=== PATIENT | male | born 1945 | race Two or more races ===

== ENCOUNTER 2018-04-10 06:38 | Inpatient (IN) | payer OTHER ==
[2018-04-10] VITALS (72 sets, daily range): BP systolic 76–169; BP diastolic 42–148
[~2018-04-10] VITALS: Ht 165.1 cm; Wt 71.7 kg
--- NOTE | 2018-04-10 06:44 | NUR ---
PT PRESENTED TO THE ER WITH A C/O SOB. PT IS UZBEK SPEAKING ONLY. AUDIBLE WHEEZING NOTED. PT AMBULATED TO ER 1. DR. OLMSTEAD IS AT THE BEDSIDE.
[2018-04-10] MEDS ORDERED: IPRATROPIUM NEB FS 0.5 MG/2.5 ML AMPUL.NEB ONE (06:50)
[2018-04-10] MEDS ORDERED: methylPREDNISolone SOD SUCC 125 MG/2ML VIAL ONE (06:53)
[2018-04-10] MEDS ORDERED: ASPIRIN 325 MG TABLET ONE (06:53)
--- NOTE | 2018-04-10 06:58 | NUR ---
EKG IN PROGRESS AT THE BEDSIDE.
[2018-04-10] MEDS ORDERED: ASPIRIN 325 MG TABLET PO ONE (07:00)
[2018-04-10] MEDS ORDERED: methylPREDNISolone SOD SUCC 125 MG/2ML VIAL IV ONE (07:00)
[2018-04-10] MEDS ORDERED: ALBUTEROL FS 2.5 MG/3 ML VIAL.NEB NEB ONE (07:00)
[2018-04-10] MEDS ORDERED: IPRATROPIUM NEB FS 0.5 MG/2.5 ML AMPUL.NEB NEB ONE (07:00)
--- NOTE | 2018-04-10 07:00 | NUR ---
BREATHING TX STARTED.
--- NOTE | 2018-04-10 07:08 | NUR ---
RECEIVED REPORT FROM ANDRE ORAL PATHOLOGIST NURSE FOR ANALIA.
[2018-04-10 07:13] LABS: BASOPHILS # (AUTO) 0.1 /CMM (0.0-0.2); BASOPHILS % (AUTO) 0.7 % (0.0-2.0); EOSINOPHILS % (AUTO) 0.6 % (0.0-6.0); HEMATOCRIT 33 % (39-51); HEMOGLOBIN 10.7 g/dL (13.5-17.5); LYMPHOCYTES % (AUTO) 8.1 % (20.0-44.0); MEAN CORPUSCULAR HGB CONC 32 g/dl (31.0-36.0); MEAN CORPUSCULAR VOLUME 93 fL (80-96); NEUTROPHILS # (AUTO) 9.9 /CMM (1.8-8.9); NEUTROPHILS % (AUTO) 82.6 % (43.0-81.0); PLATELET COUNT (AUTO) 220 /CMM (150-450); RED BLOOD CELL COUNT(AUTO) 3.54 MIL/uL (4.5-6.0)
--- NOTE | 2018-04-10 07:20 | NUR ---
TELEGRAPH DISPATCHER AT BEDSIDE FOR X-RAY.
[2018-04-10 07:23] LABS: CALCIUM, SERUM 8.8 mg/dL (8.5-10.1); CARBON DIOXIDE 19 mmol/L (21-32); CHLORIDE 99 mmol/L (98-107); CREATININE 4.1 mg/dL (0.6-1.3); GLUCOSE 95 mg/dL (74-106); POTASSIUM 4.3 mmol/L (3.5-5.1); SODIUM SERUM 131 mmol/L (136-145); UREA NITROGEN, BLOOD 56 mg/dL (7-18)
[2018-04-10] MEDS ORDERED: NITROGLYCERIN PACKET 1 GM PACKET ONE (07:25)
[2018-04-10] MEDS ORDERED: FUROSEMIDE 40 MG/4 ML VIAL ONE (07:25)
[2018-04-10] MEDS ORDERED: FUROSEMIDE 40 MG/4 ML VIAL IV ONE (07:30)
[2018-04-10] MEDS ORDERED: NITROGLYCERIN PACKET 1 GM PACKET TOP ONE (07:30)
--- NOTE | 2018-04-10 07:30 | NUR ---
RT Placed pt on BiPap w charted settings per MD order. Pt tolerating settings well.
[2018-04-10 07:36] LABS: ALANINE AMINOTRANSFERASE 33 U/L (12-78); ALBUMIN 3.7 g/dL (3.4-5.0); ALKALINE PHOSPHATASE 40 U/L (46-116); ASPARTATE AMINOTRANSFERASE 27 U/L (15-37); B-TYPE NATRIURETIC PEPTIDE 15723 PG/ML (0-125); BILIRUBIN,DIRECT 0.2 mg/dL (0.0-0.2); BILIRUBIN,TOTAL 0.6 mg/dL (0.2-1.0); TOTAL PROTEIN, SERUM 7.2 g/dL (6.4-8.2)
[2018-04-10] MEDS ORDERED: DILTIAZEM HCL 50 MG IV ONE (07:58)
[2018-04-10] MEDS ORDERED: DILTIAZEM HCL 25 MG IV IV ONE (08:00)
--- NOTE | 2018-04-10 08:08 | NUR ---
[facility] PAGED ITS DR. HUTCHINS
[2018-04-10] MEDS ORDERED: OMEP20CA10 PO (08:23)
[2018-04-10] MEDS ORDERED: FURO40TA5 PO (08:23)
[2018-04-10] MEDS ORDERED: ALBU2.5V38 NEB (08:23)
[2018-04-10] MEDS ORDERED: TACR0.5C4 PO (08:23)
[2018-04-10] MEDS ORDERED: ALLO300T2 PO (08:23)
[2018-04-10] MEDS ORDERED: PRED10TA PO (08:23)
[2018-04-10] MEDS ORDERED: CARV3.122 PO (08:23)
[2018-04-10] MEDS ORDERED: LOSA25TA27 PO (08:23)
[2018-04-10] MEDS ORDERED: HYDR100T27 PO (08:23)
[2018-04-10] MEDS ORDERED: AMLO10TA6 PO (08:23)
[2018-04-10] MEDS ORDERED: IPRA4AER IH (08:23)
[2018-04-10] MEDS ORDERED: LEVO150T8 PO (08:23)
[2018-04-10] MEDS ORDERED: SODI650T PO (08:24)
--- NOTE | 2018-04-10 08:58 | NUR ---
CALLED PNEUMATIC TESTER MECHANIC AWILDA AND REPORT GIVEN, PATIENT IS GOING TO ROOM 259.
[2018-04-10] MEDS ORDERED: NTG 50 MG/D5W250 ML BOTTL 250 ML IV ONE ×2 (09:00→09:03)
[2018-04-10] MEDS ORDERED: ZOLPIDEM TARTRATE 5 MG TABLET PO PRN (09:30)
[2018-04-10] MEDS ORDERED: Z GUARD REMEDY 2 OZ OINT TP PRN (09:30)
[2018-04-10] MEDS ORDERED: ENOXAPARIN SODIUM 40 MG/0.4 ML DISP.SYRIN SQ SCH (09:30)
--- NOTE | 2018-04-10 09:30 | NUR ---
WHEELED PATIENT TO ICU GOING TO ROOM 259 VIA ACLS PROTOCOL.
--- NOTE | 2018-04-10 09:35 | NUR ---
DR RAMIREZ AT BEDSIDE. PER MD OBTAIN ABG AGAIN, DUPLEX VENOUS BLE TO R/O DVT.
--- NOTE | 2018-04-10 09:38 | NUR ---
received patient from er. on bipap for sob. patient noted with retractions and nasal flaring. once placed on bipap saturation 100%. abif rvr with any activity s/p cardizem admin. iv sites c/d/i/p. with nitro gtt running at 10; will titrate per protocol. skin intact. belongings accounted for. safety, skin, aspiration precautions in place and will monitor
--- NOTE | 2018-04-10 09:50 | NUR ---
PER DR MERCHANT CONTINUE NITRO GTT AND MD AWARE OF PATIENT HR AFIB 120-130'S. NO NEW ORDERS. WILL MONITOR
[2018-04-10] MEDS ORDERED: HEPARIN SODIUM, PORCINE 5000 UNITS/1 ML VIAL SQ SCH (10:00)
[2018-04-10] MEDS ORDERED: NTG 50 MG/D5W250 ML BOTTL 250 ML IV PRN (10:00)
[2018-04-10 10:09] LABS: ABG BASE EXCESS -6.6 mmol/L; ABG OXYGEN SATURATION 95.9 % (92.0-98.5); ABG PCO2 33.8 mmHg (35.0-45.0); ABG PH 7.349 (7.350-7.450); ABG PO2 90.1 mmHg (75.0-100.0); AaDO2 156.2 mmHg; COHb 0.3 % (0.5-1.5); MetHb 0.3 % (0.0-1.5); O2Hb 95.3 % (94.0-97.0); SITE, ABG Right Radial; VENT MODE, BG BIPAP 15/5 R16 40%
[2018-04-10] MEDS: HEPARIN SODIUM, PORCINE 5000 UNITS/1 ML VIAL SQ SCH ×2 (10:11→17:44)
[2018-04-10 10:23] LABS: MAGNESIUM 1.9 mg/dL (1.8-2.4)
[2018-04-10] MEDS ORDERED: BUMETANIDE INJ 8 MG in IV NS 0.9% 48 ML IV ONE (10:30)
[2018-04-10 10:40] LABS: IRON, SERUM 13 ug/dl (50-175); TOTAL IRON BINDING CAPACITY 361 ug/dl (250-450)
[2018-04-10 10:42] LABS: CHOLESTEROL 166 mg/dL (<200); FERRITIN 106 ng/mL (8-388); HDL CHOLESTEROL 71 mg/dL (40-60); LDL 84 mg/dL (0-99); THYROID STIMULATING HORMONE 1.943 uIU/mL (0.358-3.74); TRIGLYCERIDES 76 mg/dL (30-150)
[2018-04-10] MEDS: IPRATROPIUM NEB FS 0.5 MG/2.5 ML AMPUL.NEB NEB SCH ×3 (10:50→19:26)
--- NOTE | 2018-04-10 10:51 | NUR ---
RT HHN TX HELD DUE TO ELEVATED HR.
--- NOTE | 2018-04-10 12:45 | NUR ---
notified dr lance patient hr continues 130's-150's at rest. per md monitor no new orders. patient needs to diurese. per dr lance patient on ntg gtt to assist with vasodilating to help diurese. target bp under 140 systolic.
--- NOTE | 2018-04-10 16:02 | NUR ---
RT HHN TX NOT GIVEN HR 140. PATIENT HAS NO COMPLAINTS OF SOB AT THIS TIME.
--- NOTE | 2018-04-10 18:02 | NUR ---
DR MERCHANT AWARE PATIENT OUTPUT SINCE BUMEX GIVEN 800ML AND HR CONTINUES IN THE 140'S-150'S. PER MD PLEASE CONSULT WITH NEPHRO. MESSAGE LEFT WITH DR HUTCHINS OF THE ABOVE.
--- NOTE | 2018-04-10 18:53 | NUR ---
ALL DUE MEDS GIVEN AND ALL NEEDS MET. STRICT I&O MONITORED. IV SITES C/D/I/P. PATIENT AT THIS TIME ON NASAL CANNULA 4L TOLERATING WELL SATURATION 95% AND ABOVE. PATIENT CARE ENDORSED TO RN FOR ANALIA.
--- NOTE | 2018-04-10 19:50 | NUR ---
RN NOTES RECEIVED PT AWAKE ON BED. WITH O2 4LPM VIA NC 94-98% BUT SOB NOTED. WHEEZING AND CRACKLES HEARD ON BILATERAL BREATH SOUND. PATIENT IS AOX 3, DENIES PAIN. A- FIB 130'S- 140'S PER PREVIOUS NURSE. DR. MERCHANT IS AWARE. WITH IV SITE ON LH G 20 AND RH G 20 RUNNING WITH NITRO DRIP @ 20 MCG/MIN SBP 120'S. TOLERATED WELL. PT IS ABLE TO TURNED HIMSELF ON THE BED. ASKED RT TO PLACED BACK TO BIPAP AND PT AGREED. BIPAP PLACED BY RT AND TOLERATED WELL. KEPT PT CLEAN AND DRY. CALL LIGHT KEPT WITHIN EASY REACH.
[2018-04-11] VITALS (77 sets, daily range): BP systolic 88–217; BP diastolic 57–127
[2018-04-11] MEDS: IPRATROPIUM NEB FS 0.5 MG/2.5 ML AMPUL.NEB NEB SCH ×7 (00:01→23:15)
[2018-04-11] MEDS: HEPARIN SODIUM, PORCINE 5000 UNITS/1 ML VIAL SQ SCH ×3 (02:37→17:23)
--- NOTE | 2018-04-11 04:10 | NUR ---
RN NOTES PT IS COUGHING HARD TRYING TO SPIT UP THE PHLEGM. BIPAP REMOVED REQUESTING TO TAKE IT OFF FOR A WHILE BECAUSE OF HIS SPUTUM RISK AND BENEFITS EXPLAINED PT IS AWARE. PLACE PT ON O2 4LPM VIA NC SATURATION 95% COMFORTABLE ON BED. BED BATH DONE. AND TOLERATED WELL. PAIN MEDICINE GIVEN PT COMPLAINING OF CHEST PAIN AT 7/10 SCALE. WILL CLOSELY MONITOR.
[2018-04-11 04:40] LABS: APPEARANCE,URINE CLEAR (CLEAR); BILIRUBIN,URINE NEGATIVE (NEGATIVE); BLOOD, URINE NEGATIVE Ery/uL (NEGATIVE); COLOR,URINE YELLOW (YELLOW); KETONES,URINE NEGATIVE (NEGATIVE); LEUKOCYTE ESTERASE ,URINE NEGATIVE (NEGATIVE); NITRITE, URINE NEGATIVE (NEGATIVE); PH,URINE 5.5 (5.0-8.0); PROTEIN,URINE 2+ mg/dl (NEGATIVE); UGLUCOSE NEGATIVE (NEGATIVE); UROBILINOGEN,URINE 0.2 EU/dL (0.2)
[2018-04-11 04:50] LABS: ALANINE AMINOTRANSFERASE 25 U/L (12-78); ALKALINE PHOSPHATASE 35 U/L (46-116); ASPARTATE AMINOTRANSFERASE 16 U/L (15-37); BILIRUBIN,TOTAL 0.4 mg/dL (0.2-1.0); CALCIUM, SERUM 8.7 mg/dL (8.5-10.1); CARBON DIOXIDE 19 mmol/L (21-32); CHLORIDE 104 mmol/L (98-107); CREATININE 5.5 mg/dL (0.6-1.3); GLUCOSE 95 mg/dL (74-106); POTASSIUM 4.4 mmol/L (3.5-5.1); SODIUM SERUM 139 mmol/L (136-145); TOTAL PROTEIN, SERUM 6.5 g/dL (6.4-8.2); UREA NITROGEN, BLOOD 76 mg/dL (7-18)
[2018-04-11] MEDS: HYDROCODONE/APAP 5/325MG 1 EACH TABLET PO PRN (04:54)
[2018-04-11 04:59] LABS: CHOLESTEROL 158 mg/dL (<200); HDL CHOLESTEROL 69 mg/dL (40-60); LDL 83 mg/dL (0-99); THYROID STIMULATING HORMONE 0.823 uIU/mL (0.358-3.74); TRIGLYCERIDES 67 mg/dL (30-150)
[2018-04-11 05:09] LABS: BASOPHILS % (AUTO) 0.1 % (0.0-2.0); HEMATOCRIT 30 % (39-51); LYMPHOCYTES # (AUTO) 0.7 /CMM (0.8-4.8); LYMPHOCYTES % (AUTO) 12.8 % (20.0-44.0); MEAN CORPUSCULAR HGB CONC 33 g/dl (31.0-36.0); MEAN CORPUSCULAR VOLUME 93 fL (80-96); MONOCYTES # (AUTO) 0.4 /CMM (0.1-1.30); MONOCYTES % (AUTO) 8.2 % (2.0-12.0); NEUTROPHILS # (AUTO) 4.3 /CMM (1.8-8.9); NEUTROPHILS % (AUTO) 78.9 % (43.0-81.0); PLATELET COUNT (AUTO) 213 /CMM (150-450); RED BLOOD CELL COUNT(AUTO) 3.25 MIL/uL (4.5-6.0); WHITE BLOOD COUNT (AUTO) 5.5 K/uL (4.3-11.0)
[2018-04-11 05:09] LABS: BACTERIA,URINE Rare /HPF (None Seen); RBC,URINE 0-2 /HPF (0-2); SQUAMOUS EPITHELIAL CELL,UR Rare /HPF (None Seen); WBC,URINE 0-2 /HPF (0-3)
--- NOTE | 2018-04-11 06:29 | NUR ---
RN NOTES PT ASLEEP AT THIS TIME. STILL WANTED O2 VIA NASAL CANULA. SATURATION 95%. BP 122/93 MMHG HR 123 SATURATION 93%. NO ACUTE RESPIRATORY DISTRESS. PAIN MEDICINE EFFECTIVE. CONTINUE WITH NITRO DRIP @ 2 MCG/MIN ON LEFT HAND. 2 IV SITE REMAINED INTACT AND PATENT. CONTINUE TO ENCOURAGED TO URINATE. KEPT PT CLEAN AND COMFORTABLE IN BED. ALL NEEDS ATTENDED. CALL LIGHT KEPT WITHIN EASY REACH. WILL ENDORSED CONTINUITY OF CARE TO AM NURSE.
--- NOTE | 2018-04-11 07:17 | NUR ---
RECEIVED CARE OF PATIENT. A/OX3 AWAKE. CURRENTLY ON 4L NC SATURATION STABLE NO NOTED SOB, DIFFICULTY BREATHING OR EXCESSORY MUSCLE USE. PER RN PATIENT REFUSING BIPAP AT THIS TIME S/T INCREASED SECRETIONS AND BIPAP MAKING HIM UNABLE TO EXPECTORATE. PATIENT C/O CHOKING ON MUCOUS WITH BIPAP. WILL F/U WITH MD. IV SITES C/D/I/P WITH NITRO GTT RUNNING 2MCG/MIN. SAFETY, SKIN, ASPIRATION PRECAUTIONS IN PLACE AND WILL MONITOR
--- NOTE | 2018-04-11 07:48 | NUR ---
RT HHN TX NOT GIVEN PER ELEVATED HR. PATIENT HAS NO COMPLAINTS OF SOB. B/S COARSE
--- NOTE | 2018-04-11 08:00 | NUR ---
DR MERCHANT AT BEDSIDE. UPDATED ON PATIENT CONDITION. STILL PENDING NEPHRO CONSULT. PER DR MERCHANT OK TO DC NITRO GTT
[2018-04-11] MEDS: NITROGLYCERIN 30 GM TUBE TP SCH ×2 (09:03→20:56)
[2018-04-11 09:12] LABS: ABG BASE EXCESS -5.9 mmol/L; ABG OXYGEN SATURATION 90.3 % (92.0-98.5); ABG PCO2 31.9 mmHg (35.0-45.0); ABG PH 7.377 (7.350-7.450); ABG PO2 62.4 mmHg (75.0-100.0); AaDO2 186.1 mmHg; COHb 0.3 % (0.5-1.5); MetHb 0.5 % (0.0-1.5); O2Hb 89.6 % (94.0-97.0); SITE, ABG Right Radial; VENT MODE, BG 4L NC
--- NOTE | 2018-04-11 09:13 | NUR ---
NOTIFIED DR RAMIREZ OF PATIENT ABG. PER MD NO NEW ORDERS.
[2018-04-11] MEDS: IV D5/ 0.9% NACL 1,000 ML IV PRN (10:55)
--- NOTE | 2018-04-11 11:12 | NUR ---
RT HHN TX HELD DUE TO ELEVATED HR. PATIENT AWAKE ALERT AND IN NO DISTRESS
--- NOTE | 2018-04-11 12:54 | NUR ---
DR DENIS AT BEDSIDE. AWARE MED RECON READY. DR DYER AT BEDSIDE. SPOKE WITH KAREN AND GIVEN PATIENT PRIMARY HAIR SPINNING MACHINE OPERATOR # TO CONTACT
[2018-04-11] MEDS: SOD FERRIC GLUC 125 MG in IV NS 0.9% 100 ML IV SCH (13:47)
--- NOTE | 2018-04-11 15:23 | NUR ---
RT HHN TX HELD DUE TO ELEVATED HR. PATIENT AWAKE ALERT ZERO SOB
--- NOTE | 2018-04-11 18:44 | NUR ---
ALL DUE MEDS GIVEN AND ALL NEEDS MET. TOLERATING LOW FLOW O2 AND INDEPENDENT OUT OF BED WITH MINIMAL SOB. WITH ACTIVITY O2 SAT STABLE. SAFETY, SKIN ASPIRATION PRECAUTIONS IN PLACE AND MONITORED THROUGHOUT DAY.
--- NOTE | 2018-04-11 19:30 | NUR ---
RN NOTES PT IS AWAKE AOX3 LAYING ON BED. WITH O2 4LPM VIA NC SATURATION 95% NO SOB BILATERAL BREATH SOUND CRACKLES. PATIENT IS AOX3, DENIES PAIN. A- FIB UNCONTROLLED HR 113/ WITH IV SITE ON LEFT HAND G 20 RUNNING WITH D5 NS @ 75 ML/HR INTACT AND PATENT. PT AGREES FOR BIPAP, BIPAP PLACED BY RT. DENIES CHEST PAIN OR ANY PAIN. AFEBRILE. KEPT HOB ELEVATED. KEPT CLEAN AND DRY WILL CONTINUE TO MONITOR. REMINDED TO USED CALL LIGHT FOR ASSISTANCE.
[2018-04-11] MEDS: CARVEDILOL 3.125 MG TABLET PO SCH (20:56)
[2018-04-12] VITALS (49 sets, daily range): BP systolic 97–158; BP diastolic 19–109
--- NOTE | 2018-04-12 01:00 | NUR ---
RN NOTES SON STEFF CAME AND PICKED UP THE PATIENT CAR KEYS ANDIE SISTER AWARE AND PATIENT AWAKE AND KNEW.
[2018-04-12] MEDS: HEPARIN SODIUM, PORCINE 5000 UNITS/1 ML VIAL SQ SCH ×3 (01:40→17:21)
[2018-04-12] MEDS: IPRATROPIUM NEB FS 0.5 MG/2.5 ML AMPUL.NEB NEB SCH ×6 (03:21→23:37)
[2018-04-12] MEDS: IV D5/ 0.9% NACL 1,000 ML IV PRN (03:52)
[2018-04-12 04:31] LABS: BASOPHILS # (AUTO) 0.1 /CMM (0.0-0.2); EOSINOPHILS % (AUTO) 0.4 % (0.0-6.0); HEMATOCRIT 30 % (39-51); HEMOGLOBIN 10.2 g/dL (13.5-17.5); LYMPHOCYTES # (AUTO) 1.2 /CMM (0.8-4.8); LYMPHOCYTES % (AUTO) 16.5 % (20.0-44.0); MEAN CORPUSCULAR HGB CONC 33 g/dl (31.0-36.0); MEAN CORPUSCULAR VOLUME 92 fL (80-96); MONOCYTES # (AUTO) 0.5 /CMM (0.1-1.30); MONOCYTES % (AUTO) 7.5 % (2.0-12.0); NEUTROPHILS # (AUTO) 5.4 /CMM (1.8-8.9); NEUTROPHILS % (AUTO) 74.6 % (43.0-81.0); PLATELET COUNT (AUTO) 222 /CMM (150-450); WHITE BLOOD COUNT (AUTO) 7.3 K/uL (4.3-11.0)
[2018-04-12 04:47] LABS: ALANINE AMINOTRANSFERASE 21 U/L (12-78); ALBUMIN 2.8 g/dL (3.4-5.0); ALKALINE PHOSPHATASE 32 U/L (46-116); ASPARTATE AMINOTRANSFERASE 14 U/L (15-37); BILIRUBIN,TOTAL 0.3 mg/dL (0.2-1.0); CALCIUM, SERUM 8.2 mg/dL (8.5-10.1); CARBON DIOXIDE 22 mmol/L (21-32); CHLORIDE 107 mmol/L (98-107); CREATININE 5.6 mg/dL (0.6-1.3); GLUCOSE 129 mg/dL (74-106); MAGNESIUM 2.2 mg/dL (1.8-2.4); PHOSPHORUS 5.2 mg/dL (2.5-4.9); POTASSIUM 4.6 mmol/L (3.5-5.1); SODIUM SERUM 141 mmol/L (136-145)
[2018-04-12 04:52] LABS: UREA NITROGEN, BLOOD 89 mg/dL (7-18)
--- NOTE | 2018-04-12 07:10 | NUR ---
RN INITIAL NOTES: Rec'd pt awake on bed, A/O x 4, denies any pain & discomfort at this time. On NC at 4lpm, sating at 94%, noted non productive cough. On telemonitor, uncontrolled A.fib HR 120-140's. Has IV on L hand G20 w/ D5NS x 75 cc/hr infusing well. Pt is independent w/ bed mobility. Provided comfort & safety measures. Bed kept low & in locked pos. Call light placed w/in reach. Will cont. to monitor & attend pt needs.
--- NOTE | 2018-04-12 07:26 | NUR ---
RN NOTES PATIENT REMAINED IN STABLE CONDITION TOLERATED O2 4LPM VIA NC STARTED AT 1AM UNTIL THIS TIME 7 AM PT REFUSED TO HAVE BIPAP PER PATIENT HIS VERY TIRED IN A LONG PERIOD OF TIME. NO SIGNIFICANT CHANGES OF CONDITION THROUGHOUT THE SHIFT. AFEBRILE. BED BATH DONE AND TOLERATED WELL WITHOUT DESATURATION. SATURATION KEPT >88%. PT IS CLEANED AND DRY. NO BOWEL THROUGHOUT THE SHIFT ENDORSED TO AM NURSE AND THE CONTINUITY OF CARE TO AM NURSE.
[2018-04-12] MEDS: LEVOTHYROXINE SODIUM 75 MCG TABLET PO SCH (08:02)
--- NOTE | 2018-04-12 09:00 | NUR ---
Pt seen & examined by Dr. Banks & updated about pt condition.
--- NOTE | 2018-04-12 09:15 | NUR ---
Dr. Thomas updated about pt's HR, still uncontrolled A.fib w/ HR 140-160's. Per , pt to be seen by Dr. Somers.
[2018-04-12] MEDS: CARVEDILOL 3.125 MG TABLET PO SCH (09:16)
[2018-04-12] MEDS: NITROGLYCERIN 30 GM TUBE TP SCH (09:17)
--- NOTE | 2018-04-12 10:55 | NUR ---
Pt seen & examined by Dr. Fong. MD made aware of uncontrolled Afib HR 140-160's. Per MD if HR sustained at 160's, give 1 dose of Cardizem 15mg IVP. MD also noted that pt is wheezing, c/o pain on RLQ abdomen w/ NNO.
--- NOTE | 2018-04-12 13:18 | NUR ---
Pt seen & examined by Dr. Jordan w/ orders made & carried out.
[2018-04-12] MEDS: DILTIAZEM HCL 30 MG TABLET PO SCH ×3 (13:45→23:35)
[2018-04-12] MEDS: SOD FERRIC GLUC 125 MG in IV NS 0.9% 100 ML IV SCH (13:59)
[2018-04-12] MEDS ORDERED: DILTIAZEM HCL 25 MG IV IV ONE (14:00)
--- NOTE | 2018-04-12 18:43 | NUR ---
RN CLOSING NOTES: Pt able to tolerate NC at 4lpm, but still w/ episode of SOB. On telemonitor, controlled A.fib. IV on L hand G20 SL & RFA G20 SL kept patent & intact w/ no s/sx of infection/infiltration noted. Kept well rested. Needs attended comfort & safety measures. Bed kept low & in locked pos. Call light placed w/in reach. Will endorse to PM RN for ANALIA.
--- NOTE | 2018-04-12 20:00 | NUR ---
FLOWER STRIPPER - Notes - Received pt awake in bed, A/O x 4, denies any pain & discomfort at this time. On NC at 4 lpm, sating at 94%, noted productive cough. On telemonitor, controlled A fib HR 80's. Has IV in L hand 20G and R forearm 20G c/d/i. Pt is independent w/ bed mobility. Provided comfort & safety measures. Bed kept low & in locked pos. Call light placed w/in reach. Will cont. to monitor & attend pt needs.
--- NOTE | 2018-04-12 22:00 | NUR ---
PT IS REFUSING BIPAP, NO RESP DISTRESS, WILL CONTINUE TO MONITOR
[2018-04-13] VITALS (25 sets, daily range): BP systolic 115–166; BP diastolic 73–108
[2018-04-13] MEDS: HEPARIN SODIUM, PORCINE 5000 UNITS/1 ML VIAL SQ SCH ×3 (01:25→17:10)
[2018-04-13] MEDS: IPRATROPIUM NEB FS 0.5 MG/2.5 ML AMPUL.NEB NEB SCH ×6 (03:16→22:35)
[2018-04-13 04:37] LABS: BASOPHILS # (AUTO) 0.1 /CMM (0.0-0.2); BASOPHILS % (AUTO) 0.9 % (0.0-2.0); EOSINOPHILS % (AUTO) 3.2 % (0.0-6.0); HEMATOCRIT 32 % (39-51); HEMOGLOBIN 10.7 g/dL (13.5-17.5); LYMPHOCYTES # (AUTO) 2.1 /CMM (0.8-4.8); LYMPHOCYTES % (AUTO) 29.8 % (20.0-44.0); MEAN CORPUSCULAR HGB CONC 33 g/dl (31.0-36.0); MEAN CORPUSCULAR VOLUME 92 fL (80-96); MONOCYTES # (AUTO) 0.7 /CMM (0.1-1.30); MONOCYTES % (AUTO) 9.2 % (2.0-12.0); NEUTROPHILS % (AUTO) 56.9 % (43.0-81.0); PLATELET COUNT (AUTO) 224 /CMM (150-450); RED BLOOD CELL COUNT(AUTO) 3.52 MIL/uL (4.5-6.0); WHITE BLOOD COUNT (AUTO) 7.1 K/uL (4.3-11.0)
[2018-04-13 04:49] LABS: ALANINE AMINOTRANSFERASE 22 U/L (12-78); ALBUMIN 2.9 g/dL (3.4-5.0); ALKALINE PHOSPHATASE 34 U/L (46-116); ASPARTATE AMINOTRANSFERASE 17 U/L (15-37); BILIRUBIN,TOTAL 0.3 mg/dL (0.2-1.0); CALCIUM, SERUM 8.2 mg/dL (8.5-10.1); CARBON DIOXIDE 22 mmol/L (21-32); CHLORIDE 106 mmol/L (98-107); CREATININE 4.8 mg/dL (0.6-1.3); GLUCOSE 86 mg/dL (74-106); MAGNESIUM 2.1 mg/dL (1.8-2.4); PHOSPHORUS 4.6 mg/dL (2.5-4.9); POTASSIUM 4.5 mmol/L (3.5-5.1); SODIUM SERUM 139 mmol/L (136-145); TOTAL PROTEIN, SERUM 6.3 g/dL (6.4-8.2)
[2018-04-13 04:54] LABS: UREA NITROGEN, BLOOD 80 mg/dL (7-18)
[2018-04-13] MEDS: DILTIAZEM HCL 30 MG TABLET PO SCH (05:35)
--- NOTE | 2018-04-13 07:10 | NUR ---
RN INITIAL NOTES: Rec'd pt awake on bed, A/O x 4, c/o mild headache. On NC at 4lpm, sating at >92%, noted non productive cough. Per report, pt refused Bipap at HS. On telemonitor, controlled A.fib. Has IV on L hand G20 & RFA G20, both SL w/ no s/sx of infection/infiltration noted. Pt is independent w/ bed mobility. Provided comfort & safety measures. Bed kept low & in locked pos. Call light placed w/in reach. Will cont. to monitor & attend pt needs.
[2018-04-13] MEDS: ACETAMINOPHEN 325 MG TABLET PO PRN ×2 (07:53→17:54)
[2018-04-13] MEDS: LEVOTHYROXINE SODIUM 75 MCG TABLET PO SCH (07:53)
--- NOTE | 2018-04-13 09:00 | NUR ---
Pt seen & examined by Dr. Fong w/ orders may transfer pt to [facility].
--- NOTE | 2018-04-13 10:00 | NUR ---
Pt seen & examined by Dr. Gunn. Ordered to do suctioning, RT made aware. Per RT, pt is refusing, said that he can expectorate his phlegm. Will continue to monitor for now.
[2018-04-13] MEDS ORDERED: BUMETANIDE INJ 3 MG in IV NS 0.9% 48 ML IV ONE (11:00)
[2018-04-13] MEDS: SOD FERRIC GLUC 125 MG in IV NS 0.9% 100 ML IV SCH (14:36)
--- NOTE | 2018-04-13 16:56 | NUR ---
Dr. Somers made aware re: uncontrolled Afib w/ HR >100's - 120's. Addendum: 04/13/18 at 1743 by TRU TOUSSAINT RN Per Dr. Somers, still okay to transfer to [facility].
--- NOTE | 2018-04-13 18:20 | NUR ---
SPOUT TENDER NOTES: Pt transferred to [facility] via bed, ACLS protocol. Pt not in any distress, A/O x 4. IV line access on RFA G20 & L hand G20 kept patent & intact w/ no s/sx of infection/infiltration noted. All belongings sent w/ pt. Per pt he has his wallet & money on it but wallet is not listed on his belonging list. Pt stated that he will call his son to confirm. Report given to Roxanna RN.
--- NOTE | 2018-04-13 18:46 | NUR ---
RN NOTES RECEIVED PATIENT FROM ICU. PATIENT AWAKE, ALERT AND ORIENTEDX4, ABLE TO MAKE NEEDS KNOWN, ON OXYGEN SUPPORT VIA NASAL CANNULA WITH 4LPM, USES ACCESSORY MUSCLE WHEN BREATHING, SATING AT 96%, PATIENT PLACE COMFORTABLE AND WARMTH, ATTACHED TO TELEMONITOR: AFIB WITH HR AT 124, VITAL SIGNS TAKEN AND FOLLOWS BP AT 143/66, RR AT 23, TEMP AT 97.6. IV LINE TO THE L HAND G20 AND R FA G 20: BOTH IN PLACE AND INTACT: SALINE LOCK. PATIENT INDEPENDENT ON MOBILITY, ORIENTED TO FLOOR, SAFETY MEASURES INITIATED, CALL LIGHT PLACE WITHIN EASY REACH, WILL ANTICIPATE NEEDS AND MONITOR.
--- NOTE | 2018-04-13 19:00 | NUR ---
RN NOTES PATIENT ENDORSED FOR CONTINUITY OF CARE. NO ACUTE CHANGES SINCE TRANSFER TO THE UNIT.
--- NOTE | 2018-04-13 20:00 | NUR ---
[facility] RN NOTES RECEIVED PTS IN BED A/OX3 , V/S STABLE AFEBRILE , ON TELE MONITOR -AFIB 109 WITH PVC AND A FLUTTER, NO SOB NO DISTRESS NOTED ,PTS ON 4LITERS OF O2 VIA NC SATING 97% pts refused nocturnal bipap, all needs attended too , call light within reach , due meds given as ordered kept pts clean dry and comfortable
[2018-04-13 21:40] LABS: OCCULT BLOOD STOOL NEGATIVE (NEGATIVE)
[2018-04-14] VITALS: BP 133/77
[2018-04-14] MEDS: HEPARIN SODIUM, PORCINE 5000 UNITS/1 ML VIAL SQ SCH ×3 (01:52→17:06)
[2018-04-14] MEDS: IPRATROPIUM NEB FS 0.5 MG/2.5 ML AMPUL.NEB NEB SCH ×5 (02:59→19:27)
[2018-04-14 04:00] VITALS: BP 130/75
[2018-04-14 07:31] LABS: BASOPHILS % (AUTO) 0.5 % (0.0-2.0); HEMATOCRIT 36 % (39-51); HEMOGLOBIN 11.6 g/dL (13.5-17.5); LYMPHOCYTES # (AUTO) 2.5 /CMM (0.8-4.8); LYMPHOCYTES % (AUTO) 31.1 % (20.0-44.0); MEAN CORPUSCULAR HGB CONC 33 g/dl (31.0-36.0); MEAN CORPUSCULAR VOLUME 93 fL (80-96); MONOCYTES # (AUTO) 0.8 /CMM (0.1-1.30); NEUTROPHILS # (AUTO) 4.4 /CMM (1.8-8.9); NEUTROPHILS % (AUTO) 54.4 % (43.0-81.0); PLATELET COUNT (AUTO) 258 /CMM (150-450); RED BLOOD CELL COUNT(AUTO) 3.85 MIL/uL (4.5-6.0)
[2018-04-14 07:43] LABS: CALCIUM, SERUM 7.6 mg/dL (8.5-10.1); CARBON DIOXIDE 20 mmol/L (21-32); CHLORIDE 105 mmol/L (98-107); CREATININE 4.6 mg/dL (0.6-1.3); GLUCOSE 89 mg/dL (74-106); SODIUM SERUM 139 mmol/L (136-145); UREA NITROGEN, BLOOD 74 mg/dL (7-18)
[2018-04-14 08:00] VITALS: BP 145/96
--- NOTE | 2018-04-14 08:08 | NUR ---
received pt from table games shift manager, a/o x4, follows commands, Afib controlled, on 4L NC sat well, tolerated diet, BRP, v/s stable, no pain, pt turns and repositions by himself.
[2018-04-14] MEDS: LEVOTHYROXINE SODIUM 75 MCG TABLET PO SCH (08:19)
[2018-04-14] MEDS ORDERED: BUMETANIDE INJ 4 MG in IV D5W 24 ML IV ONE (10:00)
[2018-04-14] MEDS: DILTIAZEM HCL CD 240 MG PO SCH (10:46)
[2018-04-14 12:00] VITALS: BP 131/73
[2018-04-14] MEDS: SOD FERRIC GLUC 125 MG in IV NS 0.9% 100 ML IV SCH (14:30)
[2018-04-14 16:00] VITALS: BP 134/59
--- NOTE | 2018-04-14 16:15 | NUR ---
pt is resting in the bed, alert, follows commands, v/s stable, no pain.
--- NOTE | 2018-04-14 19:11 | NUR ---
TD RN NOTES RECEIVED PT ON BED. ON ROOM AIR. NO RESPIRATORY DISTRESS NOTED. ON TELE MONITOR AFIB 99. IV ACCESS ON RFA G20 AND LEFT HAND G20 PATENT AND INTACT. HEAD OF BED ELEVATED. SIDE RAILS UP. CALL LIGHT WITHIN REACH. BED ALARM ON. WILL CONTINUE TO MONITOR PT CLOSELY.
--- NOTE | 2018-04-14 19:42 | NUR ---
TD RN NOTES PT REFUSED NOCTURNAL BIPAP. EXPLAINED BENEFITS. PT STILL REFUSED.
[2018-04-14 20:00] VITALS: BP 132/71
[2018-04-15] VITALS: BP 122/68
[2018-04-15] MEDS: IPRATROPIUM NEB FS 0.5 MG/2.5 ML AMPUL.NEB NEB SCH ×7 (00:02→23:33)
[2018-04-15] MEDS: HEPARIN SODIUM, PORCINE 5000 UNITS/1 ML VIAL SQ SCH ×3 (01:55→17:34)
[2018-04-15 04:00] VITALS: BP 121/70
--- NOTE | 2018-04-15 06:02 | NUR ---
TD RN NOTES PT ON BUMEX WEIGHT DIFFERENCE OF 192LB TO 182 LBS.
[2018-04-15 06:27] LABS: BASOPHILS # (AUTO) 0.1 /CMM (0.0-0.2); BASOPHILS % (AUTO) 1.1 % (0.0-2.0); HEMATOCRIT 36 % (39-51); LYMPHOCYTES % (AUTO) 24.9 % (20.0-44.0); MEAN CORPUSCULAR HGB CONC 33 g/dl (31.0-36.0); MEAN CORPUSCULAR VOLUME 92 fL (80-96); MONOCYTES # (AUTO) 0.6 /CMM (0.1-1.30); MONOCYTES % (AUTO) 7.8 % (2.0-12.0); NEUTROPHILS # (AUTO) 4.9 /CMM (1.8-8.9); NEUTROPHILS % (AUTO) 62.2 % (43.0-81.0); PLATELET COUNT (AUTO) 239 /CMM (150-450); RED BLOOD CELL COUNT(AUTO) 3.96 MIL/uL (4.5-6.0); WHITE BLOOD COUNT (AUTO) 7.9 K/uL (4.3-11.0)
[2018-04-15 06:38] LABS: ALANINE AMINOTRANSFERASE 20 U/L (12-78); ALBUMIN 3.2 g/dL (3.4-5.0); ALKALINE PHOSPHATASE 34 U/L (46-116); ASPARTATE AMINOTRANSFERASE 15 U/L (15-37); BILIRUBIN,TOTAL 0.4 mg/dL (0.2-1.0); CARBON DIOXIDE 21 mmol/L (21-32); CHLORIDE 103 mmol/L (98-107); CREATININE 4.8 mg/dL (0.6-1.3); GLUCOSE 92 mg/dL (74-106); MAGNESIUM 1.8 mg/dL (1.8-2.4); PHOSPHORUS 5.1 mg/dL (2.5-4.9); POTASSIUM 4.6 mmol/L (3.5-5.1); SODIUM SERUM 137 mmol/L (136-145); TOTAL PROTEIN, SERUM 6.8 g/dL (6.4-8.2); UREA NITROGEN, BLOOD 79 mg/dL (7-18)
--- NOTE | 2018-04-15 06:52 | NUR ---
TD RN NOTES NO ACUTE CHANGES NOTED DURING THE SHIFT. PROVIDED COMFORT AND SAFETY. NO RESPIRATORY DISTRESS NOTED. WILL ENDORSE TO THE AM NURSE FOR CONTINUITY OF CARE.
[2018-04-15 08:00] VITALS: BP 149/81
--- NOTE | 2018-04-15 08:00 | NUR ---
[facility] RN NOTE PATIENT IN BED ALERT .ORIENTED ,SPEAKS WELSH , ON TELE MONITOR AFIB 82 , ON 2L NC BUT NOW ON BREATHING TX BY RT , RT FA AND LT HAND HL INTACT ,NO S\S INFECTION NOTED , BED IN LOWEST AND LOCKED POSITION , CALL LIGHT WITHIN REACH , WILL CONT TO MONITOR CLOSELY
[2018-04-15] MEDS: DILTIAZEM HCL CD 240 MG PO SCH (08:36)
[2018-04-15] MEDS: LEVOTHYROXINE SODIUM 75 MCG TABLET PO SCH (08:36)
--- NOTE | 2018-04-15 11:00 | NUR ---
MS RN NOTE ABLE TO AMBULATE AROUND HIS ROOM USING A CANE , ALL NEEDS ATTENDED , ON RA SAT 92% ,
--- NOTE | 2018-04-15 12:36 | NUR ---
MS RN NOTE SITTING AT EDGE OF BED , ABLE TO EAT LUNCH , ALL NEEDS ATTENDED, WILL CONT TO MONITOR CLOSELY
[2018-04-15] MEDS: ACETAMINOPHEN 325 MG TABLET PO PRN (13:14)
--- NOTE | 2018-04-15 13:14 | NUR ---
RN NOTES PRN TYLENOL GIVEN DUE TO COMPLAINTS OF HEADACHE 12/17. WILL CONTINUE TO MONITOR PATEINT
[2018-04-15] MEDS: SOD FERRIC GLUC 125 MG in IV NS 0.9% 100 ML IV SCH (13:45)
--- NOTE | 2018-04-15 14:17 | NUR ---
MS RN NOTE FAMILY AT BEDSIDE CHECK AGAIN. SAT ON RA 92% ,WILL CONT TO MONITOR CLOSELY, BED IN LOWEST AND LOCKED POSITION , CALL LIGHT WITHIN REACH
--- NOTE | 2018-04-15 14:58 | NUR ---
RN NOTES RECEIVED REPORT FROM JUAN MOHAN. PATIENT LYING IN BED ASLEEP , EASILY AWAKEN, VERBALLY RESPONSIVE, NOT ON ANY FORM OF DISTRESS, ON OXYGEN SUPPORT VIA NASAL CANNULA, SATURATING AT 94%, DENIES ANY PAIN AT THIS TIME, IV LINE TO THE RFA AND L HAND: BOTH IN PLACE AND INTACT. WITH ON GOING FERRLECIT. PATIENT INDEPENDENT WITH BED MOBILITY. SAFETY PRECAUTIONS OBSERVED AND MAINTAINED. CALL LIGHT PLACE WITHIN EASY REACH, WILL CONTINUE TO MONITOR PATIENT
--- NOTE | 2018-04-15 14:59 | NUR ---
rn note report given to randolph sims
[2018-04-15 16:00] VITALS: BP 129/62
[2018-04-15] MEDS: MAG HYDROX/AL HYDROX/SIMETH 30 ML UDC PO PRN (18:07)
--- NOTE | 2018-04-15 19:21 | NUR ---
RN NOTES ENDORSED PATIENT TO INCOMING SHIFT. NO ACUTE CHANGES WITHIN THE SHIFT. ALL NURSING NEEDS ANTICIPATED, ATTENDED. SAFETY PRECAUTIONS IN PLACE ALL THE TIME. CALL LIGHT WITHIN REACH
[2018-04-15 20:00] VITALS: BP 144/85
--- NOTE | 2018-04-15 20:35 | NUR ---
RT CPAP NOT INDICATED AT THIS TIME. PT STABLE ON NC. WILL CONT TO MONITOR.
--- NOTE | 2018-04-15 21:39 | NUR ---
RN MS INITIAL NOTES RECEIVED PATIENT SITTING ON BED , ON OXYGEN VIA NASAL CANNULA, SATURATING AT 95%, DENIES ANY PAIN AT THIS TIME, IV LINE TO THE RFA AND L HAND: BOTH IN PLACE AND INTACT. PATIENT INDEPENDENT WITH BED MOBILITY. SAFETY PRECAUTIONS OBSERVED AND MAINTAINED. CALL LIGHT PLACE WITHIN EASY REACH, WILL CONTINUE TO MONITOR PATIENT
--- NOTE | 2018-04-15 23:35 | NUR ---
RT PT PLACED ON CPAP ON ORDERED SETTINGS. WILL CONT TO MONITOR.
[2018-04-16] VITALS: BP 144/85
--- NOTE | 2018-04-16 00:49 | NUR ---
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 No report that patient is being discharge tonight. No notes from machine adjuster leader case trim, no discharge order and family was present at change of shift and was no mention about discharge. Patient sleeping at this time on BIPAP 0049 Shelby from [facility] called ; informed her that patient has no discharge order and no notes or report endorsed that patient is for discharge. Ambulance left. [place], primary RN made aware
--- NOTE | 2018-04-16 01:15 | NUR ---
PT REMOVED CPAP AFTER NUMEROUS ATTEMPTS OT TAKE IT OFF, RISKS AND BENEFIT EXPLAINED, PT STILL REFUSED, OFFERED X3.
--- NOTE | 2018-04-16 01:15 | NUR ---
RT PT REMOVED CPAP. PT REFUSING CPAP. PT PLACED ON NC. RN NOTIFIED.
[2018-04-16] MEDS: HEPARIN SODIUM, PORCINE 5000 UNITS/1 ML VIAL SQ SCH ×3 (01:37→17:51)
[2018-04-16] MEDS: IPRATROPIUM NEB FS 0.5 MG/2.5 ML AMPUL.NEB NEB SCH ×6 (03:20→23:19)
[2018-04-16 04:00] VITALS: BP 112/71
--- NOTE | 2018-04-16 04:40 | NUR ---
ms rn notes received pts from bethany gordon , pts in bed on nc at 2liters sating 94% v/s stable afebrile , will endorse to rn day shift for continuity of care.
[2018-04-16 06:32] LABS: BASOPHILS # (AUTO) 0.1 /CMM (0.0-0.2); BASOPHILS % (AUTO) 0.8 % (0.0-2.0); EOSINOPHILS % (AUTO) 3.4 % (0.0-6.0); HEMATOCRIT 35 % (39-51); HEMOGLOBIN 11.6 g/dL (13.5-17.5); LYMPHOCYTES # (AUTO) 2.3 /CMM (0.8-4.8); MEAN CORPUSCULAR HGB CONC 33 g/dl (31.0-36.0); MEAN CORPUSCULAR VOLUME 92 fL (80-96); MONOCYTES # (AUTO) 0.7 /CMM (0.1-1.30); MONOCYTES % (AUTO) 8.8 % (2.0-12.0); NEUTROPHILS # (AUTO) 4.8 /CMM (1.8-8.9); PLATELET COUNT (AUTO) 235 /CMM (150-450); RED BLOOD CELL COUNT(AUTO) 3.81 MIL/uL (4.5-6.0); WHITE BLOOD COUNT (AUTO) 8.2 K/uL (4.3-11.0)
[2018-04-16 06:59] LABS: CALCIUM, SERUM 8.8 mg/dL (8.5-10.1); CARBON DIOXIDE 22 mmol/L (21-32); CHLORIDE 103 mmol/L (98-107); CREATININE 5.5 mg/dL (0.6-1.3); GLUCOSE 94 mg/dL (74-106); POTASSIUM 4.8 mmol/L (3.5-5.1); SODIUM SERUM 136 mmol/L (136-145)
[2018-04-16 07:18] LABS: UREA NITROGEN, BLOOD 85 mg/dL (7-18)
[2018-04-16 08:00] VITALS: BP 133/83
--- NOTE | 2018-04-16 08:00 | NUR ---
RN MS INITIAL NOTES RECEIVED PATIENT SITTING ON BED , ON OXYGEN VIA NASAL CANNULA AT 2L/MIN VIA NC, SATURATING AT 99%, DENIES ANY PAIN AT THIS TIME, IV HEPLOCKS TO THE RFA AND L HAND: BOTH IN PLACE AND INTACT. PATIENT INDEPENDENT WITH BED MOBILITY. SAFETY PRECAUTIONS OBSERVED AND MAINTAINED. CALL LIGHT PLACE WITHIN EASY REACH, WILL CONTINUE TO MONITOR PATIENT
[2018-04-16] MEDS: LEVOTHYROXINE SODIUM 75 MCG TABLET PO SCH (08:23)
[2018-04-16] MEDS: DILTIAZEM HCL CD 240 MG PO SCH (08:24)
[2018-04-16 09:56] LABS: EOSINOPHILS % (MANUAL) 5 % (0-4); LYMPHOCYTES % (MANUAL) 29 % (16-48); METAMYELOCYTES % 2 % (0-0); MONOCYTES % (MANUAL) 4 % (0-11.0); NEUTROPHILS % (MANUAL) 60 (42-76)
[2018-04-16 16:00] VITALS: BP 134/71
--- NOTE | 2018-04-16 17:57 | NUR ---
PT HAS BEEN OFF OXYGEN FOR 2 HOURS AND THE O2 SAT IS 94% WITH NO C/O SOB.WILL CONTINUE TO MONITOR.
--- NOTE | 2018-04-16 19:55 | NUR ---
[facility] RN NOTES RECEIVED BEDSIDE REPORT FROM AM NURSE. PATIENT IS SLEEPING IN BED AROUSED EASILY , A/A/O X4, ON OXYGEN AT 2L/MIN VIA NC, SATURATING AT 96%, COMPLAINS OF PAIN 3/10 AT THIS TIME AND ASKED FOR TYLENOL PAIN MEDICATION. IV HEPLOCK TO THE RFA IS PATIENT AND INTACT BUT LEFT HAND IV LINE IS LEAKING AND HAS BEEN REMOVED. PATIENT INDEPENDENT WITH BED MOBILITY BUT AMBULATES WITH ASSISTANCE AND ASSISTIVE DEVICE. SAFETY PRECAUTIONS OBSERVED AND MAINTAINED. BED IN LOWEST AND LOCKED POSITION, CALL LIGHT PLACE WITHIN EASY REACH, WILL CONTINUE TO MONITOR PATIENT.
[2018-04-16 20:00] VITALS: BP 134/71
[2018-04-16] MEDS: ACETAMINOPHEN 325 MG TABLET PO PRN (21:51)
[2018-04-17] MEDS: HEPARIN SODIUM, PORCINE 5000 UNITS/1 ML VIAL SQ SCH (02:14)
[2018-04-17] MEDS: IPRATROPIUM NEB FS 0.5 MG/2.5 ML AMPUL.NEB NEB SCH ×5 (03:10→20:22)
[2018-04-17 04:00] VITALS: BP 127/75
[2018-04-17 06:28] LABS: BASOPHILS # (AUTO) 0.1 /CMM (0.0-0.2); EOSINOPHILS % (AUTO) 2.9 % (0.0-6.0); HEMATOCRIT 34 % (39-51); HEMOGLOBIN 11.3 g/dL (13.5-17.5); LYMPHOCYTES % (AUTO) 21.9 % (20.0-44.0); MEAN CORPUSCULAR HGB CONC 33 g/dl (31.0-36.0); MEAN CORPUSCULAR VOLUME 92 fL (80-96); MONOCYTES # (AUTO) 0.9 /CMM (0.1-1.30); MONOCYTES % (AUTO) 9.2 % (2.0-12.0); PLATELET COUNT (AUTO) 227 /CMM (150-450); WHITE BLOOD COUNT (AUTO) 9.2 K/uL (4.3-11.0)
[2018-04-17 06:35] LABS: ALANINE AMINOTRANSFERASE 17 U/L (12-78); ALBUMIN 3.2 g/dL (3.4-5.0); ALKALINE PHOSPHATASE 35 U/L (46-116); ASPARTATE AMINOTRANSFERASE 16 U/L (15-37); BILIRUBIN,TOTAL 0.4 mg/dL (0.2-1.0); CALCIUM, SERUM 9.1 mg/dL (8.5-10.1); CARBON DIOXIDE 23 mmol/L (21-32); CHLORIDE 103 mmol/L (98-107); CREATININE 5.7 mg/dL (0.6-1.3); GLUCOSE 96 mg/dL (74-106); MAGNESIUM 2.1 mg/dL (1.8-2.4); PHOSPHORUS 5.6 mg/dL (2.5-4.9); POTASSIUM 4.8 mmol/L (3.5-5.1); SODIUM SERUM 137 mmol/L (136-145); TOTAL PROTEIN, SERUM 6.7 g/dL (6.4-8.2)
[2018-04-17 06:36] LABS: UREA NITROGEN, BLOOD 82 mg/dL (7-18)
--- NOTE | 2018-04-17 07:30 | NUR ---
RN OPENING NOTES RECEIVED PT. IN BED A&OX4. BREATHING UNLABORED ON OXYGEN AT 2L/MIN VIA NASAL CANNULA. NO SOB AND NO S/S OF ACUTE DISTRESS. PT. IS HAVING A BREATHING TREATMENT AT THIS TIME. BED IS IN LOWEST, AND LOCKED POSITION. 2 SIDE RAILS UP, AND INSTRUCTED PT. TO USE CALL LIGHT FOR ASSISTANCE. ALL NEEDS MET. WILL CONTINUE TO ASSESS AND MONITOR.
[2018-04-17] MEDS: LEVOTHYROXINE SODIUM 75 MCG TABLET PO SCH (07:56)
[2018-04-17 08:00] VITALS: BP 128/72
[2018-04-17 08:38] LABS: EOSINOPHILS % (MANUAL) 4 % (0-4); LYMPHOCYTES % (MANUAL) 23 % (16-48); MONOCYTES % (MANUAL) 9 % (0-11.0); NEUTROPHILS % (MANUAL) 64 (42-76)
[2018-04-17] MEDS: DILTIAZEM HCL CD 240 MG PO SCH (08:42)
[2018-04-17 12:00] VITALS: BP 128/72
[2018-04-17 16:00] VITALS: BP 127/81
[2018-04-17] MEDS: HYDROCODONE/APAP 5/325MG 1 EACH TABLET PO PRN (17:33)
--- NOTE | 2018-04-17 17:55 | NUR ---
PT. C/O OF LEFT HAND AND WRIST PAIN. PT. REPORTS PAIN LEVEL IS A 10/10, OFFERED PT. ICE AND PAIN MEDICATIONS TO MANAGE PAIN. ON ASSESSMENT PT. REPORTS TENDERNESS WHEN PALPATING LEFT HAND, AND DIFFICULTY MOVING WRIST, AND MAKING A FIST. MD WAS CONTACTED NEW ORDERS WERE GIVEN FOR A LEFT HAND X RAY, VENOUS AND ARTERIAL DOPPLER STUDIES ON ENTIRE LEFT ARM.
--- NOTE | 2018-04-17 18:54 | NUR ---
RN CLOSING NOTES PT. IS SITTING UP IN BED, A&OX4. BREATHING UNLABORED ON OXYGEN AT 2.5 L/MIN VIA NASAL CANNULA. NO SOB AND NO S/S OF ACUTE DISTRESS. PT. IS RESTING HIS LEFT HAND ON AN ICE PACK. BED IS IN LOWEST, AND LOCKED POSITION. 2 SIDE RAILS UP, AND INSTRUCTED PT. TO USE CALL LIGHT FOR ASSISTANCE. ALL NEEDS MET. WILL ENDORSE REPORT TO NURSE.
--- NOTE | 2018-04-17 19:57 | NUR ---
MS RN NOTE PT IN BED AWAKE. A/O X 4, BOT[place]NA[place] SPEAKING. NO SOB, NO DISTRESS OR DISCOMFORT NOTED. DENIES PAIN. RT HAND SL #20 G INTACT AND PATENT. SIDE RAILS UP X 2 AND CALL LIGHT WITHIN REACH. VSS. CONTINUE TO MONITOR HIM.
[2018-04-17 20:00] VITALS: BP 138/80
--- NOTE | 2018-04-17 23:00 | NUR ---
MS RN NOTE BIPAP APPLIED PER PT'S REQUEST. TOLERATING WELL. FALLING ASLEEP.
[2018-04-18] MEDS: IPRATROPIUM NEB FS 0.5 MG/2.5 ML AMPUL.NEB NEB SCH ×7 (00:01→23:38)
--- NOTE | 2018-04-18 02:30 | NUR ---
MS RN NOTE PT IS AWAKE AND REMOVED THE BIPAP AND STATES "I DON'T WANT THIS ANYMORE". O2 APPLIED VIA NC NO DISTRESS OR DISCOMFORT NOTED.
[2018-04-18 04:00] VITALS: BP 117/64
[2018-04-18 06:16] LABS: BASOPHILS # (AUTO) 0.1 /CMM (0.0-0.2); BASOPHILS % (AUTO) 1.4 % (0.0-2.0); EOSINOPHILS % (AUTO) 2.7 % (0.0-6.0); HEMATOCRIT 34 % (39-51); HEMOGLOBIN 11.4 g/dL (13.5-17.5); LYMPHOCYTES # (AUTO) 1.5 /CMM (0.8-4.8); LYMPHOCYTES % (AUTO) 19.3 % (20.0-44.0); MEAN CORPUSCULAR HGB CONC 34 g/dl (31.0-36.0); MEAN CORPUSCULAR VOLUME 93 fL (80-96); MONOCYTES # (AUTO) 0.9 /CMM (0.1-1.30); MONOCYTES % (AUTO) 11.7 % (2.0-12.0); NEUTROPHILS % (AUTO) 64.9 % (43.0-81.0); PLATELET COUNT (AUTO) 222 /CMM (150-450); RED BLOOD CELL COUNT(AUTO) 3.67 MIL/uL (4.5-6.0); WHITE BLOOD COUNT (AUTO) 7.8 K/uL (4.3-11.0)
--- NOTE | 2018-04-18 06:39 | NUR ---
MS RN NOTE NO CHANGE IN CONDITION. PT IN BED ASLEEP, AROUSABLE. NO DISTRESS OR DISCOMFORT NOTED. DENIES PAIN. SIDE RAILS UP X 3 AND CALL LIGHT WITHIN REACH. VSS. WILL ENDORSE TO DAY SHIFT NURSE FOR CONTINUE TO CARE.
[2018-04-18 06:41] LABS: ALANINE AMINOTRANSFERASE 19 U/L (12-78); ALBUMIN 3.2 g/dL (3.4-5.0); ALKALINE PHOSPHATASE 34 U/L (46-116); ASPARTATE AMINOTRANSFERASE 17 U/L (15-37); BILIRUBIN,TOTAL 0.4 mg/dL (0.2-1.0); CALCIUM, SERUM 8.9 mg/dL (8.5-10.1); CARBON DIOXIDE 20 mmol/L (21-32); CHLORIDE 102 mmol/L (98-107); CREATININE 5.5 mg/dL (0.6-1.3); GLUCOSE 98 mg/dL (74-106); MAGNESIUM 2.2 mg/dL (1.8-2.4); PHOSPHORUS 5.4 mg/dL (2.5-4.9); POTASSIUM 4.7 mmol/L (3.5-5.1); SODIUM SERUM 136 mmol/L (136-145); TOTAL PROTEIN, SERUM 6.9 g/dL (6.4-8.2); UREA NITROGEN, BLOOD 77 mg/dL (7-18)
--- NOTE | 2018-04-18 07:30 | NUR ---
MS DAY RN NOTE PATIENT RECEIVED IN BED AWAKE. PATIENT AWAKE AAOX4. RN EXPLAINED THAT ONE OF OUR GOALS TODAY WILL BE TO TALK TO THE MD ABOUT POTENTIAL HEMODIALYSIS. PATIENT HAS NO C/O PAIN, NO S/S OF DISTRESS. PATEINT ON 2L O2 NC NO S/S OF /SOB. RN WILL CONTINUE TO MONITOR CLOSELY. ALL NEEDS ATTENDED, BED IN LOWEST LOCKED POSITION, SIDE RAILS UP X 2 CALL LIGHT AT HAND.
[2018-04-18 08:00] VITALS: BP 125/69
[2018-04-18] MEDS: LEVOTHYROXINE SODIUM 75 MCG TABLET PO SCH (08:02)
[2018-04-18] MEDS: ACETAMINOPHEN 325 MG TABLET PO PRN (08:03)
[2018-04-18] MEDS: DILTIAZEM HCL CD 240 MG PO SCH (08:05)
[2018-04-18] MEDS: HYDROCODONE/APAP 5/325MG 1 EACH TABLET PO PRN (11:56)
[2018-04-18 12:00] VITALS: BP 125/69
[2018-04-18] MEDS: ONDANSETRON HCL/PF 4 MG/2 ML VIAL IVP PRN (13:58)
[2018-04-18 16:00] VITALS: BP 121/73
--- NOTE | 2018-04-18 18:41 | NUR ---
MS END OF DAY NOTE PATIENT TOLERATED THE DAY WELL NO S/S OF DISTRESS. PATIENT SHOWED SIGNS OF IMPROVED OXYGENATION NO ACUTE CHANGES DURING SHIFT. REPORT GIVEN TO NIGHT NURSE. TRANSITION OF CARE GIVEN. PATIENT DENIES SOB//PAIN OR DISCOMFORT. BED IN LOWEST LOCKED POSITION/ SIDE RAILS UPX2, CALL LIGHT WITHIN HAND.
--- NOTE | 2018-04-18 19:30 | NUR ---
RN NOTE; RECEIVED PT IN BED AWAKE AND ALERT. BREATHING EVENLY. NO SOB . NAD. SKIN WARM AND DRY. NO C./O PAIN OR DISCOMFORT. NEEDS ATTENDED. BED LOW LOCKED. CALL LIGHT WITHIN REACH, WILL CONT TO MONITOR,.
[2018-04-18 20:00] VITALS: BP 146/80
[2018-04-18 20:20] VITALS: BP 146/80
[2018-04-19] MEDS: IPRATROPIUM NEB FS 0.5 MG/2.5 ML AMPUL.NEB NEB SCH ×6 (03:29→23:30)
[2018-04-19 04:00] VITALS: BP 117/64
--- NOTE | 2018-04-19 06:14 | NUR ---
PT IN BED RESTING COMFORTABLY. BREATHING EVENLY. NO SOB. NO ACUTE EVENT DURING THE NIGHT. NO C/O PAIN OR DISCOMFORT. NEEDS ATTENDED. ASSISTED W/ ADLS ,CALL LIGHT WITHIN REACH. WILL CONT TO MONITOR AND WILL ENDORSE TO AM SHIFT FOR ANALIA
[2018-04-19 06:55] LABS: BASOPHILS # (AUTO) 0.1 /CMM (0.0-0.2); EOSINOPHILS % (AUTO) 2.2 % (0.0-6.0); HEMATOCRIT 34 % (39-51); HEMOGLOBIN 11.2 g/dL (13.5-17.5); LYMPHOCYTES # (AUTO) 1.8 /CMM (0.8-4.8); LYMPHOCYTES % (AUTO) 21.4 % (20.0-44.0); MEAN CORPUSCULAR HGB CONC 33 g/dl (31.0-36.0); MEAN CORPUSCULAR VOLUME 92 fL (80-96); MONOCYTES # (AUTO) 1.1 /CMM (0.1-1.30); MONOCYTES % (AUTO) 13.4 % (2.0-12.0); NEUTROPHILS # (AUTO) 5.3 /CMM (1.8-8.9); PLATELET COUNT (AUTO) 219 /CMM (150-450); RED BLOOD CELL COUNT(AUTO) 3.67 MIL/uL (4.5-6.0); WHITE BLOOD COUNT (AUTO) 8.5 K/uL (4.3-11.0)
[2018-04-19 07:21] LABS: CALCIUM, SERUM 8.7 mg/dL (8.5-10.1); CARBON DIOXIDE 20 mmol/L (21-32); CHLORIDE 102 mmol/L (98-107); CREATININE 5.4 mg/dL (0.6-1.3); GLUCOSE 94 mg/dL (74-106); POTASSIUM 5.3 mmol/L (3.5-5.1); SODIUM SERUM 136 mmol/L (136-145)
[2018-04-19 07:22] LABS: UREA NITROGEN, BLOOD 80 mg/dL (7-18)
[2018-04-19 07:36] LABS: LYMPHOCYTES % (MANUAL) 11 % (16-48); MONOCYTES % (MANUAL) 14 % (0-11.0); NEUTROPHILS % (MANUAL) 75 (42-76)
--- NOTE | 2018-04-19 07:49 | NUR ---
RN INITIAL NOTES RECEIVED PT RESTING IN BED WITH NAD. DENIES PAIN, NO SOB. REMAINS ON O2 INH @ 2 L/MIN VIA NC. SAFETY ENSURED. WILL MONITOR.
[2018-04-19 08:00] VITALS: BP 131/60
[2018-04-19] MEDS: LEVOTHYROXINE SODIUM 75 MCG TABLET PO SCH (08:56)
[2018-04-19] MEDS: DILTIAZEM HCL CD 240 MG PO SCH (08:56)
[2018-04-19] MEDS: ONDANSETRON HCL/PF 4 MG/2 ML VIAL IVP PRN (10:34)
--- NOTE | 2018-04-19 11:23 | NUR ---
RN NOTES ATTEMPTED TO AMBULATE PT 2X BUT PT REFUSED; ACCORDING TO THE PT AND HIS ; PT IS DIZZY AND DOESNT WANT TO WALK.
[2018-04-19] MEDS: ACETAMINOPHEN 325 MG TABLET PO PRN (11:58)
[2018-04-19 16:00] VITALS: BP_SYST 131; BP_DIAS 79; BP_DIAS 99
--- NOTE | 2018-04-19 18:10 | NUR ---
rn notes NO SIGNIFICANT CHANGE NOTED. PT AMBULATED AND TOLERATED WELL. ALL MEDS GIVEN AND NEEDS ATEENDED.
--- NOTE | 2018-04-19 19:45 | NUR ---
[facility] RN NOTES RECEIVED BEDSIDE REPORT FROM AM NURSE. PATIENT IS SLEEPING IN BED AROUSED EASILY , A/A/O X4, ON OXYGEN AT 2L/MIN VIA NC, SATURATING AT 95%, COMPLAINS OF RIGHT ARM PAIN 3/10 AT THIS TIME AND ASKED FOR TYLENOL A PAIN MEDICATION. IV HEPLOCK TO THE RFA IS PATIENT AND INTACT. PATIENT INDEPENDENT WITH BED MOBILITY BUT AMBULATES WITH ASSISTANCE AND ASSISTIVE DEVICE. SAFETY PRECAUTIONS OBSERVED AND MAINTAINED. BED IN LOWEST AND LOCKED POSITION, CALL LIGHT PLACE WITHIN EASY REACH, WILL CONTINUE TO MONITOR PATIENT.
[2018-04-19 22:59] VITALS: BP 128/66
--- NOTE | 2018-04-20 01:36 | NUR ---
RN NOTES PATIENT'S RIGHT SOLANGE 2G IV LINE IS LEAKING AND HAD BEEN REMOVED. PATIENT IS REFUSING NEW IV LINE FOR NOW. ALL RISKS AND BENEFITS ARE EXPLAINED. WILL OFFER NEW IV LINE START LATER AGAIN.
[2018-04-20] MEDS: IPRATROPIUM NEB FS 0.5 MG/2.5 ML AMPUL.NEB NEB SCH ×6 (02:54→23:17)
[2018-04-20 04:00] VITALS: BP 120/69
[2018-04-20 06:42] LABS: BASOPHILS # (AUTO) 0.1 /CMM (0.0-0.2); EOSINOPHILS % (AUTO) 2.6 % (0.0-6.0); HEMATOCRIT 34 % (39-51); HEMOGLOBIN 11.1 g/dL (13.5-17.5); LYMPHOCYTES # (AUTO) 1.4 /CMM (0.8-4.8); LYMPHOCYTES % (AUTO) 16.4 % (20.0-44.0); MEAN CORPUSCULAR HGB CONC 33 g/dl (31.0-36.0); MEAN CORPUSCULAR VOLUME 92 fL (80-96); NEUTROPHILS # (AUTO) 5.6 /CMM (1.8-8.9); PLATELET COUNT (AUTO) 210 /CMM (150-450); RED BLOOD CELL COUNT(AUTO) 3.64 MIL/uL (4.5-6.0); WHITE BLOOD COUNT (AUTO) 8.3 K/uL (4.3-11.0)
[2018-04-20 07:00] LABS: CALCIUM, SERUM 8.7 mg/dL (8.5-10.1); CARBON DIOXIDE 21 mmol/L (21-32); CHLORIDE 106 mmol/L (98-107); CREATININE 5.2 mg/dL (0.6-1.3); GLUCOSE 92 mg/dL (74-106); MAGNESIUM 2.2 mg/dL (1.8-2.4); PHOSPHORUS 5.8 mg/dL (2.5-4.9); POTASSIUM 5.2 mmol/L (3.5-5.1); SODIUM SERUM 139 mmol/L (136-145); UREA NITROGEN, BLOOD 65 mg/dL (7-18)
--- NOTE | 2018-04-20 07:10 | NUR ---
MS RN OPENING NOTE RECEIVED PT IN BED AWAKE AND ALERT. BREATHING EVENLY. NO SOB . NO DISTRESS NOTED. SKIN WARM AND DRY. NO C/O PAIN OR DISCOMFORT. NEEDS ATTENDED. BED LOW LOCKED. CALL LIGHT WITHIN REACH, SRX3.REFUSING IV INSERTION AND DIALYSIS CATH INSERTION .EXPLAINED RISK AND BENEFIT.STILL REFUSING.WILL CONT TO MONITOR,.
[2018-04-20 08:00] VITALS: BP 134/57
[2018-04-20] MEDS: LEVOTHYROXINE SODIUM 75 MCG TABLET PO SCH (08:13)
[2018-04-20] MEDS: DILTIAZEM HCL CD 240 MG PO SCH (09:35)
--- NOTE | 2018-04-20 12:00 | NUR ---
MS RN NOTE SEEN BY ,UPDATED ABOUT PATIENT LABS,REFUSING HD CATHETER INSERTION.WILL CONTINUE TO MONITOR.
[2018-04-20 16:00] VITALS: BP 154/81
[2018-04-20] MEDS: HYDROCODONE/APAP 5/325MG 1 EACH TABLET PO PRN (16:57)
--- NOTE | 2018-04-20 18:00 | NUR ---
MS RN NOTE PATIENT AGREED TO DIALYSIS CATH INSERTION,SIGNED CONSENT WITH HELP OF NURSING TECH.FAMILY WAS AT BEDSIDE.HD CATH INSERTION DONE BY .X RAY TAKEN AND CONFIRMED THE PLACEMENT. MADE AWARE ABOUT CATHETER PLACEMENT. TOLD THAT WILL BE HAVING DIALYSIS TODAY.
--- NOTE | 2018-04-20 19:46 | NUR ---
MS RN CLOSING NOTE PT IN BED AWAKE AND ALERT. BREATHING EVENLY. NO SOB . NO DISTRESS NOTED. SKIN WARM AND DRY. NO C/O PAIN OR DISCOMFORT. NEEDS ATTENDED. BED LOW LOCKED. CALL LIGHT WITHIN REACH, SRX3.REFUSING IV INSERTION .EXPLAINED RISK AND BENEFIT.STILL REFUSING.WILL CONT TO MONITOR,.
[2018-04-20 20:00] VITALS: BP 154/75
[2018-04-20 20:42] VITALS: BP 154/75
[2018-04-21] MEDS: IPRATROPIUM NEB FS 0.5 MG/2.5 ML AMPUL.NEB NEB SCH ×6 (02:42→23:43)
[2018-04-21 04:00] VITALS: BP 134/71
[2018-04-21 04:44] VITALS: BP 134/71
--- NOTE | 2018-04-21 07:36 | NUR ---
ms rn received on bed, awake,alert,oriented x 4,le[place]ese speaking only, not in any form of distress, respirations even and unlabored,no sob noted, lungs are diminished,abdomen soft,positive bowel sounds,denies pain at this time,will monitor patient's condition.
[2018-04-21 08:00] VITALS: BP 144/84
--- NOTE | 2018-04-21 09:00 | NUR ---
ms rn meds held at this time, patient will have hd today.
[2018-04-21 12:00] VITALS: BP 143/73
[2018-04-21] MEDS: LEVOTHYROXINE SODIUM 75 MCG TABLET PO SCH (12:09)
[2018-04-21] MEDS: DILTIAZEM HCL CD 240 MG PO SCH (12:10)
--- NOTE | 2018-04-21 14:00 | NUR ---
ms bethany hd done w/ 1500ml out, tolerated well.
[2018-04-21 16:00] VITALS: BP 124/76
[2018-04-21] MEDS: ONDANSETRON HCL/PF 4 MG/2 ML VIAL IVP PRN (16:04)
[2018-04-21] MEDS: ACETAMINOPHEN 325 MG TABLET PO PRN (16:05)
--- NOTE | 2018-04-21 17:00 | NUR ---
ms rn on bed, family at bedside.
--- NOTE | 2018-04-21 19:00 | NUR ---
ms rn on bed, all needs attended.
[2018-04-21 20:00] VITALS: BP 125/78
--- NOTE | 2018-04-21 21:40 | NUR ---
rn notes patient just finished hemodialysis with 1 L output
[2018-04-22] MEDS: IPRATROPIUM NEB FS 0.5 MG/2.5 ML AMPUL.NEB NEB SCH ×6 (03:10→23:24)
[2018-04-22 04:00] VITALS: BP_SYST 129; BP_DIAS 49; BP_DIAS 79
--- NOTE | 2018-04-22 07:10 | NUR ---
MS RN OPENING NOTES RECEIVED PT ON BED.ALERT/ORIENTED X4.ON 2L O2 VIA NC CONTINUOUSLY,SATURATING WELL.CAN AMBULATE WITH WALKER WITH MINIMAL ASSISTANCE.IV LINE IS ON LEFT FA G20,SITE SI CLEAN,DRY AND IONTACT.NO INFILTRATION NOTED.SAFETY IS MAINTAINED AT ALL TIMES.BED IS IN LOW POSITION AND LOCKED.CALL LIGHT IS WITHIN REACH.WILL CONTINUE TO MONITOR THE PT CLOSELY.
[2018-04-22] MEDS: ACETAMINOPHEN 325 MG TABLET PO PRN (07:53)
[2018-04-22 08:00] VITALS: BP 126/80
[2018-04-22] MEDS: LEVOTHYROXINE SODIUM 75 MCG TABLET PO SCH (08:17)
[2018-04-22] MEDS: DILTIAZEM HCL CD 240 MG PO SCH (08:17)
[2018-04-22 16:00] VITALS: BP 130/79
--- NOTE | 2018-04-22 18:48 | NUR ---
MS RN CLOSING NOTES PT IS ON BED.VITAL SIGNS ARE CHECKED AND RECORDED.NO COMPLICATIONS NOTED.ENDORSED TO COMMERCIAL LOAN ANALYST RN FOR CONTINUITY OF CARE.
[2018-04-22] MEDS: ONDANSETRON HCL/PF 4 MG/2 ML VIAL IVP PRN ×2 (20:14→21:12)
[2018-04-22 21:19] VITALS: BP 121/70
[2018-04-23 00:10] VITALS: BP 121/70
[2018-04-23] MEDS: IPRATROPIUM NEB FS 0.5 MG/2.5 ML AMPUL.NEB NEB SCH ×6 (03:04→23:35)
[2018-04-23] MEDS: MAGNESIUM HYDROXIDE 30 ML UDC PO PRN (05:45)
[2018-04-23 06:18] VITALS: BP 129/66
--- NOTE | 2018-04-23 07:28 | NUR ---
MS RN OPENING NOTES RECEIVED PATIENT IN STABLE CONDITION. IN NO APPARENT DISTRESS. BEDSIDE RAILS ARE UPX2. BED IS LOCKED AND LOWERED. CALL LIGHT IS WITHIN REACH. IV LINE IS INTACT AND PATENT. WILL CONTINUE TO MONITOR PATIENT.
[2018-04-23 08:00] VITALS: BP 149/68
[2018-04-23] MEDS: DILTIAZEM HCL CD 240 MG PO SCH (08:22)
[2018-04-23] MEDS: LEVOTHYROXINE SODIUM 75 MCG TABLET PO SCH (08:22)
[2018-04-23] MEDS: ONDANSETRON HCL/PF 4 MG/2 ML VIAL IVP PRN ×2 (08:23→14:47)
--- NOTE | 2018-04-23 10:00 | NUR ---
RN NOTES RECEIVED PATIENT IN BED A/O X4 WITH BREATHING NORMAL, EVEN AND UNLABORED. NO SOB NOTED. NO ACUTE DISTRESS NOTED. IV RFA IS PATENT AND INTACT, NO INFILTRATION NOTED. HD CATH IS PATENT AND INTACT. KEPT CLEAN, DRY AND COMFORTABLE. ALL NEEDS ATTENDED. SAFETY MEASURE OBSERVED. CALL LIGHT WITH IN REACH. WILL CONT TO MONITOR.
[2018-04-23] MEDS: ACETAMINOPHEN 325 MG TABLET PO PRN (14:44)
[2018-04-23] MEDS: MAG HYDROX/AL HYDROX/SIMETH 30 ML UDC PO PRN (14:44)
[2018-04-23 16:00] VITALS: BP 126/84
--- NOTE | 2018-04-23 18:55 | NUR ---
RN NOTES PATIENT ENDORSED TO NEXT SHIFT IN STABLE CONDITION FOR CONTINUITY OF CARE. NO SIGNIFICANT CHANGES NOTED. KEPT CLEAN, DRY AND COMFORTABLE. ALL NEEDS ATTENDED. SAFETY MEASURE OBSERVED. CALL LIGHT WITH IN REACH. WILL CONT TO MONITOR.
[2018-04-23 20:00] VITALS: BP 131/84
[2018-04-23 20:56] VITALS: BP 131/69
[2018-04-24] MEDS: IPRATROPIUM NEB FS 0.5 MG/2.5 ML AMPUL.NEB NEB SCH ×6 (03:30→23:10)
[2018-04-24 04:00] VITALS: BP 155/72
--- NOTE | 2018-04-24 07:10 | NUR ---
MS RN OPENING NOTES RECEIVED PT ON BED.ALERT/ORIENTED X4.ON O2 2L VIA NC CONTINUOUSLY.NO SOB AND ACUTE DISTRESS NOTED.TOLERATING WELL.CAN AMBULATE WITH WALKER WITH MINIMAL ASSISTANCE.IV LINE IS ON RIGHT FA G20,HD CATH IS IN RIGHT IJ.SITE IS CLEAN,DRY AND INTACT.NO INFILTRATION NOTED.SAFETY IS MAINTAINED MARY ANNE ALL TIMES.BED IS IN LOW POSITION AND LOCKED.CALL LIGHT IS WITHIN REACH.CONTINUE TO MONITOR THE PT CLOSELY.
[2018-04-24 08:00] VITALS: BP 130/76
[2018-04-24] MEDS: LEVOTHYROXINE SODIUM 75 MCG TABLET PO SCH (08:18)
[2018-04-24] MEDS: DILTIAZEM HCL CD 240 MG PO SCH (08:19)
[2018-04-24 09:12] LABS: *TACROLIMUS (FK506) None Detected ng/mL (2.0-20.0)
[2018-04-24 09:52] LABS: BASOPHILS # (AUTO) 0.2 /CMM (0.0-0.2); BASOPHILS % (AUTO) 4.3 % (0.0-2.0); EOSINOPHILS % (AUTO) 5.1 % (0.0-6.0); HEMATOCRIT 31 % (39-51); HEMOGLOBIN 10.3 g/dL (13.5-17.5); LYMPHOCYTES # (AUTO) 1.3 /CMM (0.8-4.8); LYMPHOCYTES % (AUTO) 31.3 % (20.0-44.0); MEAN CORPUSCULAR HGB CONC 34 g/dl (31.0-36.0); MEAN CORPUSCULAR VOLUME 91 fL (80-96); MONOCYTES # (AUTO) 0.2 /CMM (0.1-1.30); NEUTROPHILS # (AUTO) 2.2 /CMM (1.8-8.9); NEUTROPHILS % (AUTO) 54.3 % (43.0-81.0); PLATELET COUNT (AUTO) 195 /CMM (150-450); RED BLOOD CELL COUNT(AUTO) 3.38 MIL/uL (4.5-6.0); WHITE BLOOD COUNT (AUTO) 4.1 K/uL (4.3-11.0)
[2018-04-24 10:08] LABS: ALANINE AMINOTRANSFERASE 26 U/L (12-78); ALBUMIN 2.7 g/dL (3.4-5.0); ALKALINE PHOSPHATASE 46 U/L (46-116); ASPARTATE AMINOTRANSFERASE 24 U/L (15-37); BILIRUBIN,TOTAL 0.3 mg/dL (0.2-1.0); CALCIUM, SERUM 8.5 mg/dL (8.5-10.1); CARBON DIOXIDE 29 mmol/L (21-32); CHLORIDE 102 mmol/L (98-107); CREATININE 4.2 mg/dL (0.6-1.3); GLUCOSE 136 mg/dL (74-106); MAGNESIUM 2.3 mg/dL (1.8-2.4); PHOSPHORUS 3.3 mg/dL (2.5-4.9); POTASSIUM 3.7 mmol/L (3.5-5.1); SODIUM SERUM 140 mmol/L (136-145); TOTAL PROTEIN, SERUM 6.6 g/dL (6.4-8.2); UREA NITROGEN, BLOOD 41 mg/dL (7-18)
--- NOTE | 2018-04-24 11:45 | NUR ---
MS RN NOTES HD HAS DONE .PT TOLERATING WELL.VITAL SIGNS CHECKED AND RECORDED.BP-120/66,P-66,T-98 R-20.1700 CC FLUIDS OUT.NO COMPLICATIONS NOTED.
[2018-04-24] MEDS: ACETAMINOPHEN 325 MG TABLET PO PRN (14:02)
[2018-04-24 16:00] VITALS: BP 137/78
[2018-04-24] MEDS: ONDANSETRON HCL/PF 4 MG/2 ML VIAL IVP PRN (17:07)
--- NOTE | 2018-04-24 19:00 | NUR ---
MS RN CLOSING NOTES PT IS ON BED.TOLERATING WELL.NO SOB AND ACUTE DISTRESS NOTED.HD HAS DONE.NO COMPLICATIONS NOTED.ENDORSED TO SHOW WORKER RN FOR CONTINUITY OF CARE.
[2018-04-24 20:00] VITALS: BP 144/82
--- NOTE | 2018-04-24 20:00 | NUR ---
MS MARQUES NOTE RECEIVED PT IN BED AWAKE. A/O X 4. NO SOB, NO DISTRESS OR DISCOMFORT NOTED. ON 2L VIA N/C O2 SAT 96%. DENIES PAIN . RFA #20 AND RIJ HD INTACT AND PATENT. SIDE RAILS UP X 2 AND CALL LIGHT WITHIN REACH. DTR AT BED SIDE. VSS. CONTINUE TO MONITOR HIM. Addendum: 04/24/18 at 2058 by BRENDA LEON RN DTR AT BED SIDE WRITTEN IN ERROR.
[2018-04-25] VITALS (7 sets, daily range): BP systolic 132–166; BP diastolic 72–101
[2018-04-25] MEDS: IPRATROPIUM NEB FS 0.5 MG/2.5 ML AMPUL.NEB NEB SCH ×5 (03:21→19:53)
--- NOTE | 2018-04-25 06:31 | NUR ---
MS RN NOTE PT IN BED ASLEEP, AROUSABLE. NO DISTRESS OR DISCOMFORT NOTED. DENIES PAIN. ALL NEEDS ATTENDED. SIDE RAILS UP X 2 AND CALL LIGHT WITH IN REACH. WILL ENDORSE TO DAY SHIFT NURSE FOR CONTINUE TO CARE.
[2018-04-25] MEDS: DILTIAZEM HCL CD 240 MG PO SCH (09:13)
[2018-04-25] MEDS: LEVOTHYROXINE SODIUM 75 MCG TABLET PO SCH (09:14)
[2018-04-25] MEDS: ONDANSETRON HCL/PF 4 MG/2 ML VIAL IVP PRN ×2 (14:04→16:01)
[2018-04-25] MEDS: hydrALAZINE HCL 25 MG TABLET PO PRN (20:09)
[2018-04-25] MEDS: HYDROCODONE/APAP 5/325MG 1 EACH TABLET PO PRN (20:09)
--- NOTE | 2018-04-26 00:21 | NUR ---
RN NOTES GAVE REPORT AND PATIENT TO MARQUES [place]
[2018-04-26] MEDS: IPRATROPIUM NEB FS 0.5 MG/2.5 ML AMPUL.NEB NEB SCH ×6 (00:29→19:30)
--- NOTE | 2018-04-26 01:09 | NUR ---
RN NOTES Received report from MARQUES Morin for continuity of care of this patient. Patient on bed with breathing treatment on going. No SOB/respiratory distress noted. Patient denies discomfort at this time. Call light with easy reach.Will continue to monitor accordingly.
[2018-04-26 04:00] VITALS: BP 138/93
--- NOTE | 2018-04-26 06:49 | NUR ---
MS RN CLOSING NOTES Patient asleep on bed on supine position. With patent peripheral IV line RFA G#20, SL. For HD this AM. Patient denies discomfort at this time. On NC @ 1LPM, no SOB/respiratory distress noted. All needs attended. No new unusualities noted. Kept bed low and locked. Call light within easy reach. Endorsed to the next shift.
[2018-04-26 08:00] VITALS: BP 148/93
[2018-04-26] MEDS: LEVOTHYROXINE SODIUM 75 MCG TABLET PO SCH (09:09)
[2018-04-26] MEDS: DILTIAZEM HCL CD 240 MG PO SCH (09:09)
[2018-04-26] MEDS: HYDROCODONE/APAP 5/325MG 1 EACH TABLET PO PRN (09:10)
[2018-04-26] MEDS: ACETAMINOPHEN 325 MG TABLET PO PRN (09:14)
--- NOTE | 2018-04-26 10:55 | NUR ---
Patient family member Robyn says the patient had a wallet. She is aware staff does not have record of wallet of patient. Belongings include medicine from pharmacy in a plastic seal bag.
[2018-04-26 16:00] VITALS: BP 106/57
[2018-04-26] MEDS: MAGNESIUM HYDROXIDE 30 ML UDC PO PRN (17:32)
--- NOTE | 2018-04-26 18:53 | NUR ---
Handoff report to nurse Cornelia at [facility]. Will endorse to night nurse for transfer continuity.
--- NOTE | 2018-04-26 19:40 | NUR ---
RN NOTES Received Patient awake in bed on supine position. patient is A?A?Ox4. With patent peripheral IV line RFA G#20, SL. and new hd catheter on right IJ. Patient denies discomfort and pain at this time. On NC @ 1LPM, no SOB/respiratory distress noted. All needs attended. Bed low and locked. Call light within easy reach. waiting ambulance to transport patient to [facility].
[2018-04-26] MEDS: hydrALAZINE HCL 25 MG TABLET PO PRN (19:53)
[2018-04-26 20:00] VITALS: BP 140/92
--- NOTE | 2018-04-26 20:25 | NUR ---
RN NOTES AMBULANCE ARRIVED , PATIENT IS A/A/OX4, NO PAIN AND DISCOMFORT AT THIS TIME. V/ S ARE WNL, B/P- 140/92, HR-89,SPO2-97%, RR-17. WRIST BAND AND IV LINE IS REMOVED, ALL PATIENT'S BELONGINGS ARE GOING WITH THE PATIENT. ALL NEEDS ARE ATTENDED AND PATIENT IS LEAVING WITH THE AMBULANCE.
== END 2018-04-26 20:25 | DRG 291 ==
LOC: ER 06:42 → ICU 08:51 → TELE-TD 04-13 18:25 → MEDSG1 04-15 08:50 → TELE1 04-18 08:34 → MEDSG1 04-18 09:27
PROVIDERS: ADMIT Internal Medicine; ATTEND Nurse Practitioner Acute Care
PROC: 5A09457 Assistance with Respiratory Ventilation, 24-96 Consecutive Hours, Continuous Positive Airway Pressure (ICD-10-PCS; principal; 2018-04-10)
PROC: 05HM33Z Insertion of Infusion Device into Right Internal Jugular Vein, Percutaneous Approach (ICD-10-PCS; 2018-04-20)
PROC: B543ZZA Ultrasonography of Right Jugular Veins, Guidance (ICD-10-PCS; 2018-04-20)
DX: I13.2 Hypertensive heart and chronic kidney disease with heart failure and with stage 5 chronic kidney disease, or end stage renal disease (principal); J96.01 Acute respiratory failure with hypoxia; N17.0 Acute kidney failure with tubular necrosis; G93.41 Metabolic encephalopathy; I50.33 Acute on chronic diastolic (congestive) heart failure; N18.6 End stage renal disease; E87.1 Hypo-osmolality and hyponatremia; E44.0 Moderate protein-calorie malnutrition; J44.1 Chronic obstructive pulmonary disease with (acute) exacerbation; I48.91 Unspecified atrial fibrillation; Z79.899 Other long term (current) drug therapy; Z79.51 Long term (current) use of inhaled steroids; D63.8 Anemia in other chronic diseases classified elsewhere; E66.01 Morbid (severe) obesity due to excess calories; Z68.26 Body mass index [BMI] 26.0-26.9, adult; D89.9 Disorder involving the immune mechanism, unspecified; R73.9 Hyperglycemia, unspecified; E03.9 Hypothyroidism, unspecified; G47.33 Obstructive sleep apnea (adult) (pediatric); I70.0 Atherosclerosis of aorta; Z87.891 Personal history of nicotine dependence; D50.9 Iron deficiency anemia, unspecified
CPT/HCPCS: 36415; 36600; 71045-TC; 73130-TC; 76770-TC; 80048-TC; 80053-TC; 80061-TC; 80076-TC; 80197; 81000-TC; 82272-TC; 82728-TC; 82803-TC; 83540-TC; 83735-TC; 83880; 84100-TC; 84439-TC; 84443-TC; 84484-TC; 85025-TC; 85730-TC; 86704; 86705; 86706; 86803; 87081-TC; 87340; 90935-TC; 93307-TC; 93930-TC; 93970-TC; 93971-TC; 94660; 94760-TC; A4216; A4606; C1750; G0378; J1644; J1940; J2405; J2916; J2930; J3490; J7030; J7042; J7050; J7060; Z7610

== ENCOUNTER 2020-08-17 08:47 | Inpatient (IN) | payer OTHER ==
[~2020-08-17] VITALS: Ht 162.6 cm; Wt 84.4 kg
[~2020-08-17 08:47] MED LIST: ALBU2.5V38 NEB; ALLO300T2 PO; AMLO-213 PO; CARV3.122 PO; FURO40TA5 PO; HYDR100T27 PO; IPRA4AER IH; LEVO150T8 PO; LOSA25TA27 PO; OMEP20CA15 PO; PRED10TA PO; SODI650T PO; TACR0.5C4 PO
--- NOTE | 2020-08-17 08:57 | NUR ---
SEEN AND EXAMINED BY .
[2020-08-17] MEDS ORDERED: IV NS 0.9% 1,000 ML BAG IV ONE (09:00)
--- NOTE | 2020-08-17 09:00 | NUR ---
Utilized import specialist Shelby to interpret in [place] Islander Pt states +CP/Sob started this am. EKG AF rate 121-124 Dr Mcfarland aware
[2020-08-17 09:52] LABS: BASOPHILS # (AUTO) 0.1 /CMM (0.0-0.2); BASOPHILS % (AUTO) 0.8 % (0.0-2.0); EOSINOPHILS % (AUTO) 3.2 % (0.0-6.0); HEMATOCRIT 29 % (39-51); HEMOGLOBIN 9.6 g/dL (13.5-17.5); LYMPHOCYTES # (AUTO) 1.4 /CMM (0.8-4.8); LYMPHOCYTES % (AUTO) 17.1 % (20.0-44.0); MEAN CORPUSCULAR HGB CONC 34 g/dl (31.0-36.0); MEAN CORPUSCULAR VOLUME 101 fL (80-96); MONOCYTES # (AUTO) 0.6 /CMM (0.1-1.30); MONOCYTES % (AUTO) 7.4 % (2.0-12.0); NEUTROPHILS # (AUTO) 5.7 /CMM (1.8-8.9); NEUTROPHILS % (AUTO) 71.5 % (43.0-81.0); PLATELET COUNT (AUTO) 159 /CMM (150-450); RED BLOOD CELL COUNT(AUTO) 2.82 MIL/uL (4.5-6.0)
--- NOTE | 2020-08-17 10:08 | NUR ---
US tech here at bedside. Pt aware of plan of care Reiterated by Tim Dolphin Researcher Shelby . Cooperative and Compliant
[2020-08-17] MEDS ORDERED: GABA-532 PO (10:12)
[2020-08-17] MEDS ORDERED: ATOR20TA PO (10:12)
[2020-08-17] MEDS ORDERED: DOCU-342 PO (10:12)
[2020-08-17] MEDS ORDERED: SEVE800T28 PO (10:12)
[2020-08-17] MEDS ORDERED: LEVO125T8 PO (10:12)
[2020-08-17] MEDS ORDERED: APIX2.5T PO (10:12)
[2020-08-17] MEDS ORDERED: CALC667C6 PO (10:12)
[2020-08-17 10:16] LABS: CALCIUM, SERUM 8.8 mg/dL (8.5-10.1); CARBON DIOXIDE 27 mmol/L (21-32); CHLORIDE 105 mmol/L (98-107); GLUCOSE 117 mg/dL (74-106); POTASSIUM 4.6 mmol/L (3.5-5.1); SODIUM SERUM 144 mmol/L (136-145); UREA NITROGEN, BLOOD 78 mg/dL (7-18)
[2020-08-17 10:20] LABS: ALANINE AMINOTRANSFERASE 24 U/L (12-78); ALBUMIN 3.4 g/dL (3.4-5.0); ALKALINE PHOSPHATASE 59 U/L (46-116); ASPARTATE AMINOTRANSFERASE 15 U/L (15-37); BILIRUBIN,DIRECT 0.1 mg/dL (0.0-0.2); BILIRUBIN,TOTAL 0.5 mg/dL (0.2-1.0); TOTAL PROTEIN, SERUM 7.7 g/dL (6.4-8.2)
[2020-08-17 10:27] LABS: CREATININE 8.6 mg/dL (0.6-1.3)
[2020-08-17] MEDS ORDERED: DILTIAZEM HCL 25 MG IV IV ONE (10:30)
[2020-08-17] MEDS ORDERED: DILTIAZEM HCL 25 MG IV ONE (10:31)
[2020-08-17] MEDS ORDERED: MORPHINE SULFATE INJ 2 MG/ML DISP.SYRIN IV ONE (11:00)
--- NOTE | 2020-08-17 11:30 | NUR ---
Still c/o pain on Left Shoulder -MD aware w/orders for meds. Pt updated w/plan of care await Admission/bed assignment
[2020-08-17] MEDS ORDERED: MORPHINE SULFATE INJ 4 MG/ML DISP.SYRIN ONE (11:48)
--- NOTE | 2020-08-17 11:58 | NUR ---
GOT BED 111
[2020-08-17] MEDS ORDERED: ALBUTEROL FS 2.5 MG/3 ML VIAL.NEB NEB PRN (12:00)
--- NOTE | 2020-08-17 12:30 | NUR ---
Awaiting to give report to RACHANA Apparently Nurse unavailable to give report at this time
--- NOTE | 2020-08-17 13:31 | NUR ---
report given Soon charge nurse
[2020-08-17 13:41] LABS: THYROID STIMULATING HORMONE 4.915 uIU/mL (0.358-3.74)
--- NOTE | 2020-08-17 13:56 | NUR ---
transported to room NO obvious distress, no acute changes VSS
[2020-08-17] MEDS: SEVELAMER CARBONATE 800 MG TABLET PO SCH ×2 (15:07→17:51)
[2020-08-17] MEDS: APIXABAN 2.5 MG TABLET PO SCH ×2 (15:07→22:03)
[2020-08-17] MEDS: CALCIUM ACETATE 667 MG TABLET PO SCH ×2 (15:08→17:00)
[2020-08-17 15:26] LABS: MAGNESIUM 3.3 mg/dL (1.8-2.4); PHOSPHORUS 6.5 mg/dL (2.5-4.9)
[2020-08-17 16:00] VITALS: BP 141/100
--- NOTE | 2020-08-17 16:00 | NUR ---
RN note: Admit Pt from ER alert awake oriented X 3. On 2 LPM O2 Via NC. No breathing distress noted at rest. C/O left arm pain 3/10, refused to take pain relieve med at this time. Room orientation provided. Safety measures observed. A-Fib 100s on tele monitor. Continue to monitor closely. Call light within reach.
[2020-08-17] MEDS ORDERED: ACETAMINOPHEN 325 MG TABLET PO PRN (16:30)
[2020-08-17] MEDS ORDERED: Z GUARD REMEDY 2 OZ OINT TP PRN (16:30)
[2020-08-17] MEDS ORDERED: ZOLPIDEM TARTRATE 5 MG TABLET PO PRN (16:30)
[2020-08-17] MEDS ORDERED: ONDANSETRON HCL/PF 4 MG/2 ML VIAL IVP PRN (16:30)
[2020-08-17] MEDS ORDERED: DEXTROSE 50%-WATER 50 ML DISP.SYRIN IV PRN (16:30)
[2020-08-17 16:48] VITALS: BP 134/92
[2020-08-17] MEDS ORDERED: IPRATROPIUM NEB FS 0.5 MG/2.5 ML AMPUL.NEB NEB PRN (17:00)
[2020-08-17] MEDS ORDERED: methylPREDNISolone SOD SUCC 40 MG/ML VIAL IV ONE (17:00)
[2020-08-17] MEDS: CYANOCOBALAMIN 500 MCG TABLET PO SCH (17:00)
[2020-08-17] MEDS: FOLIC ACID 1 MG TABLET PO SCH (17:00)
[2020-08-17] MEDS: DOCUSATE SODIUM 100 MG CAPSULE PO SCH (17:00)
[2020-08-17] MEDS: HYDROCODONE/APAP 5/325MG TABLET PO PRN ×2 (17:49→22:02)
[2020-08-17] MEDS: BLOOD SUGAR DIAGNOSTIC 1 EACH STRIP IN SCH ×2 (17:50→22:01)
[2020-08-17] MEDS: INSULIN REGULAR, HUMAN 100 UNIT/ML 3 ML VIAL SQ PRN ×2 (18:00→22:03)
--- NOTE | 2020-08-17 19:15 | NUR ---
RECEIVED PT ON BED AWAKE A/O X4 ABLE TO VERBALIZED NEEDS ON 2L O2 VIA NC TOLERATING WELL STILL COMPLAINING OF PAIN ON LEFT ARM CURRENTLY PAIN LEVEL IS 3 PER PT STILL TOLERATING AND WILL ASK PAIN MEDS IF HE NEEDS IT, TELE MONITOR READS AFIB CONTROLLED 100'S HAVE IV ON RAC# 20 PATENT AND FLUSHED BED ON LOWEST POSITION AND LOCKED SIDE RAILS UP X 2 CALL LIGHT WITHIN REACH WILL CONT TO MONITOR
[2020-08-17 20:00] VITALS: BP 141/72
[2020-08-17] MEDS: ATORVASTATIN 10 MG TABLET PO SCH (21:18)
[2020-08-18] VITALS: BP 138/72
[2020-08-18 04:00] VITALS: BP 141/71
[2020-08-18 06:41] LABS: BASOPHILS % (AUTO) 0.3 % (0.0-2.0); HEMATOCRIT 28 % (39-51); HEMOGLOBIN 9.2 g/dL (13.5-17.5); LYMPHOCYTES # (AUTO) 0.5 /CMM (0.8-4.8); LYMPHOCYTES % (AUTO) 9.7 % (20.0-44.0); MEAN CORPUSCULAR HGB CONC 33 g/dl (31.0-36.0); MEAN CORPUSCULAR VOLUME 103 fL (80-96); MONOCYTES # (AUTO) 0.2 /CMM (0.1-1.30); MONOCYTES % (AUTO) 3.1 % (2.0-12.0); NEUTROPHILS # (AUTO) 4.9 /CMM (1.8-8.9); NEUTROPHILS % (AUTO) 86.9 % (43.0-81.0); PLATELET COUNT (AUTO) 163 /CMM (150-450); RED BLOOD CELL COUNT(AUTO) 2.72 MIL/uL (4.5-6.0); WHITE BLOOD COUNT (AUTO) 5.6 K/uL (4.3-11.0)
--- NOTE | 2020-08-18 06:53 | NUR ---
PT ON BED AWAKE NO SIGN AND SYMPTOMS OF ANY DISTRESS NO PAIN COMPLAINED NOSIGNIFICANT CHANGES ON CONDITION NOTED ALL NEEDS ATTENDED, TELE MONITOR READS AFIB CONTROLLED 110S BED ON LOWEST POSITION AND LOCKED SIDE RAILS UP X2 CALL LIGHT WITHIN REACH WILL ENDORSED TO AM SHIFT NURSE
[2020-08-18 07:12] LABS: ALANINE AMINOTRANSFERASE 20 U/L (12-78); ALBUMIN 3.4 g/dL (3.4-5.0); ALKALINE PHOSPHATASE 55 U/L (46-116); ASPARTATE AMINOTRANSFERASE 14 U/L (15-37); BILIRUBIN,TOTAL 0.4 mg/dL (0.2-1.0); CALCIUM, SERUM 9.4 mg/dL (8.5-10.1); CARBON DIOXIDE 21 mmol/L (21-32); CHLORIDE 103 mmol/L (98-107); GLUCOSE 158 mg/dL (74-106); MAGNESIUM 3.3 mg/dL (1.8-2.4); PHOSPHORUS 5.6 mg/dL (2.5-4.9); POTASSIUM 5.7 mmol/L (3.5-5.1); SODIUM SERUM 137 mmol/L (136-145); TOTAL PROTEIN, SERUM 7.9 g/dL (6.4-8.2)
[2020-08-18] MEDS: SEVELAMER CARBONATE 800 MG TABLET PO SCH ×3 (07:27→17:34)
[2020-08-18] MEDS: PANTOPRAZOLE 40 MG TABLET.DR PO SCH (07:27)
--- NOTE | 2020-08-18 07:30 | NUR ---
MEDICAL REVIEWER NOTES RECEIVED PT ON BED, AAOX4. RESPIRATION EVEN AND NON LABORED WITH NO ACUTE RESPIRATORY DISTRESS, TOLERATING OXYGEN AT 2LPM VIA N/C, SOB IN MINIMAL EXERTION SUCH LYING TO SITTING, REPOSITIONING, HOB ELEVATED PER PT COMFORT. ABD SOFT AND NON DISTENDED. DENIES PAIN AND DISCOMFORT. ON TELE MONITOR AFIB CONTROLLED. IV LINE AT RAC #20, PATENT IN FLUSHING. LEFT UPPER ARM AV FISTULA SHUNT +BRUIT AND THRILL. PATIENT CONCERN ATTENDED, BED IN LOW LOCKED POSITION, SRX2 UP FOR SAFETY. WILL CONTINUE TO MONITOR
[2020-08-18 07:36] LABS: CREATININE 8.6 mg/dL (0.6-1.3); UREA NITROGEN, BLOOD 89 mg/dL (7-18)
[2020-08-18] MEDS: BLOOD SUGAR DIAGNOSTIC 1 EACH STRIP IN SCH ×4 (07:47→22:08)
[2020-08-18] MEDS: INSULIN REGULAR, HUMAN 100 UNIT/ML 3 ML VIAL SQ PRN ×4 (07:52→23:13)
[2020-08-18 08:05] VITALS: BP 183/111
[2020-08-18] MEDS: APIXABAN 2.5 MG TABLET PO SCH ×2 (08:17→17:38)
[2020-08-18] MEDS: AMLODIPINE BESYLATE 10 MG TABLET PO SCH (08:19)
[2020-08-18] MEDS: CALCIUM ACETATE 667 MG TABLET PO SCH ×3 (08:19→17:34)
[2020-08-18] MEDS: CYANOCOBALAMIN 500 MCG TABLET PO SCH (08:19)
[2020-08-18] MEDS: DOCUSATE SODIUM 100 MG CAPSULE PO SCH ×2 (08:19→17:34)
[2020-08-18] MEDS: LEVOTHYROXINE SODIUM 125 MCG TABLET PO SCH (08:19)
[2020-08-18] MEDS: FOLIC ACID 1 MG TABLET PO SCH (08:19)
[2020-08-18 12:06] VITALS: BP 177/100
[2020-08-18] MEDS ORDERED: SOD FERRIC GLUC 125 MG in IV NS 0.9% 100 ML IV SCH (14:00)
[2020-08-18] MEDS ORDERED: IRON SUCROSE COMPLEX 200 MG in IV NS 0.9% 100 ML IV SCH (14:00)
[2020-08-18] MEDS: hydrALAZINE HCL 10 MG TABLET PO SCH ×2 (14:35→20:03)
[2020-08-18 16:04] VITALS: BP 177/115
--- NOTE | 2020-08-18 18:56 | NUR ---
WATER PUMP INSTALLER CLOSING NOTES PT AAOX4. HD TODAY WITH 2L OUT, LAST BP OF 156/82. ON O2 AT 2LPM VIA N/C ARNOL WELL,NO PRESENCE OF ACUTE RESPIRATORY DISTRESS, SOB PRESENT IN EXERTION, HOB KEPT ELEVATED. NO BM TODAY WITH URGE. DENIES PAIN AND DISCOMFORT. NO NEW SKIN BREAKDOWN. ON TELE MONITOR AFIB CONTROLLED. IV LINE AT RAC #20, PATENT IN FLUSHING. LEFT UPPER ARM AV FISTULA SHUNT +BRUIT AND THRILL. ALL CONCERNS ATTENDED, ENDORSED CARE TO NEXT SHIFT.
--- NOTE | 2020-08-18 19:40 | NUR ---
RN OPENING NOTE RECEIVED PATIENT RESTING IN CHAIR. AWAKE, ALERT AND ORIENTED X 4. ABLE TO MAKE NEEDS KNOWN. NO COMPLAINTS OF PAIN AT THIS TIME. CONTINUES ON 2L O2 VIA NC WITH NO SIGNS OR SYMPTOMS OF RESPIRATORY DISTRESS NOTED. IV ACCESS TO RIGHT AC #20G INTACT AND PATENT. RAMAN AV FISTULA INTACT WITH POSITIVE BRUIT AND THRILL. CALL LIGHT WITHIN REACH. ASPIRATION, FALL AND SAFETY PRECAUTIONS MAINTAINED. WILL CONTINUE TO MONITOR.
[2020-08-18 20:00] VITALS: BP 157/100
[2020-08-18] MEDS: HYDROCODONE/APAP 5/325MG TABLET PO PRN (20:02)
[2020-08-18] MEDS: ATORVASTATIN 10 MG TABLET PO SCH (22:08)
--- NOTE | 2020-08-18 22:30 | NUR ---
RN NOTE PATIENTS BLOOD GLUCOSE LEVEL IS 138 TONIGHT. ADMINISTERED SLIDING SCALE INSULIN WITH PATIENT RECEIVING 2 UNITS OF REGULAR INSULIN.
[2020-08-19] VITALS: BP 166/103
[2020-08-19 00:45] VITALS: BP 152/85
--- NOTE | 2020-08-19 01:04 | NUR ---
RN NOTE BP AT MIDNIGHT WAS 166/103 VIA AUTOMATIC CUFF. BLOOD PRESSURE RECHECK WITH MANUAL CUFF IS 152/85. NO COMPLAINTS OF HEADACHES, SOB OR DIZZINESS NOTED. WILL CONTINUE TO MONITOR.
[2020-08-19 04:00] VITALS: BP 157/76
[2020-08-19] MEDS: hydrALAZINE HCL 10 MG TABLET PO SCH (05:20)
[2020-08-19 06:07] LABS: CALCIUM, SERUM 8.3 mg/dL (8.5-10.1); CARBON DIOXIDE 27 mmol/L (21-32); CHLORIDE 100 mmol/L (98-107); CREATININE 5.8 mg/dL (0.6-1.3); GLUCOSE 92 mg/dL (74-106); MAGNESIUM 2.8 mg/dL (1.8-2.4); PHOSPHORUS 4.6 mg/dL (2.5-4.9); POTASSIUM 4.1 mmol/L (3.5-5.1); SODIUM SERUM 137 mmol/L (136-145); UREA NITROGEN, BLOOD 63 mg/dL (7-18)
[2020-08-19 06:19] LABS: BASOPHILS # (AUTO) 0.1 /CMM (0.0-0.2); BASOPHILS % (AUTO) 1.5 % (0.0-2.0); EOSINOPHILS % (AUTO) 4.4 % (0.0-6.0); HEMATOCRIT 28 % (39-51); HEMOGLOBIN 9.3 g/dL (13.5-17.5); LYMPHOCYTES # (AUTO) 1.6 /CMM (0.8-4.8); LYMPHOCYTES % (AUTO) 26.8 % (20.0-44.0); MEAN CORPUSCULAR HGB CONC 34 g/dl (31.0-36.0); MEAN CORPUSCULAR VOLUME 101 fL (80-96); MONOCYTES # (AUTO) 0.6 /CMM (0.1-1.30); MONOCYTES % (AUTO) 9.7 % (2.0-12.0); NEUTROPHILS # (AUTO) 3.4 /CMM (1.8-8.9); NEUTROPHILS % (AUTO) 57.6 % (43.0-81.0); PLATELET COUNT (AUTO) 173 /CMM (150-450); RED BLOOD CELL COUNT(AUTO) 2.73 MIL/uL (4.5-6.0); WHITE BLOOD COUNT (AUTO) 5.9 K/uL (4.3-11.0)
--- NOTE | 2020-08-19 06:25 | NUR ---
RN CLOSING NOTE PATIENT CURRENTLY SLEEPING IN BED. ALERT AND ORIENTED X 4. ABLE TO MAKE NEEDS KNOWN. NO COMPLAINTS OF PAIN AT THIS TIME. CONTINUES ON 2L O2 VIA NC WITH NO SIGNS OR SYMPTOMS OF RESPIRATORY DISTRESS NOTED. IV ACCESS TO RIGHT AC #20G INTACT AND PATENT. RAMAN AV FISTULA INTACT WITH POSITIVE BRUIT AND THRILL. CALL LIGHT WITHIN REACH. ASPIRATION, FALL AND SAFETY PRECAUTIONS MAINTAINED. WILL ENDORSE PLAN OF CARE TO ONCOMING SHIFT.
--- NOTE | 2020-08-19 07:30 | NUR ---
RN OPENING NOTE PATIENT SITTING IN CHAIR. A/Ox4 ON ROOM AIR WITH NO SIGNS FO RESP DISTRESS OR SOB, SPO2 98%, PT DENIES PAIN. IV ACCESS TO RIGHT AC #20 FLUSHED, INTACT AND PATENT WITH NO SIGNS OF INFECTION/INFILTRATION, RAMAN AV FISTULA INTACT WITH POSITIVE BRUIT AND THRILL. ALL SAFETY PRECAUTIONS IN PLACE. WILL CONTINUE TO MONITOR FOR ANALIA
[2020-08-19 08:00] VITALS: BP 141/86
[2020-08-19] MEDS: CALCIUM ACETATE 667 MG TABLET PO SCH (08:51)
[2020-08-19] MEDS: SEVELAMER CARBONATE 800 MG TABLET PO SCH (08:51)
[2020-08-19] MEDS: FOLIC ACID 1 MG TABLET PO SCH (08:52)
[2020-08-19] MEDS: AMLODIPINE BESYLATE 10 MG TABLET PO SCH (08:52)
[2020-08-19] MEDS: DOCUSATE SODIUM 100 MG CAPSULE PO SCH (08:52)
[2020-08-19] MEDS: LEVOTHYROXINE SODIUM 125 MCG TABLET PO SCH (08:52)
[2020-08-19] MEDS: PANTOPRAZOLE 40 MG TABLET.DR PO SCH (08:52)
[2020-08-19] MEDS: CYANOCOBALAMIN 500 MCG TABLET PO SCH (08:52)
[2020-08-19] MEDS: BLOOD SUGAR DIAGNOSTIC 1 EACH STRIP IN SCH ×2 (08:54→12:42)
[2020-08-19] MEDS: APIXABAN 2.5 MG TABLET PO SCH (08:54)
[2020-08-19] MEDS ORDERED: Folic Acid PO (09:15)
[2020-08-19] MEDS ORDERED: HYDR-4075 PO (09:15)
[2020-08-19 12:00] VITALS: BP 109/86
--- NOTE | 2020-08-19 13:45 | NUR ---
RN NOTE PT DISCHARGED IN STABLE CONDITION WITH NO S/S OF RESP DISTRESS OR SOB. PT AMBULATORY WITH STEADY GAIT. PT'S SON CAME TO CAMOUFLAGE SPECIALIST PT. ALL BELONGS AND DISCHARGE PAPERWORK WITH PT
== END 2020-08-19 13:54 | disposition home or self-care (01) | DRG 73 ==
LOC: ER 09:02 → TELE1 12:11
PROVIDERS: ADMIT Nurse Practitioner Acute Care; ATTEND Nurse Practitioner Acute Care
PROC: 5A1D70Z Performance of Urinary Filtration, Intermittent, Less than 6 Hours Per Day (ICD-10-PCS; principal; 2020-08-18)
DX: M54.12 Radiculopathy, cervical region (principal); N18.6 End stage renal disease; I13.2 Hypertensive heart and chronic kidney disease with heart failure and with stage 5 chronic kidney disease, or end stage renal disease; I48.91 Unspecified atrial fibrillation; Z99.2 Dependence on renal dialysis; J44.9 Chronic obstructive pulmonary disease, unspecified; E03.9 Hypothyroidism, unspecified; E11.22 Type 2 diabetes mellitus with diabetic chronic kidney disease; D53.1 Other megaloblastic anemias, not elsewhere classified; E87.5 Hyperkalemia; Z79.51 Long term (current) use of inhaled steroids; Z79.01 Long term (current) use of anticoagulants; Z79.890 Hormone replacement therapy; Z79.899 Other long term (current) drug therapy; Z87.891 Personal history of nicotine dependence; E83.39 Other disorders of phosphorus metabolism; E83.41 Hypermagnesemia; Z86.718 Personal history of other venous thrombosis and embolism; I50.9 Heart failure, unspecified; M19.019 Primary osteoarthritis, unspecified shoulder; M89.8X9 Other specified disorders of bone, unspecified site
CPT/HCPCS: 36415; 71045-TC; 73030-TC; 80048-TC; 80053-TC; 80061-TC; 80076-TC; 82728-TC; 82962-TC; 83540-TC; 83735-TC; 84100-TC; 84439-TC; 84443-TC; 84484-TC; 85025-TC; 85730-TC; 87081-TC; 90935-TC; 93307-TC; 93971-TC; G0378; J1756; J1815; J2270; J2920; J3490; J7030

== ENCOUNTER 2021-06-10 08:04 | Inpatient (IN) | payer OTHER ==
[~2021-06-10] VITALS: Ht 160 cm; Wt 88.5 kg
[~2021-06-10 08:04] MED LIST changes: -ALLO300T2 PO; +APIX2.5T PO; +ATOR20TA PO; +CALC667C6 PO; -CARV3.122 PO; +DOCU-342 PO; -FURO40TA5 PO; +Folic Acid PO; +GABA-532 PO; +HYDR-4075 PO; -HYDR100T27 PO; -IPRA4AER IH; +LEVO125T8 PO; -LEVO150T8 PO; -LOSA25TA27 PO; -PRED10TA PO; +SEVE800T28 PO; -SODI650T PO; -TACR0.5C4 PO
--- NOTE | 2021-06-10 08:25 | NUR ---
[id number] FROM HOME C/O EPIGASTRIC PAIN RADIATING DOWN XLAST NIGHT. DENIES NAUSEA AND FEVER. PAIN 9 IN PAIN SCALE. DID NOT TAKE ANYTHING FOR THE PAIN. PT CHANGED TO GOWN AND CONNECTED TO NASAL CANNULA 4L DUE TO SOB. AWAITNG MD DAWSON.
[2021-06-10] MEDS ORDERED: IV NS 0.9% 500 ML BAG IV ONE (08:30)
--- NOTE | 2021-06-10 08:40 | NUR ---
BLOOD COLLECTED AND SENT TO LAB
[2021-06-10 09:29] LABS: BASOPHILS # (AUTO) 0.1 K/uL (0.0-0.2); BASOPHILS % (AUTO) 0.8 % (0.0-2.0); EOSINOPHILS % (AUTO) 2.3 % (0.0-6.0); HEMATOCRIT 36 % (39-51); HEMOGLOBIN 11.9 g/dL (13.5-17.5); LYMPHOCYTES # (AUTO) 1.2 K/uL (0.8-4.8); LYMPHOCYTES % (AUTO) 15.6 % (20.0-44.0); MEAN CORPUSCULAR HGB CONC 33 g/dl (31.0-36.0); MEAN CORPUSCULAR VOLUME 99 fL (80-96); MONOCYTES # (AUTO) 0.8 K/uL (0.1-1.30); MONOCYTES % (AUTO) 10.7 % (2.0-12.0); NEUTROPHILS # (AUTO) 5.4 K/uL (1.8-8.9); NEUTROPHILS % (AUTO) 70.6 % (43.0-81.0); PLATELET COUNT (AUTO) 141 K/uL (150-450); RED BLOOD CELL COUNT(AUTO) 3.64 MIL/uL (4.5-6.0); WHITE BLOOD COUNT (AUTO) 7.6 K/uL (4.3-11.0)
[2021-06-10] MEDS ORDERED: MORPHINE SULFATE INJ 4 MG/ML DISP.SYRIN ONE (09:37)
--- NOTE | 2021-06-10 09:45 | NUR ---
PT TAKEN TO XRAY
[2021-06-10] MEDS ORDERED: MORPHINE SULFATE INJ 2 MG/ML DISP.SYRIN IV ONE (10:00)
--- NOTE | 2021-06-10 10:00 | NUR ---
PT RETURNED FROM XRAY
[2021-06-10 10:03] LABS: ALANINE AMINOTRANSFERASE 16 U/L (12-78); ALBUMIN 3.8 g/dL (3.4-5.0); ALKALINE PHOSPHATASE 95 U/L (46-116); ASPARTATE AMINOTRANSFERASE 17 U/L (15-37); BILIRUBIN,DIRECT 0.1 mg/dL (0.0-0.2); BILIRUBIN,TOTAL 0.4 mg/dL (0.2-1.0); GLUCOSE 129 mg/dL (74-106); LIPASE 75 U/L (73-393); TOTAL PROTEIN, SERUM 8.2 g/dL (6.4-8.2)
[2021-06-10 10:50] LABS: CARBON DIOXIDE 24 mmol/L (21-32); CHLORIDE 96 mmol/L (98-107); SODIUM SERUM 136 mmol/L (136-145)
[2021-06-10 11:05] LABS: UREA NITROGEN, BLOOD 89 mg/dL (7-18)
[2021-06-10 11:06] LABS: CREATININE 9.5 mg/dL (0.6-1.3); POTASSIUM 7.7 mmol/L (3.5-5.1)
--- NOTE | 2021-06-10 11:24 | NUR ---
COVID ANTIGEN COLLECTED AND SENT TO LAB
[2021-06-10] MEDS ORDERED: SODIUM BICARBONATE SYR 50 MEQ/50 ML DISP.SYRIN IV ONE (11:30)
[2021-06-10] MEDS ORDERED: INSULIN REGULAR, HUMAN 100 UNIT/ML 10 ML VIAL IV ONE (11:30)
[2021-06-10] MEDS ORDERED: DEXTROSE 50%-WATER 50 ML DISP.SYRIN IVP ONE (11:30)
[2021-06-10] MEDS ORDERED: Calcium Gluconate 1GM/10ML 4.65 MEQ in IV D5W 50 ML IV ONE (11:30)
--- NOTE | 2021-06-10 11:30 | NUR ---
PT AWAKE, LAYING IN BED, AAOX4, NEEDS MET
[2021-06-10] MEDS ORDERED: Calcium Gluconate 0.465 MEQ/ML VIAL IV ONE (11:31)
--- NOTE | 2021-06-10 11:31 | NUR ---
urine sample obtained and sent to lab
[2021-06-10] MEDS ORDERED: SODIUM BICARBONATE SYR 50 MEQ/50 ML DISP.SYRIN ONE (11:41)
[2021-06-10] MEDS ORDERED: DEXTROSE 50%-WATER 50 ML DISP.SYRIN ONE (11:41)
[2021-06-10] MEDS ORDERED: INSULIN REGULAR, HUMAN 100 UNIT/ML 10 ML VIAL ONE (11:42)
[2021-06-10] MEDS ORDERED: HYDR-3642 PO (11:43)
[2021-06-10] MEDS ORDERED: ASPI-1420 PO (11:43)
[2021-06-10] MEDS ORDERED: MIRT-90 PO (11:43)
[2021-06-10] MEDS ORDERED: AMIO200T5 PO (11:43)
[2021-06-10] MEDS ORDERED: NITR0.4T48 SL (11:43)
[2021-06-10] MEDS ORDERED: METO100T14 PO (11:43)
[2021-06-10] MEDS ORDERED: NORT10CA PO (11:43)
[2021-06-10] MEDS ORDERED: ALBU8.5H8 IH (11:43)
[2021-06-10] MEDS ORDERED: TRAZ-252 PO (11:43)
[2021-06-10] MEDS ORDERED: SENN-261 PO (11:43)
[2021-06-10] MEDS ORDERED: UMEC62.5 IH (11:43)
[2021-06-10] MEDS ORDERED: LORA10TA7 PO (11:43)
[2021-06-10] MEDS ORDERED: PANT40TA49 PO (11:43)
[2021-06-10] MEDS ORDERED: HYDR-4075 PO (11:45)
[2021-06-10] MEDS ORDERED: CLON1PAT13 TP (11:45)
--- NOTE | 2021-06-10 12:13 | NUR ---
BS 101
[2021-06-10] MEDS ORDERED: ACETAMINOPHEN 325 MG TABLET PO PRN (12:30)
[2021-06-10] MEDS ORDERED: SENNOSIDES 8.6 MG TABLET PO PRN (12:30)
[2021-06-10] MEDS ORDERED: Z GUARD REMEDY 4 OZ OINT TP PRN (12:30)
[2021-06-10] MEDS ORDERED: ONDANSETRON HCL/PF 4 MG/2 ML VIAL IVP PRN (12:30)
[2021-06-10] MEDS ORDERED: hydrOXYzine 10 MG TABLET PO PRN (12:30)
[2021-06-10] MEDS ORDERED: METRONIDAZOLE 500MG/ NS 100ML 500 MG in PREMIX 1 EA IV SCH (13:00)
[2021-06-10] MEDS ORDERED: METRONIDAZOLE 500 MG TABLET ONE (13:27)
[2021-06-10] MEDS: CEFTRIAXONE 1 G in IV D5W 50 ML IV SCH (13:30)
[2021-06-10] MEDS: hydrALAZINE HCL 10 MG TABLET PO SCH ×2 (13:35→17:00)
[2021-06-10] MEDS: SEVELAMER CARBONATE 800 MG TABLET PO SCH ×2 (13:36→18:00)
[2021-06-10] MEDS: METRONIDAZOLE 500 MG TABLET PO SCH ×2 (13:36→21:22)
[2021-06-10 14:30] LABS: BILIRUBIN,URINE NEGATIVE (NEGATIVE); COLOR,URINE YELLOW (YELLOW); LEUKOCYTE ESTERASE ,URINE NEGATIVE (NEGATIVE); NITRITE, URINE NEGATIVE (NEGATIVE); PH,URINE 8.5 (5.0-8.0); PROTEIN,URINE 100 mg/dl (NEGATIVE); UGLUCOSE NEGATIVE (NEGATIVE); UROBILINOGEN,URINE 0.2 EU/dL (0.2)
[2021-06-10 15:02] LABS: BACTERIA,URINE None seen /HPF (None Seen); RBC,URINE 0-2 /HPF (0-2); SQUAMOUS EPITHELIAL CELL,UR Rare /HPF (None Seen); WBC,URINE 0-2 /HPF (0-3)
--- NOTE | 2021-06-10 16:41 | NUR ---
BED ASSIGNMENT 309-2 RECEIVED FROM MANGO PRESTON RN WILL BE RECEAVING REPORT
[2021-06-10] MEDS ORDERED: DOCUSATE SODIUM 100 MG CAPSULE PO SCH (17:00)
[2021-06-10] MEDS ORDERED: GABAPENTIN 100 MG CAPSULE PO SCH (17:00)
[2021-06-10] MEDS ORDERED: APIXABAN 2.5 MG TABLET PO SCH (17:00)
[2021-06-10] MEDS ORDERED: METOPROLOL TARTRATE 50 MG TABLET PO SCH (17:00)
[2021-06-10] MEDS ORDERED: APIXABAN 5 MG TABLET PO SCH (17:00)
--- NOTE | 2021-06-10 17:40 | NUR ---
REPORT GIVEN TO NURSE HERNANDEZ AT BEDSIDE, ROOM 309-1
--- NOTE | 2021-06-10 17:50 | NUR ---
tele cheese blender: notes hd tx started by hd nurse at this time. meds held for now.
--- NOTE | 2021-06-10 19:00 | NUR ---
tele audiology assistant: notes hd tx in progress. report given to jas (bethany) to admit pt and for continuity of care.
--- NOTE | 2021-06-10 19:20 | NUR ---
PATIENT CLERICAL ASSISTANT NOTE RECEIVED PATIENT GETTING DIALYSIS AT THE MOMENT. WILL DO ADMISSION QUESTIONS/PROCESS ONCE HD IS DONE.
--- NOTE | 2021-06-10 20:23 | NUR ---
COMMUNITY ENGAGEMENT REPRESENTATIVE NOTE HD ENDED AT THIS TIME. PER HD NURSE, LARY, PATIENT WAS GETTING HYPOTENSIVE SO HE HAD TO STOP AT 3L OUT INSTEAD OF 3.5L. AND 300ML OF FLUIDS IN. V/S:121/68, HR-99, RR-22, SATURATION OF 92% ON 4LPM OF O2 VIA NC-- PATIENT HX OF COPD, AND 97.5 TEMP. WILL MONITOR FOR BLEEDING.
[2021-06-10 20:50] VITALS: BP 121/68
--- NOTE | 2021-06-10 21:00 | NUR ---
LAUNDRETTE OWNERSKIAGRAPHER NOTE PATIENT A/OX4. AMBULATORY. NO S/S OF APPARENT DISTRESS CURRENTLY ON 4LPM OF O2 VIA NC. DENIES PAIN AT THIS TIME, JUST EATEN. PATIENT INTACT SKIN-- NORMAL SKIN CHANGES FOR HIS AGE AND REFUSES THOROUGH SKIN ASSESSMENT-- PER PATIENT HE DOES NOT HAVE ANY OPEN WOUND. PREFERS TO BE FULL CODE. I SAW THAT BELONGINGS HAS BEEN SIGNED. NEW WRIST BAND ON PATIENT. TELE MONIOTOR READING A-FIB. PER PATIENT HE IS UP TO DATE WITH ALL HIS VACCINES. NOT AN ORGAN DONOR. DENIES SMOKING AND ALCOHOL ABUSE. DENIES ANY FALLS BUT HAS BEEN IN AND OUT OF HOSPITAL. PER PATIENT HE HAS DIALYSIS EVERY ., WED., SAT. WILL FOLLOW THROUGH DOCTOR'S ORDER. AND CONTINUE TO MONITOR PATIENT.
--- NOTE | 2021-06-10 21:05 | NUR ---
CALLED [facility] TO CHANGE SCHEDULED 1700 MEDS TO AT LEAST 2100. PATIENT JUST FINISHED WITH DIALYSIS.
[2021-06-10] MEDS: DOCUSATE SODIUM 100 MG CAPSULE PO SCH (21:23)
[2021-06-10] MEDS: METOPROLOL TARTRATE 50 MG TABLET PO SCH (21:24)
[2021-06-10] MEDS: GABAPENTIN 100 MG CAPSULE PO SCH (21:24)
[2021-06-10] MEDS: APIXABAN 2.5 MG TABLET PO SCH (21:27)
[2021-06-10 21:38] VITALS: BP 125/85
[2021-06-10] MEDS: TRAZODONE 50 MG TABLET PO SCH (22:34)
[2021-06-10] MEDS: ATORVASTATIN 10 MG TABLET PO SCH (22:34)
[2021-06-10] MEDS: MIRTAZAPINE 15 MG TABLET PO SCH (22:35)
[2021-06-10] MEDS: NORTRIPTYLINE HCL 10 MG CAPSULE PO SCH (22:35)
[2021-06-10 23:51] VITALS: BP 102/41
--- NOTE | 2021-06-11 01:06 | NUR ---
FREIGHT CAR CLEANER NOTE CAME BACK FROM MY 30 AND PATIENT WAS BREATHING HEAVILY AND WHEN I WENT IN THE ROOM PATIENT WAS RESTLESS, AND CLAMMY, SAYING "IM GONNA , IM GONNA ", AND HE TOOK OFF HIS OXYGEN. I PUT IT BACK ON, ASKED THE BRICK OFFBEARER TO GET THE V/S MACHINE AND PATIENT WAS DESATURATING IN THE 60'S. GOT NON-REBREATHER MASK FOR THE PATIENT UNTIL STABLE. CHECKED THE BS IT WAS 101. STAYED WITH PATIENT TILL STABLE AND SLOWLY WEANED OFF BACK A SIMPLE MASK AND BACK TO NASAL CANNULA. PATIENT STABLE FOR NOW AND GAVE HIM SNACKS. WILL CONTINUE TO MONITOR.
--- NOTE | 2021-06-11 03:26 | NUR ---
COPY SUPERVISOR NOTE STABLE IN 3LPM OF O2 VIA NC. PER PATIENT HE TAKES OXYGEN 3L OF OXYGEN AT HOME.
[2021-06-11] MEDS: METRONIDAZOLE 500 MG TABLET PO SCH ×3 (05:07→20:24)
[2021-06-11 07:19] LABS: BASOPHILS # (AUTO) 0.1 K/uL (0.0-0.2); EOSINOPHILS % (AUTO) 1.9 % (0.0-6.0); HEMATOCRIT 33 % (39-51); LYMPHOCYTES % (AUTO) 14.7 % (20.0-44.0); MEAN CORPUSCULAR HGB CONC 33 g/dl (31.0-36.0); MEAN CORPUSCULAR VOLUME 99 fL (80-96); MONOCYTES # (AUTO) 0.7 K/uL (0.1-1.30); MONOCYTES % (AUTO) 11.1 % (2.0-12.0); NEUTROPHILS # (AUTO) 4.6 K/uL (1.8-8.9); NEUTROPHILS % (AUTO) 71.3 % (43.0-81.0); PLATELET COUNT (AUTO) 121 K/uL (150-450); RED BLOOD CELL COUNT(AUTO) 3.36 MIL/uL (4.5-6.0); WHITE BLOOD COUNT (AUTO) 6.5 K/uL (4.3-11.0)
--- NOTE | 2021-06-11 07:30 | NUR ---
MILK PICKUP TRUCK DRIVER OPENING NOTE Patient in bed, awake. A/O x 4, able to make needs known. On O2 at 4 LPM via NC, no SOB or s/s of distress noted. IV access on Right hand #20G, intact and patent. On tele monitoring showing controlled AFib, HR on the 100's. Denies any pain of discomfort at this time. Safety precautions in place: bed in low, locked position; siderails up x 2; call light within reach. Will continue to monitor.
--- NOTE | 2021-06-11 07:32 | NUR ---
CORE DROPPER CLOSING REPORT GIVEN TO KURTIS FOR CONTINUITY OF CARE.
[2021-06-11 07:56] LABS: CHOLESTEROL 139 mg/dL (<200); HDL CHOLESTEROL 56 mg/dL (40-60); LDL 68 mg/dL (0-99); TRIGLYCERIDES 116 mg/dL (30-150)
[2021-06-11 08:00] VITALS: BP 100/69
[2021-06-11 08:16] LABS: ALANINE AMINOTRANSFERASE 13 U/L (12-78); ALBUMIN 3.2 g/dL (3.4-5.0); ALKALINE PHOSPHATASE 86 U/L (46-116); ASPARTATE AMINOTRANSFERASE 16 U/L (15-37); BILIRUBIN,TOTAL 0.5 mg/dL (0.2-1.0); CALCIUM, SERUM 9.2 mg/dL (8.5-10.1); CARBON DIOXIDE 25 mmol/L (21-32); CHLORIDE 99 mmol/L (98-107); GLUCOSE 92 mg/dL (74-106); MAGNESIUM 3.2 mg/dL (1.8-2.4); PHOSPHORUS 5.7 mg/dL (2.5-4.9); SODIUM SERUM 136 mmol/L (136-145); TOTAL PROTEIN, SERUM 7.3 g/dL (6.4-8.2); UREA NITROGEN, BLOOD 58 mg/dL (7-18)
[2021-06-11 08:26] LABS: POTASSIUM 6.7 mmol/L (3.5-5.1)
[2021-06-11] MEDS: SEVELAMER CARBONATE 800 MG TABLET PO SCH ×3 (08:48→17:09)
[2021-06-11] MEDS: GABAPENTIN 100 MG CAPSULE PO SCH ×2 (08:48→17:09)
[2021-06-11] MEDS: DOCUSATE SODIUM 100 MG CAPSULE PO SCH ×2 (08:48→17:00)
[2021-06-11] MEDS: ASPIRIN EC 81 MG TABLET.DR PO SCH (08:48)
[2021-06-11] MEDS: METOPROLOL TARTRATE 50 MG TABLET PO SCH ×2 (08:49→20:27)
[2021-06-11] MEDS: LORATADINE 10 MG TABLET PO SCH (08:49)
[2021-06-11] MEDS: hydrALAZINE HCL 10 MG TABLET PO SCH ×3 (08:49→17:10)
[2021-06-11] MEDS: APIXABAN 2.5 MG TABLET PO SCH ×2 (08:51→20:26)
[2021-06-11] MEDS: LEVOTHYROXINE SODIUM 125 MCG TABLET PO SCH (08:53)
[2021-06-11] MEDS: PANTOPRAZOLE 40 MG TABLET.DR PO SCH (08:53)
[2021-06-11] MEDS ORDERED: AMIODARONE HCL 200 MG TABLET PO SCH (09:00)
--- NOTE | 2021-06-11 09:44 | NUR ---
RN NOTE Patient's potassium level is 6.7, MD notified and gave orders for medications; carried out. Awaiting for Hemodialysis. Will continue to monitor patient.
[2021-06-11] MEDS ORDERED: SODIUM POLYSTYRENE SULFONATE 15 G/60 ML BOTTLE PO ONE (10:00)
[2021-06-11] MEDS ORDERED: Calcium Gluconate 0.465 MEQ/ML VIAL IV ONE (10:00)
[2021-06-11] MEDS ORDERED: DEXTROSE 50%-WATER 50 ML DISP.SYRIN IVP ONE (10:00)
[2021-06-11] MEDS ORDERED: Calcium Gluconate 1GM/10ML 4.65 MEQ in IV D5W 50 ML IV ONE (10:00)
[2021-06-11] MEDS ORDERED: INSULIN REGULAR, HUMAN 100 UNIT/ML 3 ML VIAL IV ONE (10:00)
[2021-06-11 12:00] VITALS: BP 118/64
[2021-06-11] MEDS ORDERED: SIMETHICONE 80 MG TAB.CHEW PO PRN (13:00)
--- NOTE | 2021-06-11 13:10 | NUR ---
RN NOTE Patient is on HD right now, held Hydralazine scheduled at 1300.
[2021-06-11] MEDS: CEFTRIAXONE 1 G in IV D5W 50 ML IV SCH (15:55)
[2021-06-11 16:00] VITALS: BP_SYST 102; BP_SYST 111; BP_DIAS 67; BP_DIAS 75
--- NOTE | 2021-06-11 18:39 | NUR ---
RN NOTE Patient complained of gas in the stomach, gave Simethicone PRN.
--- NOTE | 2021-06-11 19:25 | NUR ---
MANAGER TRANSPORT OPENING NOTES RECEIVED PATIENT LAYING AWAKE IN BED. A/O X4. PATIENT WITH REGULAR AND UNLABORED BREATHING ON 4 LPM VIA NASAL CANULA TOLERATED WELL. NO SIGNS AND SYMPTOMS OF DISTRESS NOTED AT THIS TIME. NO COMPLAINS OF PAIN OR DISCOMFORT AT THIS TIME. PATIENT ON TELE MONITOR READING A-FIB @ 87 BPM. IV ACCESS RFA G #22 SL. IV ACCESS PATENT AND INTACT. SAFETY PRECAUTIONS ENFORCED WITH BED LOCKED AND AT LOWEST POSITION. CALL LIGHT WITHIN REACH AT ALL TIMES. WILL CONTINUE TO MONITOR PATIENT.
--- NOTE | 2021-06-11 19:31 | NUR ---
RIG BUILDER CLOSING NOTE Patient in bed, awake. A/O x 4, able to make needs known. On O2 at 4 LPM via NC, no SOB or s/s of distress noted. IV access on RFA #22G, intact and patent. On tele monitoring showing controlled AFib with episodes of PVCs, HR on the 70's. Denies any pain of discomfort at this time. All needs attended to. due meds given. Safety precautions maintained: bed in low, locked position; siderails up x 2; call light within reach. Will endorse to simulation developer nurse for ANALIA.
[2021-06-11 20:00] VITALS: BP 133/52
[2021-06-11] MEDS: MIRTAZAPINE 15 MG TABLET PO SCH (21:04)
[2021-06-11] MEDS: NORTRIPTYLINE HCL 10 MG CAPSULE PO SCH (21:04)
[2021-06-11] MEDS: TRAZODONE 50 MG TABLET PO SCH (21:04)
[2021-06-11] MEDS: ATORVASTATIN 10 MG TABLET PO SCH (21:04)
[2021-06-12] VITALS: BP 122/72
[2021-06-12 04:00] VITALS: BP 109/48
[2021-06-12] MEDS: METRONIDAZOLE 500 MG TABLET PO SCH ×2 (04:27→12:31)
--- NOTE | 2021-06-12 06:49 | NUR ---
NATURAL SCIENCES DEPARTMENT CHAIR CLOSING NOTES PATIENT STILL LAYING AWAKE IN BED. A/O X4. PATIENT WITH REGULAR AND UNLABORED BREATHING ON 4 LPM VIA NASAL CANULA TOLERATED WELL. NO SIGNS AND SYMPTOMS OF DISTRESS NOTED AT THIS TIME. NO COMPLAINS OF PAIN OR DISCOMFORT AT THIS TIME. PATIENT ON TELE MONITOR READING A-FIB @ 60 BPM. IV ACCESS R WRIST G #22 SL. IV ACCESS PATENT AND INTACT. SAFETY PRECAUTIONS ENFORCED WITH BED LOCKED AND AT LOWEST POSITION. CALL LIGHT WITHIN REACH AT ALL TIMES. WILL ENDORSE CONTINUITY OF CARE TO DAY SHIFT NURSE. Addendum: 06/12/21 at 0653 by MITCH MIDDLETON RN IV ACCESS RFA G#22 SL. IV ACCESS PATENT AND INTACT
[2021-06-12] MEDS: PANTOPRAZOLE 40 MG TABLET.DR PO SCH (07:58)
[2021-06-12] MEDS: SEVELAMER CARBONATE 800 MG TABLET PO SCH ×2 (07:58→12:31)
[2021-06-12] MEDS: LEVOTHYROXINE SODIUM 125 MCG TABLET PO SCH (07:59)
[2021-06-12 08:00] VITALS: BP 102/62
--- NOTE | 2021-06-12 08:13 | NUR ---
PULP PILER OPENING NOTES RECEIVED PATIENT LAYING IN BED, AWAKE. A/O X4. PATIENT WITH REGULAR AND UNLABORED BREATHING ON 4 LPM VIA NASAL CANULA TOLERATING WELL. NO SIGNS AND SYMPTOMS OF DISTRESS NOTED AT THIS TIME. NO COMPLAINS OF PAIN OR DISCOMFORT AT THIS TIME. PATIENT ON TELE MONITOR READING A-FIB @ 63 BPM. IV ACCESS RFA G #22 SL. IV ACCESS PATENT AND INTACT. SAFETY PRECAUTIONS IN PLACE WITH BED LOCKED AND AT LOWEST POSITION. CALL LIGHT WITHIN REACH AT ALL TIMES. WILL CONTINUE TO MONITOR PATIENT ACCORDINGLY.
[2021-06-12] MEDS: ASPIRIN EC 81 MG TABLET.DR PO SCH (08:39)
[2021-06-12] MEDS: GABAPENTIN 100 MG CAPSULE PO SCH (08:40)
[2021-06-12] MEDS: LORATADINE 10 MG TABLET PO SCH (08:40)
[2021-06-12] MEDS: METOPROLOL TARTRATE 50 MG TABLET PO SCH (08:40)
[2021-06-12] MEDS: APIXABAN 2.5 MG TABLET PO SCH (08:41)
[2021-06-12] MEDS: DOCUSATE SODIUM 100 MG CAPSULE PO SCH (08:41)
[2021-06-12 08:54] LABS: BASOPHILS # (AUTO) 0.1 K/uL (0.0-0.2); BASOPHILS % (AUTO) 1.2 % (0.0-2.0); EOSINOPHILS % (AUTO) 3.9 % (0.0-6.0); HEMATOCRIT 34 % (39-51); HEMOGLOBIN 11.3 g/dL (13.5-17.5); LYMPHOCYTES # (AUTO) 1.2 K/uL (0.8-4.8); LYMPHOCYTES % (AUTO) 17.8 % (20.0-44.0); MEAN CORPUSCULAR HGB CONC 33 g/dl (31.0-36.0); MEAN CORPUSCULAR VOLUME 98 fL (80-96); MONOCYTES # (AUTO) 1.1 K/uL (0.1-1.30); MONOCYTES % (AUTO) 15.1 % (2.0-12.0); NEUTROPHILS # (AUTO) 4.3 K/uL (1.8-8.9); RED BLOOD CELL COUNT(AUTO) 3.46 MIL/uL (4.5-6.0)
[2021-06-12] MEDS ORDERED: DILTIAZEM HCL CD 240 MG PO SCH (09:00)
[2021-06-12 09:13] LABS: ALANINE AMINOTRANSFERASE 12 U/L (12-78); ALKALINE PHOSPHATASE 76 U/L (46-116); ASPARTATE AMINOTRANSFERASE 14 U/L (15-37); BILIRUBIN,TOTAL 0.5 mg/dL (0.2-1.0); CALCIUM, SERUM 9.1 mg/dL (8.5-10.1); CARBON DIOXIDE 26 mmol/L (21-32); CHLORIDE 97 mmol/L (98-107); CREATININE 5.8 mg/dL (0.6-1.3); GLUCOSE 107 mg/dL (74-106); MAGNESIUM 2.7 mg/dL (1.8-2.4); PHOSPHORUS 6.5 mg/dL (2.5-4.9); POTASSIUM 4.3 mmol/L (3.5-5.1); SODIUM SERUM 135 mmol/L (136-145); TOTAL PROTEIN, SERUM 6.7 g/dL (6.4-8.2); UREA NITROGEN, BLOOD 46 mg/dL (7-18)
[2021-06-12 09:22] VITALS: BP 102/62
[2021-06-12] MEDS: CEFTRIAXONE 1 G in IV D5W 50 ML IV SCH (11:35)
--- NOTE | 2021-06-12 11:35 | NUR ---
RN NOTES DUE ROCEPHIN NOT ADMINISTERED. PATIENT IS ON DIALYSIS.
[2021-06-12 12:11] LABS: PLATELET COUNT (AUTO) 93 K/uL (150-450)
--- NOTE | 2021-06-12 15:06 | NUR ---
STAFF ELECTRONIC WARFARE OFFICER NOTES DISCHARGE PATIENT IN STABLE CONDITION. VITAL SIGNS WITHIN NORMAL LIMITS. DISCHARGE INSTRUCTIONS, HEMODIALYSIS SCHEDULE AND FOLLOW UP DISCUSSED WITH PATIENT. PATIENT VERBALIZED UNDERSTANDING. IV ACCESS REMOVED. COVERED WITH GAUZE, NO BLEEDING NOTED. BELONGINGS ACCOUNTED AND SIGNED FOR. WHEELED TO LOBBY ACCOMPANIED BY LISE. LEFT UNIT IN STABLE CONDITION. MD AND CHARGE NURSE AWARE OF DISCHARGE.
== END 2021-06-12 15:10 | disposition home or self-care (01) | DRG 371 ==
LOC: ER 08:14 → TRANSITION 11:50 → TELE 16:42
PROVIDERS: ADMIT Internal Medicine; ATTEND Internal Medicine
PROC: 5A1D70Z Performance of Urinary Filtration, Intermittent, Less than 6 Hours Per Day (ICD-10-PCS; principal; 2021-06-10)
DX: A04.9 Bacterial intestinal infection, unspecified (principal); I21.A1 Myocardial infarction type 2; I50.33 Acute on chronic diastolic (congestive) heart failure; J96.01 Acute respiratory failure with hypoxia; N18.6 End stage renal disease; I13.2 Hypertensive heart and chronic kidney disease with heart failure and with stage 5 chronic kidney disease, or end stage renal disease; D68.59 Other primary thrombophilia; E87.5 Hyperkalemia; E11.22 Type 2 diabetes mellitus with diabetic chronic kidney disease; D63.8 Anemia in other chronic diseases classified elsewhere; Z20.822 Contact with and (suspected) exposure to COVID-19; Z79.01 Long term (current) use of anticoagulants; Z79.51 Long term (current) use of inhaled steroids; Z79.899 Other long term (current) drug therapy; Z79.890 Hormone replacement therapy; K57.30 Diverticulosis of large intestine without perforation or abscess without bleeding; I48.91 Unspecified atrial fibrillation; Z87.891 Personal history of nicotine dependence; Z99.2 Dependence on renal dialysis; N28.1 Cyst of kidney, acquired; J44.9 Chronic obstructive pulmonary disease, unspecified; A08.4 Viral intestinal infection, unspecified
CPT/HCPCS: 36415; 71045-TC; 80048-TC; 80053-TC; 80061-TC; 80076-TC; 81001; 83605-TC; 83690-TC; 83735-TC; 83880; 84100-TC; 84484-TC; 85025-TC; 86706; 87081-TC; 87086-TC; 87340; 90935-TC; 93307-TC; G0378; J0610; J0696; J1815; J2270; J3490; J7030; J7040; J7050; J7060; Q0177

== ENCOUNTER 2021-08-18 23:23 | Inpatient (IN) | payer OTHER ==
[~2021-08-18] VITALS: Ht 162.6 cm; Wt 83.9 kg
[~2021-08-18 23:23] MED LIST changes: -ALBU2.5V38 NEB; +ALBU8.5H8 IH; +AMIO200T5 PO; -AMLO-213 PO; +ASPI-1420 PO; -CALC667C6 PO; +CLON1PAT13 TP; -Folic Acid PO; +HYDR-3642 PO; +LORA10TA7 PO; +METO100T14 PO; +MIRT-90 PO; +NITR0.4T48 SL; +NORT10CA PO; -OMEP20CA15 PO; +PANT40TA49 PO; +SENN-261 PO; +TRAZ-252 PO; +UMEC62.5 IH
--- NOTE | 2021-08-18 23:23 | NUR ---
BIBRA 39 FOR C/O SUB-STERNAL CP X 3 HRS, SOB, N/V LAST HD TODAY. ASA 324 AND A SPRAY OF NITRO GIVEN BLANCHING MACHINE OPERATOR. CONNECTED PT TO POX AND MONITOR.
[2021-08-18] MEDS ORDERED: ONDANSETRON HCL/PF 4 MG/2 ML VIAL ONE (23:36)
[2021-08-18] MEDS ORDERED: NITROGLYCERIN 0.4 MG/TAB BOTTLE ONE (23:36)
[2021-08-18] MEDS ORDERED: ASPIRIN 325 MG TABLET ONE (23:37)
[2021-08-19] MEDS ORDERED: NITROGLYCERIN 0.4 MG/TAB BOTTLE SL ONE
[2021-08-19] MEDS ORDERED: ONDANSETRON HCL/PF - ER 4 MG/2 ML VIAL IV ONE
[2021-08-19] MEDS ORDERED: ASPIRIN 81 MG TAB.CHEW PO ONE
--- NOTE | 2021-08-19 00:03 | NUR ---
RAC #20G S/L; PATENT AND INTACT. BLOOD COLLECTED AND GIVEN TO FURNITURE UPHOLSTERY MECHANIC
--- NOTE | 2021-08-19 00:07 | NUR ---
DISC INSPECTOR AT PT'S BEDSIDE
--- NOTE | 2021-08-19 00:13 | NUR ---
NITRO SL 1ST TAB ADMINISTERED 0003 NITRO SL 2ND TAB ADMINISTERED 0008 REASSESSED PT & DENIES PAIN AT THIS TIME. VSS
[2021-08-19 00:32] LABS: BASOPHILS # (AUTO) 0.1 K/uL (0.0-0.2); EOSINOPHILS % (AUTO) 3.1 % (0.0-6.0); HEMATOCRIT 31 % (39-51); HEMOGLOBIN 10.4 g/dL (13.5-17.5); LYMPHOCYTES % (AUTO) 14.3 % (20.0-44.0); MEAN CORPUSCULAR HGB CONC 33 g/dl (31.0-36.0); MEAN CORPUSCULAR VOLUME 101 fL (80-96); MONOCYTES # (AUTO) 0.7 K/uL (0.1-1.30); MONOCYTES % (AUTO) 9.9 % (2.0-12.0); NEUTROPHILS # (AUTO) 5.1 K/uL (1.8-8.9); NEUTROPHILS % (AUTO) 71.7 % (43.0-81.0); PLATELET COUNT (AUTO) 141 K/uL (150-450); RED BLOOD CELL COUNT(AUTO) 3.09 MIL/uL (4.5-6.0); WHITE BLOOD COUNT (AUTO) 7.1 K/uL (4.3-11.0)
[2021-08-19 00:46] LABS: CALCIUM, SERUM 8.8 mg/dL (8.5-10.1); CARBON DIOXIDE 29 mmol/L (21-32); CHLORIDE 100 mmol/L (98-107); GLUCOSE 109 mg/dL (74-106); SODIUM SERUM 140 mmol/L (136-145); UREA NITROGEN, BLOOD 73 mg/dL (7-18)
[2021-08-19 01:03] LABS: CREATININE 8.3 mg/dL (0.6-1.3); POTASSIUM 6.2 mmol/L (3.5-5.1)
--- NOTE | 2021-08-19 01:03 | NUR ---
potassium 6.2 crea 8.3
--- NOTE | 2021-08-19 01:11 | NUR ---
COVID ANTIGEN SWAB COLLECTED AND SENT TO LAB
[2021-08-19 01:57] LABS: CALCIUM, SERUM 8.4 mg/dL (8.5-10.1); CARBON DIOXIDE 28 mmol/L (21-32); CHLORIDE 101 mmol/L (98-107); GLUCOSE 103 mg/dL (74-106); SODIUM SERUM 140 mmol/L (136-145); UREA NITROGEN, BLOOD 72 mg/dL (7-18)
[2021-08-19 02:00] LABS: CREATININE 8.3 mg/dL (0.6-1.3)
--- NOTE | 2021-08-19 03:10 | NUR ---
MRSA SWAB COLLECTED AND SENT TO LAB. PATIENT'S BELONGINGS LIST DONE.
--- NOTE | 2021-08-19 06:08 | NUR ---
REPORT GIVEN TO ROSI Marshall RN FOR ANALIA
--- NOTE | 2021-08-19 06:58 | NUR ---
PT TRANSFERRED TO 3W VIA ACLS PROTOCOL. VSS. ALL BELONGINGS WITH PT
[2021-08-19] MEDS ORDERED: INSULIN REGULAR, HUMAN 100 UNIT/ML 3 ML VIAL SQ PRN (07:00)
[2021-08-19] MEDS ORDERED: MORPHINE SULFATE INJ 2 MG/ML DISP.SYRIN IV PRN (07:00)
[2021-08-19] MEDS ORDERED: Z GUARD REMEDY 4 OZ OINT TP PRN (07:00)
[2021-08-19] MEDS ORDERED: ONDANSETRON HCL/PF 4 MG/2 ML VIAL IVP PRN (07:00)
[2021-08-19] MEDS ORDERED: DEXTROSE 50%-WATER 50 ML DISP.SYRIN IV PRN (07:00)
--- NOTE | 2021-08-19 07:58 | NUR ---
PC NETWORK TECHNICIAN OPENING NOTE Patient in bed, asleep. A/O x 3. On O2 at 2 LPM, breathing evenly and unlabored. no SOb or s/s of distress noted. IV access on RAC #20, SL intact and patent. RAMAN fistula noted. On tele monitoring showing controlled Afib, HR 97. Safety precautions in place: bed in low, locked position; siderails up x 2; call light within reach. Will continue to monitor.
[2021-08-19] MEDS: PANTOPRAZOLE 40 MG TABLET.DR PO SCH (08:17)
[2021-08-19] MEDS: BLOOD SUGAR DIAGNOSTIC 1 EACH STRIP IN SCH ×4 (08:18→21:30)
[2021-08-19] MEDS ORDERED: SENNOSIDES 8.6 MG TABLET PO PRN (09:00)
[2021-08-19] MEDS ORDERED: HEPARIN SODIUM, PORCINE 5000 UNITS/1 ML VIAL SQ SCH (09:00)
[2021-08-19] MEDS ORDERED: NITROGLYCERIN 0.4 MG/TAB BOTTLE SL PRN (09:00)
[2021-08-19] MEDS ORDERED: PANTOPRAZOLE 40 MG TABLET.DR PO SCH (09:00)
[2021-08-19] MEDS: ASPIRIN EC 81 MG TABLET.DR PO SCH (09:39)
[2021-08-19] MEDS: LORATADINE 10 MG TABLET PO SCH (09:40)
[2021-08-19] MEDS: DOCUSATE SODIUM 100 MG CAPSULE PO SCH ×2 (09:40→17:22)
[2021-08-19] MEDS: GABAPENTIN 100 MG CAPSULE PO SCH ×2 (09:40→17:22)
[2021-08-19] MEDS: APIXABAN 2.5 MG TABLET PO SCH ×2 (09:41→17:26)
[2021-08-19] MEDS: AMIODARONE HCL 200 MG TABLET PO SCH (09:44)
[2021-08-19] MEDS: SEVELAMER CARBONATE 800 MG TABLET PO SCH ×2 (12:03→17:22)
[2021-08-19] MEDS: NITROGLYCERIN 30 GM TUBE TP SCH ×2 (12:04→17:23)
[2021-08-19 12:06] VITALS: BP 121/58
[2021-08-19] MEDS: IPRATROPIUM NEB FS 0.5 MG/2.5 ML AMPUL.NEB NEB SCH ×2 (13:30→21:23)
[2021-08-19] MEDS: ACETAMINOPHEN 325 MG TABLET PO PRN (15:44)
[2021-08-19 16:16] VITALS: BP 124/80
[2021-08-19] MEDS: METOPROLOL TARTRATE 50 MG TABLET PO SCH (17:00)
--- NOTE | 2021-08-19 17:27 | NUR ---
RN NOTE Held Metoprolol scheduled for 1700, patient's BP is 124/80. Patient going to have hemodialysis tonight. MARQUES Baez, hemodialysis nurse aware.
--- NOTE | 2021-08-19 18:48 | NUR ---
[facility] MERCHANDISER CLOSING NOTE Patient in bed, asleep. A/O x 3. On O2 at 3 LPM, breathing evenly and unlabored. No SOB or s/s of distress noted. IV access on RAC #20, SL intact and patent. RAMAN fistula noted. On tele monitoring showing controlled Afib, HR 94. All needs attended to. Due meds given. Patient currently on hemodialysis. Safety precautions maintained: bed in low, locked position; siderails up x 2; call light within reach. Will endorse to radio producer nurse for ANALIA.
--- NOTE | 2021-08-19 19:30 | NUR ---
MARKETING REPORTING ANALYST OPENING NOTES RECEIVED PATIENT LYING IN BED, EYES CLOSED. EASY TO AROUSE. ONGOING HEMODIALYSIS. A/O X3. ON O2 AT 3 LPM VIA NASAL CANULA. BREATHING EVEN AND UNLABORED. NO APPARENT DISTRESS NOTED. ON TELE MONITORING READING CONTROLLED A-FIB AT 106 BPM. HAS RIGHT AC IV ACCESS #20G AND SALINE LOCKED. LEAKING NOTED. INSTRUCTED PATIENT TO KEEP HIS ARM STRAIGHT. SAFETY PRECAUTIONS IN PLACED. WILL CONTINUE PLAN OF CARE.
[2021-08-19 20:00] VITALS: BP 135/78
[2021-08-19 21:09] VITALS: BP 135/78
[2021-08-19] MEDS: NORTRIPTYLINE HCL 10 MG CAPSULE PO SCH (21:32)
[2021-08-19] MEDS: TRAZODONE 50 MG TABLET PO SCH (21:32)
[2021-08-19] MEDS: ATORVASTATIN 10 MG TABLET PO SCH (21:32)
[2021-08-19] MEDS: MIRTAZAPINE 15 MG TABLET PO SCH (21:32)
--- NOTE | 2021-08-19 22:00 | NUR ---
CLAY THROWER NOTES PRN MORPHINE SULFATE GIVEN. C/O PAIN 12/17. V/S CHECKED PRIOR TO ADMINISTERING MEDICATION.
[2021-08-20] VITALS (8 sets, daily range): BP systolic 112–128; BP diastolic 53–77
[2021-08-20] MEDS: NITROGLYCERIN 30 GM TUBE TP SCH ×5 (00:46→23:51)
[2021-08-20] MEDS: IPRATROPIUM NEB FS 0.5 MG/2.5 ML AMPUL.NEB NEB SCH ×4 (01:30→19:58)
--- NOTE | 2021-08-20 01:30 | NUR ---
FAMILY MEDIATOR NOTES PER RT, PATIENT REFUSED TX. EXPLAINED RISKS AND BENEFITS X3.
[2021-08-20] MEDS: BLOOD SUGAR DIAGNOSTIC 1 EACH STRIP IN SCH ×4 (06:40→23:00)
--- NOTE | 2021-08-20 06:46 | NUR ---
HIGHWAY MAINTAINER CLOSING NOTES PATIENT LYING IN BED ASLEEP AND COVERED WITH BLANKET. RESPONSIVE TO VERBAL AND TACTILE STIMULI. A/O X3. ON O2 AT 4 LPM VIA NASAL CANULA SATURATING BETWEEN 86%-90%. NO SOB OR . ON TELE MONITORING READING CONTROLLED A-FIB AT 108 BPM. HAS RIGHT AC IV ACCESS #20G AND SALINE LOCKED. INTACT, PATENT AND FLUSHING. ALL NEEDS ATTENDED. KEPT DRY AND COMFORTABLE. AMBULATORY WITH CANE. SAFETY PRECAUTIONS IN PLACED: BED LOW AND LOCKED, SIDE RAILS UP X2, CALL LIGHT WITHIN REACH.
[2021-08-20 07:07] LABS: CALCIUM, SERUM 8.9 mg/dL (8.5-10.1); CARBON DIOXIDE 27 mmol/L (21-32); CHLORIDE 101 mmol/L (98-107); CREATININE 6.4 mg/dL (0.6-1.3); GLUCOSE 92 mg/dL (74-106); MAGNESIUM 2.9 mg/dL (1.8-2.4); PHOSPHORUS 4.7 mg/dL (2.5-4.9); POTASSIUM 4.9 mmol/L (3.5-5.1); SODIUM SERUM 138 mmol/L (136-145); UREA NITROGEN, BLOOD 51 mg/dL (7-18)
[2021-08-20 07:38] LABS: CHOLESTEROL 93 mg/dL (<200); HDL CHOLESTEROL 40 mg/dL (40-60); LDL 35 mg/dL (0-99); TRIGLYCERIDES 136 mg/dL (30-150)
--- NOTE | 2021-08-20 07:43 | NUR ---
RN OPENING NOTE PATIENT IN BED RESTING, AWAKE, A/O X3, NO S/S OF PAIN NOTED AT THIS TIME. ON 4L OXYGEN VIA NC, NO DISTRESS OR SHORTNESS OF BREATH NOTED. IV ACCESS RAC #20G INTACT, PATENT AND FLUSHING WELL. PATIENT WITH EXTERNAL BALANCING MACHINE OPERATOR WITH CURRENT READING OF AFIB AND HR 108, NO CARDIAC DISTRESS NOTED. FALL AND SAFETY MEASURES IN PLACE, BED ALARM ON, BED IN LOW AND LOCK POSITION, CALL LIGHT AND TABLE WITHIN EASY REACH, SIDE RAILS UP X2. WILL CONTINUE TO MONITOR.
[2021-08-20 07:46] LABS: BASOPHILS # (AUTO) 0.1 K/uL (0.0-0.2); BASOPHILS % (AUTO) 0.9 % (0.0-2.0); EOSINOPHILS % (AUTO) 3.1 % (0.0-6.0); HEMATOCRIT 30 % (39-51); HEMOGLOBIN 10.4 g/dL (13.5-17.5); LYMPHOCYTES # (AUTO) 0.9 K/uL (0.8-4.8); LYMPHOCYTES % (AUTO) 14.7 % (20.0-44.0); MEAN CORPUSCULAR HGB CONC 34 g/dl (31.0-36.0); MEAN CORPUSCULAR VOLUME 100 fL (80-96); MONOCYTES # (AUTO) 0.6 K/uL (0.1-1.30); MONOCYTES % (AUTO) 10.6 % (2.0-12.0); NEUTROPHILS # (AUTO) 4.2 K/uL (1.8-8.9); NEUTROPHILS % (AUTO) 70.7 % (43.0-81.0); PLATELET COUNT (AUTO) 91 K/uL (150-450); RED BLOOD CELL COUNT(AUTO) 3.04 MIL/uL (4.5-6.0); WHITE BLOOD COUNT (AUTO) 5.9 K/uL (4.3-11.0)
[2021-08-20] MEDS: METOPROLOL TARTRATE 50 MG TABLET PO SCH ×2 (09:09→17:06)
[2021-08-20] MEDS: LORATADINE 10 MG TABLET PO SCH (09:09)
[2021-08-20] MEDS: DOCUSATE SODIUM 100 MG CAPSULE PO SCH ×2 (09:09→17:06)
[2021-08-20] MEDS: GABAPENTIN 100 MG CAPSULE PO SCH ×2 (09:10→17:05)
[2021-08-20] MEDS: ASPIRIN EC 81 MG TABLET.DR PO SCH (09:10)
[2021-08-20] MEDS: LEVOTHYROXINE SODIUM 100 MCG TABLET PO SCH (09:10)
[2021-08-20] MEDS: PANTOPRAZOLE 40 MG TABLET.DR PO SCH (09:10)
[2021-08-20] MEDS: SEVELAMER CARBONATE 800 MG TABLET PO SCH ×3 (09:10→17:05)
[2021-08-20] MEDS: AMIODARONE HCL 200 MG TABLET PO SCH (09:11)
[2021-08-20] MEDS: APIXABAN 2.5 MG TABLET PO SCH ×2 (09:13→17:07)
[2021-08-20 13:15] LABS: BAND % (MANUAL) 1 % (0.0-5.0); EOSINOPHILS % (MANUAL) 4 % (0-4); LYMPHOCYTES % (MANUAL) 19 % (16-48); MONOCYTES % (MANUAL) 8 % (0-11.0); NEUTROPHILS % (MANUAL) 68 (42-76)
--- NOTE | 2021-08-20 13:33 | NUR ---
RN NOTE PATIENT IS SCHEDULE FOR CT [facility]GIO [facility] WITH 3D IMAGE. RADIOLOGY CALLED AND SAID PATIENT NEED DIALYSIS AFTER PROCEDURE. PATIENT HAD DIALYSIS YESTERDAY. DOCTOR Dutch WAS INFORMED, PER DR. DYER IF THE CONTRAS IS LESS THAN 700ML PATIENT CAN HAVE PROCEDURE DONE TODAY AND HAVE DIALYSIS TOMORROW. RADIOLOGY WAS INFORMED, THEY SAID THEY WILL ONLY USE 100ML CONTRAST. PATIENT HAVE DIALYSIS SCHEDULE FOR TOMORROW.
[2021-08-20] MEDS ORDERED: IV NS 0.9% 250 ML IV ONE (13:38)
[2021-08-20] MEDS ORDERED: IOHEXOL-350 100 ML VIAL IV ONE (13:38)
[2021-08-20] MEDS ORDERED: CT SWABBABLE VALVE TRANS SET 1 EA INFUS.SET MC ONE (13:38)
--- NOTE | 2021-08-20 13:46 | NUR ---
RN NOTE PATIENT IS NOT IN ROOM, PATIENT WAS TAKEN TO GET A CT AN[facility]IO [facility] WITH 3D IMAGE.
--- NOTE | 2021-08-20 14:00 | NUR ---
RN NOTE PATIENT IS BACK TO ROOM, PATIENT WAS NOT ABLE TO GET THE CT AN[facility] WITH 3D IMAGE DONE TODAY, DUE TO HIS BLOOD PRESSURE. PER RADIOLOGY DOCTOR SHONDA WAS NOTIFIED. CHARGE NURSE AWARE.
[2021-08-20] MEDS ORDERED: NITROGLYCERIN 0.4 MG/TAB BOTTLE SL ONE (14:30)
[2021-08-20] MEDS ORDERED: METOPROLOL TARTRATE INJ 5 MG/5 ML AMPUL IVP PRN (14:30)
--- NOTE | 2021-08-20 18:42 | NUR ---
RN CLOSING NOTE PATIENT IN BED RESTING, AWAKE, A/O X3, NO S/S OF PAIN NOTED AT THIS TIME. ON 4L OXYGEN VIA NC, NO DISTRESS OR SHORTNESS OF BREATH NOTED. IV ACCESS RAC #20G, LEANDRA #18G INTACT, PATENT AND FLUSHING WELL. 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 FALL AND SAFETY MEASURES IN PLACE, BED ALARM ON, BED IN LOW AND LOCK POSITION, CALL LIGHT AND TABLE WITHIN EASY REACH, SIDE RAILS UP X2. WILL ENDORSE TO AUTOMOTIVE CONSULTANT.
--- NOTE | 2021-08-20 20:26 | NUR ---
MS/TELE/RN PATIENT IS AWAKE, ALERT, COMFORTABLE, NO DISTRESS NOTED, CALL LIGHT IN REACH, FALL PRECAUTIONS PER PROTOCOL IMPLEMENTED, NEEDS ATTENDED AT THIS TIME, WILL MONITOR.
[2021-08-20] MEDS: ATORVASTATIN 10 MG TABLET PO SCH (23:00)
[2021-08-20] MEDS: NORTRIPTYLINE HCL 10 MG CAPSULE PO SCH (23:01)
[2021-08-20] MEDS: TRAZODONE 50 MG TABLET PO SCH (23:01)
[2021-08-20] MEDS: MIRTAZAPINE 15 MG TABLET PO SCH (23:01)
[2021-08-21 00:02] VITALS: BP 102/62
[2021-08-21] MEDS: IPRATROPIUM NEB FS 0.5 MG/2.5 ML AMPUL.NEB NEB SCH ×3 (01:49→14:46)
[2021-08-21 04:00] VITALS: BP 150/78
[2021-08-21] MEDS: NITROGLYCERIN 30 GM TUBE TP SCH ×3 (06:03→17:02)
--- NOTE | 2021-08-21 06:52 | NUR ---
MS/TELE/RN PATIENT IS SLEEPING AT THIS TIME, APPEAR COMFORTABLE, NO SIGNS OF DISTRESS NOTED, NPO AFTER MIDNIGHT FOR POSSIBLE CARDIAC ANGIOGRAM TODAY, ALL NEEDS ATTENDED AT THIS TIME, WILL CONTINUE TO MONITOR.
--- NOTE | 2021-08-21 07:51 | NUR ---
RN OPENING NOTE PATIENT IN BED RESTING, AWAKE, A/O X3, NO S/S OF PAIN NOTED AT THIS TIME. ON 4L OXYGEN VIA NC, NO DISTRESS OR SHORTNESS OF BREATH NOTED. IV ACCESS RAC #20G INTACT, PATENT AND FLUSHING WELL. PATIENT WITH EXTERNAL FRENCH WEAVER WITH CURRENT READING OF AFIB AND HR 83, NO CARDIAC DISTRESS NOTED. FALL AND SAFETY MEASURES IN PLACE, BED ALARM ON, BED IN LOW AND LOCK POSITION, CALL LIGHT AND TABLE WITHIN EASY REACH, SIDE RAILS UP X2. WILL CONTINUE TO MONITOR.
[2021-08-21 08:00] VITALS: BP_SYST 125; BP_SYST 172; BP_DIAS 74; BP_DIAS 97
[2021-08-21] MEDS: BLOOD SUGAR DIAGNOSTIC 1 EACH STRIP IN SCH ×3 (09:15→17:12)
[2021-08-21] MEDS: ASPIRIN EC 81 MG TABLET.DR PO SCH (09:15)
[2021-08-21] MEDS: PANTOPRAZOLE 40 MG TABLET.DR PO SCH (09:16)
[2021-08-21] MEDS: DOCUSATE SODIUM 100 MG CAPSULE PO SCH ×2 (09:16→16:48)
[2021-08-21] MEDS: METOPROLOL TARTRATE 50 MG TABLET PO SCH ×2 (09:17→16:49)
[2021-08-21] MEDS: GABAPENTIN 100 MG CAPSULE PO SCH ×2 (09:17→16:48)
[2021-08-21] MEDS: LORATADINE 10 MG TABLET PO SCH (09:17)
[2021-08-21] MEDS: AMIODARONE HCL 200 MG TABLET PO SCH (09:17)
[2021-08-21] MEDS: APIXABAN 2.5 MG TABLET PO SCH ×2 (09:18→16:50)
[2021-08-21] MEDS: SEVELAMER CARBONATE 800 MG TABLET PO SCH ×3 (09:21→17:01)
[2021-08-21] MEDS: LEVOTHYROXINE SODIUM 100 MCG TABLET PO SCH (09:21)
[2021-08-21] MEDS: ACETAMINOPHEN 325 MG TABLET PO PRN (11:00)
[2021-08-21 12:00] VITALS: BP 150/93
[2021-08-21 16:00] VITALS: BP 122/68
[2021-08-21 17:02] VITALS: BP 122/68
--- NOTE | 2021-08-21 18:59 | NUR ---
LOCOMOTIVE LUBRICATING SYSTEMS CLERK NOTE PATIENT DISCHARGE IN STABLE CONDITION. AFTER HE HAD HIS DIALYSIS, OUTPUT 2000ML, A/O X4. V/S TAKEN, STABLE AND RECORDED. NO IV ACCESS. SKIN ASSESSMENT DONE, SKIN IS INTACT. ALL BELONGINGS CHECKED AND SIGNED. HEALTH TEACHING AND DISCHARGE INSTRUCTIONS GIVEN AND VERBALIZED UNDERSTANDING. PATIENT LEFT UNIT AMBULATING WITH NO SIGNS OF DISTRESS, ACCOMPANIED BY RN TO THE LOBBY. PATIENT WENT HOME WITH HIS SON DIANNE. CHARGE NURSE AWARE OF DISCHARGE.
== END 2021-08-21 19:00 | disposition home or self-care (01) | DRG 302 ==
LOC: ER 23:25 → TELE 08-19 04:55
PROVIDERS: ADMIT Internal Medicine; ATTEND Internal Medicine
PROC: 5A1D70Z Performance of Urinary Filtration, Intermittent, Less than 6 Hours Per Day (ICD-10-PCS; principal; 2021-08-19)
DX: I25.110 Atherosclerotic heart disease of native coronary artery with unstable angina pectoris (principal); N18.6 End stage renal disease; I50.33 Acute on chronic diastolic (congestive) heart failure; I13.2 Hypertensive heart and chronic kidney disease with heart failure and with stage 5 chronic kidney disease, or end stage renal disease; D68.59 Other primary thrombophilia; J84.9 Interstitial pulmonary disease, unspecified; J90 Pleural effusion, not elsewhere classified; E11.22 Type 2 diabetes mellitus with diabetic chronic kidney disease; K57.90 Diverticulosis of intestine, part unspecified, without perforation or abscess without bleeding; Z20.822 Contact with and (suspected) exposure to COVID-19; Z79.82 Long term (current) use of aspirin; Z79.899 Other long term (current) drug therapy; Z79.51 Long term (current) use of inhaled steroids; Z79.01 Long term (current) use of anticoagulants; J44.9 Chronic obstructive pulmonary disease, unspecified; N26.9 Renal sclerosis, unspecified; Z99.2 Dependence on renal dialysis; F17.200 Nicotine dependence, unspecified, uncomplicated; I48.91 Unspecified atrial fibrillation; D63.8 Anemia in other chronic diseases classified elsewhere; E87.5 Hyperkalemia; E03.9 Hypothyroidism, unspecified
CPT/HCPCS: 36415; 71045-TC; 80048-TC; 80061-TC; 82962-TC; 83735-TC; 84100-TC; 84484-TC; 85025-TC; 87081-TC; 90935-TC; 94799-TC; C9803; G0378; J1644; J1815; J2270; J2405; J7030; J7050; Q9967

== ENCOUNTER 2022-01-13 14:25 | Inpatient (IN) | payer OTHER ==
[~2022-01-13] VITALS: Ht 170.2 cm; Wt 81.6 kg
--- NOTE | 2022-01-13 14:29 | NUR ---
TP ER BED 9/ NONRA 39 FROM HD, C/O CHEST PAIN SINCE LAST NIGHT THAT INCREASED WHILE RECIEVING DIALYSIS, PT HAS 45 MINS LEFT PRIOR TO FINISHING DIALYSIS. 1 NITRO SPRAY GIVEN BY EMS AND CHEST PAIN RESOLVED. ATTACHED TO MONITOR, PT SATING AT 85% ON ROOM AIR UPON ARRIVAL PLACED ON 2L NC SATTING AT 100%. AWAITING MD ORDERS.
--- NOTE | 2022-01-13 14:53 | NUR ---
IV ESTABLIHSED R UPPER ARM 20G. LABS DRAWN AND COLLECTED.
[2022-01-13 15:02] LABS: BASOPHILS # (AUTO) 0.1 K/uL (0.0-0.2); BASOPHILS % (AUTO) 1.3 % (0.0-2.0); EOSINOPHILS % (AUTO) 3.5 % (0.0-6.0); HEMATOCRIT 30 % (39-51); HEMOGLOBIN 9.7 g/dL (13.5-17.5); LYMPHOCYTES % (AUTO) 12.3 % (20.0-44.0); MEAN CORPUSCULAR HGB CONC 32 g/dl (31.0-36.0); MEAN CORPUSCULAR VOLUME 97 fL (80-96); MONOCYTES # (AUTO) 1.2 K/uL (0.1-1.30); MONOCYTES % (AUTO) 13.9 % (2.0-12.0); NEUTROPHILS # (AUTO) 5.9 K/uL (1.8-8.9); PLATELET COUNT (AUTO) 249 K/uL (150-450); WHITE BLOOD COUNT (AUTO) 8.5 K/uL (4.3-11.0)
[2022-01-13 15:09] LABS: CARBON DIOXIDE 31 mmol/L (21-32); CHLORIDE 100 mmol/L (98-107); CREATININE 3.1 mg/dL (0.6-1.3); GLUCOSE 116 mg/dL (74-106); POTASSIUM 3.5 mmol/L (3.5-5.1); SODIUM SERUM 140 mmol/L (136-145); UREA NITROGEN, BLOOD 19 mg/dL (7-18)
--- NOTE | 2022-01-13 15:19 | NUR ---
covid swab done and sent to the lab
[2022-01-13] MEDS ORDERED: FURO-144 PO (15:42)
[2022-01-13] MEDS ORDERED: CALC667C6 PO (15:42)
[2022-01-13] MEDS ORDERED: METO25TA4 PO (15:42)
[2022-01-13] MEDS ORDERED: AMLO-213 PO (15:42)
[2022-01-13] MEDS ORDERED: MULT-1196 PO (15:42)
[2022-01-13] MEDS ORDERED: METOPROLOL TARTRATE INJ 5 MG/5 ML AMPUL ONE (15:51)
[2022-01-13] MEDS ORDERED: ASPIRIN 81 MG TAB.CHEW ONE (15:52)
[2022-01-13] MEDS ORDERED: METOPROLOL TARTRATE INJ 5 MG/5 ML AMPUL IVP PRN (16:00)
[2022-01-13] MEDS ORDERED: ASPIRIN 81 MG TAB.CHEW PO ONE (16:00)
[2022-01-13] MEDS ORDERED: MORPHINE SULFATE INJ 2 MG/ML DISP.SYRIN IV PRN (16:30)
[2022-01-13] MEDS ORDERED: TEMAZEPAM 15 MG CAPSULE PO PRN (16:30)
[2022-01-13] MEDS ORDERED: Z GUARD REMEDY 4 OZ OINT TP PRN (16:30)
[2022-01-13] MEDS ORDERED: MAGNESIUM HYDROXIDE 30 ML UDC PO PRN (16:30)
[2022-01-13] MEDS ORDERED: ONDANSETRON HCL/PF 4 MG/2 ML VIAL IVP PRN (16:30)
--- NOTE | 2022-01-13 17:30 | NUR ---
GOT BED 317
--- NOTE | 2022-01-13 18:09 | NUR ---
REPORT GIVEN TO MANGO FOR ANALIA
[2022-01-13] MEDS ORDERED: MIRT-90 PO (19:20)
[2022-01-13] MEDS ORDERED: ASPI-1420 PO (19:20)
[2022-01-13] MEDS ORDERED: NORT25CA PO (19:20)
[2022-01-13] MEDS ORDERED: SENN-261 PO (19:20)
[2022-01-13] MEDS ORDERED: ALBU8.5H8 IH (19:20)
[2022-01-13] MEDS ORDERED: DICL100G26 TP (19:20)
[2022-01-13] MEDS ORDERED: FERR325T23 PO (19:20)
[2022-01-13] MEDS ORDERED: PANT40TA49 PO (19:20)
[2022-01-13] MEDS ORDERED: TRAZ-252 PO (19:20)
[2022-01-13] MEDS ORDERED: CLON1PAT13 TP (19:20)
[2022-01-13] MEDS ORDERED: UMEC62.5 IH (19:20)
[2022-01-13] MEDS ORDERED: NITR0.4T48 SL (19:20)
--- NOTE | 2022-01-13 19:29 | NUR ---
PAYLOADER MACHINE OPERATOR AT PT'S BEDSIDE
[2022-01-13 20:05] VITALS: BP 132/70
--- NOTE | 2022-01-13 20:05 | NUR ---
PT TRANSFERRED TO 317 VIA ACLS PROTOCOL. VSS. ALL BELONGINGS WITH PT. HOME MEDS GIVEN TO 3W RN
--- NOTE | 2022-01-13 20:45 | NUR ---
RN NOTES PT A/O X4 KINYARWANDA SPEAKING ABLE TO COMMUNICATE IN [place]. NO REPOT OF CHEST PAIN AT THIS TIME. PT IS ON 2L NS SAT 95% PE RPT HE USES OXYGEN PRN AT HOME @2L. PT NOTED WITH IV ACCESS ON THE RAC #20G S/L AND RAMAN FISTULA. SIGN PLACED IN ROOM FOR NO BLOOD DRAW OR BP ON LEFT ARM. PT PROVIDED WITH SNACKS AT THIS TIME. PT ORIENTED TO UNIT AND ROOM. CALL LIGHT Notegraphy. TABLE WITHIN REACH. HOB ELEVATED. BED IN LOWEST POSITION. TABLE WITHIN REACH INSTRUCTED ON HOW TO USE CALL LIGHT. Addendum: 01/14/22 at 0017 by SKEY TAVERAS RN pt refused to take off clothing from home at this time. explained to pt we need to check his skin for wounds or open skin and change to a pt gown pt responded" i don't have any its okay you don't have to check and i feel more comfortable earing my own closed. risk and benefits explained x3 refused x3. will ask pt again later to see if he changed his mind.
[2022-01-14] VITALS: BP 105/78
--- NOTE | 2022-01-14 06:52 | NUR ---
RN NOTES PT A/O X4 GEORGIAN SPEAKING ABLE TO COMMUNICATE IN [place]. NO REPORT OF CHEST PAIN AT THIS TIME. PT IS ON 2L NS SAT 95% PE RPT HE USES OXYGEN PRN AT HOME @2L. PT NOTED WITH IV ACCESS ON THE RAC #20G S/L AND RAMAN FISTULA. SIGN PLACED IN ROOM FOR NO BLOOD DRAW OR BP ON LEFT ARM. PT ON TELE MONITOR READING AFIB 100S CONTROLLED. CALL LIGHT WEHLIN REACH. TABLE WITHIN REACH. HOB ELEVATED. BED IN LOWEST POSITION. TABLE WITHIN REACH INSTRUCTED ON HOW TO USE CALL LIGHT.
[2022-01-14] MEDS ORDERED: PANTOPRAZOLE 40 MG TABLET.DR PO SCH (07:30)
--- NOTE | 2022-01-14 07:30 | NUR ---
STATISTICAL TYPIST OPENING NOTES RECEIVED PATIENT ON BED AWAKE AND A/O X4. ON O2 AT 2LPM VIA NASAL CANNULA TOLERATING WELL. NO SOB NOTED. NOT IN DISTRESS. WITH NO COMPLAINTS OF PAIN OR DISCOMFORT AT THIS TIME. ON TELE MONITOR CURRENTLY READING CONTROLLED A-FIB AT 94BPM. WITH IV ACCESS AT RIGHT AC G 20 SALINE LOCKED, PATENT AND INTACT. WITH LEFT UPPER ARM FISTULA FOR HD. SAFETY MEASURES IN PLACED. CALL LIGHT WITHIN REACH. BED ON LOWEST LOCKED POSITION, SIDE RAILS UP X2. WILL CONTINUE TO MONITOR.
[2022-01-14 07:41] LABS: BASOPHILS # (AUTO) 0.1 K/uL (0.0-0.2); BASOPHILS % (AUTO) 1.2 % (0.0-2.0); HEMATOCRIT 29 % (39-51); HEMOGLOBIN 9.6 g/dL (13.5-17.5); LYMPHOCYTES % (AUTO) 10.7 % (20.0-44.0); MEAN CORPUSCULAR HGB CONC 33 g/dl (31.0-36.0); MEAN CORPUSCULAR VOLUME 97 fL (80-96); MONOCYTES % (AUTO) 11.2 % (2.0-12.0); NEUTROPHILS # (AUTO) 6.5 K/uL (1.8-8.9); NEUTROPHILS % (AUTO) 71.9 % (43.0-81.0); PLATELET COUNT (AUTO) 234 K/uL (150-450); RED BLOOD CELL COUNT(AUTO) 3.02 MIL/uL (4.5-6.0)
[2022-01-14 08:00] VITALS: BP 126/76
[2022-01-14 08:13] LABS: CALCIUM, SERUM 10.1 mg/dL (8.5-10.1); CARBON DIOXIDE 29 mmol/L (21-32); CHLORIDE 100 mmol/L (98-107); CREATININE 4.4 mg/dL (0.6-1.3); GLUCOSE 105 mg/dL (74-106); MAGNESIUM 2.2 mg/dL (1.8-2.4); PHOSPHORUS 3.7 mg/dL (2.5-4.9); SODIUM SERUM 139 mmol/L (136-145); UREA NITROGEN, BLOOD 34 mg/dL (7-18)
[2022-01-14] MEDS ORDERED: ASPIRIN 81 MG TAB.CHEW PO SCH (09:00)
[2022-01-14] MEDS: AMLODIPINE BESYLATE 10 MG TABLET PO SCH (09:15)
[2022-01-14] MEDS ORDERED: AMIODARONE HCL 200 MG TABLET PO SCH (09:15)
[2022-01-14] MEDS ORDERED: DICLOFENAC TP PRN (09:30)
[2022-01-14] MEDS ORDERED: NITROGLYCERIN 0.4 MG/TAB BOTTLE SL PRN (09:30)
[2022-01-14] MEDS ORDERED: LORATADINE 10 MG TABLET PO PRN (09:30)
[2022-01-14] MEDS ORDERED: hydrOXYzine 10 MG TABLET PO PRN (09:30)
[2022-01-14] MEDS ORDERED: SENNOSIDES 8.6 MG TABLET PO PRN (09:30)
[2022-01-14] MEDS ORDERED: ALBUTEROL SULFATE 8 GM HFA.AER.AD IH PRN (09:30)
[2022-01-14] MEDS: FUROSEMIDE 40 MG TABLET PO SCH (09:39)
[2022-01-14] MEDS: FERROUS SULFATE (325 MG) 325 MG/TAB TABLET PO SCH ×2 (09:39→17:04)
[2022-01-14] MEDS: METOPROLOL SUCCINATE 25 MG TAB.SR.24H PO SCH ×2 (09:39→17:07)
[2022-01-14] MEDS: GABAPENTIN 100 MG CAPSULE PO SCH ×2 (09:39→17:04)
[2022-01-14] MEDS: MULTIVITAMINS,THERAGRAN 1 UDTAB TABLET PO SCH (09:39)
[2022-01-14] MEDS: DOCUSATE SODIUM 100 MG CAPSULE PO SCH ×2 (09:39→17:04)
[2022-01-14] MEDS ORDERED: EPOETIN ALFA-EPBX 10,000 UNIT/ML VIAL IV ONE (11:00)
[2022-01-14] MEDS: SEVELAMER CARBONATE 800 MG TABLET PO SCH ×2 (13:22→17:03)
[2022-01-14] MEDS: hydrALAZINE HCL 10 MG TABLET PO SCH ×2 (13:22→21:13)
[2022-01-14] MEDS: CALCIUM ACETATE 667 MG CAP/TAB PO SCH ×2 (13:22→17:04)
[2022-01-14 16:00] VITALS: BP 123/70
[2022-01-14] MEDS ORDERED: APIXABAN 2.5 MG TABLET PO SCH (17:00)
--- NOTE | 2022-01-14 18:27 | NUR ---
MANAGER IN HOME CLOSING NOTES PATIENT ON BED AWAKE AND A/O X4. ON O2 AT 2LPM VIA NASAL CANNULA TOLERATING WELL. NO SOB NOTED. NOT IN DISTRESS. WITH NO COMPLAINTS OF PAIN OR DISCOMFORT AT THIS TIME. ON TELE MONITOR CURRENTLY READING CONTROLLED A-FIB AT 89BPM. WITH IV ACCESS AT RIGHT AC G 20 SALINE LOCKED, PATENT AND INTACT. WITH LEFT UPPER ARM FISTULA FOR HD. DUE MEDS GIVEN. SAFETY MEASURES IN PLACED. CALL LIGHT WITHIN REACH. BED ON LOWEST LOCKED POSITION, SIDE RAILS UP X2. WILL ENDORSE TO NEXT SHIFT FOR ANALIA.
--- NOTE | 2022-01-14 19:35 | NUR ---
BEN DAY ARTIST OPENING NOTE PATIENT RESTING IN BED, ALERT/ORIENTED X 3, PT ABLE TO MAKE NEEDS KNOWN, ARGENTINE SPEAKING. PATIENT STABLE ON 2 LPM OF OXYGEN VIA NASAL CANNULA, NO S/S OF DISTRESS OR SOB NOTED, BREATHING EVEN AND UNLABORED. PATIENT ON EXTERNAL CLINICAL ENGINEER READING CONTROLLED A. FIB, HR: 73. IV ACCESS ON RAC #20G INTACT AND SALINE LOCKED. RAMAN FISTULA NOTED. SAFETY MEASURES IN PLACE: CALL LIGHT WITHIN REACH, SIDE RAILS UP X 2, BED LOCKED IN LOWEST POSITION. PER DAYSHIFT RN, PATIENT AMBULATORY WITH CANE. WILL CONTINUE TO MONITOR PATIENT
[2022-01-14 20:00] VITALS: BP 141/98
[2022-01-14] MEDS: TRAZODONE 50 MG TABLET PO SCH (21:12)
[2022-01-14] MEDS: ACETAMINOPHEN 325 MG TABLET PO PRN (21:12)
[2022-01-14] MEDS: ATORVASTATIN 10 MG TABLET PO SCH (21:13)
[2022-01-14] MEDS: NORTRIPTYLINE HCL 25 MG CAPSULE PO SCH (22:19)
[2022-01-14] MEDS: MIRTAZAPINE 15 MG TABLET PO SCH (22:19)
[2022-01-14 23:53] VITALS: BP 144/70
[2022-01-15 05:00] VITALS: BP 141/83
[2022-01-15] MEDS: hydrALAZINE HCL 10 MG TABLET PO SCH ×3 (06:00→21:00)
--- NOTE | 2022-01-15 06:57 | NUR ---
KNURLING MACHINE OPERATOR CLOSING NOTES PATIENT AWAKE IN BED, ALERT/ORIENTED X 3, PT KOREAN SPEAKING. HEMODIALYSIS NURSE SETTING UP IN ROOM AT THIS TIME, CONSENT SIGNED BY PATIENT. PATIENT STABLE ON 2 LPM OF OXYGEN VIA NASAL CANNULA, NO S/S OF DISTRESS OR SOB NOTED, BREATHING EVEN AND UNLABORED. RAC #20G IV ACCESS INTACT AND SALINE LOCKED. RMAAN FISTULA NOTED WITH BRUISING, PER PATIENT HAPPENED ON WEDNESDAY DURING HIS HEMODIALYSIS, PHOTO TAKEN. MEDICATIONS GIVEN ORDERED, PT NEEDS MET THROUGHOUT SHIFT. SAFETY MEASURES IN PLACE: CALL LIGHT WITHIN REACH, SIDE RAILS UP X 2, BED LOCKED IN LOWEST POSITION. WILL ENDORSE TO DAYSHIFT NURSE FOR CONTINUITY OF CARE
--- NOTE | 2022-01-15 07:05 | NUR ---
RN OPENING NOTE RECEIVED PT IN BED, RESTING COMFORTABLY. NO SIGNS OF RESPIRATORY DISTRESS OR SOB AT THIS TIME. ON NC 2L SATURATING WELL. A/O X3. COSTA RICAN SPEAKING. TELE MONITOR READS A FIB CONTROLLED HR AT 63. SKIN INTACT, BRUISING NOTED ON RAMAN FISTULA. RIGHT AC 20G IV INTACT AND PATENT. DIALYSIS NURSE WITH PT NOW. SAFETY MEASURES: BED LOCKED, LOWEST POSITION, SIDE RAILS UP X2, CALL LIGHT WITHIN REACH. WILL CONTINUE TO MONITOR..
[2022-01-15] MEDS: CALCIUM ACETATE 667 MG CAP/TAB PO SCH ×3 (08:00→17:23)
[2022-01-15] MEDS: SEVELAMER CARBONATE 800 MG TABLET PO SCH ×3 (08:00→17:23)
[2022-01-15] MEDS: FUROSEMIDE 40 MG TABLET PO SCH (09:00)
[2022-01-15] MEDS: METOPROLOL SUCCINATE 25 MG TAB.SR.24H PO SCH ×2 (09:00→17:03)
[2022-01-15] MEDS: AMLODIPINE BESYLATE 10 MG TABLET PO SCH (09:00)
--- NOTE | 2022-01-15 09:19 | NUR ---
RN NOTE PT CURRENTLY UNDERGOING DIALYSIS, WILL ADMINISTER SCHEDULED MEDS ONCE DONE.
--- NOTE | 2022-01-15 09:56 | NUR ---
RN NOTE PHOSLO AND REGAGEL NOT GIVEN. PT WAS UNDERGOING DIALYSIS AND ALREADY ATE.
[2022-01-15] MEDS: MULTIVITAMINS,THERAGRAN 1 UDTAB TABLET PO SCH (10:09)
[2022-01-15] MEDS: DOCUSATE SODIUM 100 MG CAPSULE PO SCH ×2 (10:09→17:03)
[2022-01-15] MEDS: FERROUS SULFATE (325 MG) 325 MG/TAB TABLET PO SCH ×2 (10:10→17:03)
[2022-01-15] MEDS: GABAPENTIN 100 MG CAPSULE PO SCH ×2 (10:10→17:03)
[2022-01-15] MEDS: PANTOPRAZOLE 40 MG TABLET.DR PO SCH (10:10)
[2022-01-15] MEDS: ASPIRIN EC 81 MG TABLET.DR PO SCH (10:10)
[2022-01-15] MEDS: LEVOTHYROXINE SODIUM 100 MCG TABLET PO SCH (10:10)
--- NOTE | 2022-01-15 18:31 | NUR ---
RN CLOSING NOTE PT IN BED AWAKE. A/OX 3. NO SIGNS OF RESPIRATORY DISTRESS OR SOB NOTED. TELE READING A FIB 107 UNCONTROLLED. PT RANGING FROM TACHY 107 WHEN MOVING AROUND AND HR DECREASES INTO THE 60-70S WHEN RESTING. NO C/O PAIN OR DISCOMFORT AT THIS TIME. ALL NEEDS MET AND ALL SCHEDULED MEDS GIVEN. IV IN RIGHT AC 20G INTACT AND PATENT. RAMAN FISTULA HAS SLIGHT BRUISING, DIALYSIS CAME THIS MORNING AND REMOVED 2.5L OF FLUID. . NOTED IN THE CHART. SAFETY MEASURES: CALL LIGHT WITHIN REACH, BED LOCKED IN LOWEST POSITION, SIDE RIALS UP X2. WILL ENDORSE TO MANAGER SURGERY NURSE FOR ANALIA.
--- NOTE | 2022-01-15 19:30 | NUR ---
RN OPENING NOTES RECEIVED PT LAYING IN BED, ASLEEP, AWAKENS TO VERBAL STIMULI. AOx4, ABLE TO MAKE NEEDS KNOWN. NO DISTRESS NOTED. ALL NEEDS MET AT THIS TIME.
[2022-01-15] MEDS: IPRATROPIUM NEB FS 0.5 MG/2.5 ML AMPUL.NEB NEB SCH (20:14)
[2022-01-15 20:51] VITALS: BP 110/66
[2022-01-15] MEDS: ATORVASTATIN 10 MG TABLET PO SCH (21:30)
[2022-01-15] MEDS: TRAZODONE 50 MG TABLET PO SCH (21:30)
[2022-01-15] MEDS: NORTRIPTYLINE HCL 25 MG CAPSULE PO SCH (21:31)
[2022-01-15] MEDS: MIRTAZAPINE 15 MG TABLET PO SCH (21:31)
[2022-01-15] MEDS: MAG HYDROX/AL HYDROX/SIMETH 30 ML UDC PO PRN (21:46)
[2022-01-16] VITALS: BP 141/68
[2022-01-16] MEDS: IPRATROPIUM NEB FS 0.5 MG/2.5 ML AMPUL.NEB NEB SCH ×4 (01:58→19:13)
[2022-01-16 05:00] VITALS: BP 163/74
[2022-01-16] MEDS: hydrALAZINE HCL 10 MG TABLET PO SCH ×3 (05:28→21:00)
--- NOTE | 2022-01-16 06:46 | NUR ---
RN CLOSING NOTES PT LAYING IN BED, ASLEEP, AWAKENS TO VERBAL STIMULI. AOx4, ABLE TO MAKE NEEDS KNOWN. NO DISTRESS NOTED. ALL ORDERS CARRIED OUT. ALL NEEDS MET. PT KEPT CLEAN AND DRY. WILL ENDORSE TO ONCOMING SHIFT FOR ANALIA.
--- NOTE | 2022-01-16 07:15 | NUR ---
RN OPENING NOTE RECEIVED PT IN BED ASLEEP. NO SIGNS OF RESPIRATORY DISTRESS OR SOB NOTED. RESTING COMFORTABLY. TELE MONITOR READING A FIB AT 77. IV IN RAC 20G INTACT AND PATENT, RAMAN AV FISTULA. NO SIGNS OF DISTRESS OF ANY KIND AT THIS TIME. SAFETY CHECKS: BED LOCKED IN LOWEST POSITION, CALL LIGHT WITHIN REACH, SIDE RAILS X2. WILL CONTINUE TO MONITOR.
[2022-01-16 08:00] VITALS: BP 134/92
[2022-01-16] MEDS: SEVELAMER CARBONATE 800 MG TABLET PO SCH ×3 (08:10→18:08)
[2022-01-16] MEDS: LEVOTHYROXINE SODIUM 100 MCG TABLET PO SCH (08:10)
[2022-01-16] MEDS: PANTOPRAZOLE 40 MG TABLET.DR PO SCH (08:10)
[2022-01-16] MEDS: CALCIUM ACETATE 667 MG CAP/TAB PO SCH ×3 (08:10→18:08)
[2022-01-16] MEDS: DOCUSATE SODIUM 100 MG CAPSULE PO SCH ×2 (09:10→17:08)
[2022-01-16] MEDS: FUROSEMIDE 40 MG TABLET PO SCH (09:10)
[2022-01-16] MEDS: FERROUS SULFATE (325 MG) 325 MG/TAB TABLET PO SCH ×2 (09:10→17:08)
[2022-01-16] MEDS: ASPIRIN EC 81 MG TABLET.DR PO SCH (09:10)
[2022-01-16] MEDS: GABAPENTIN 100 MG CAPSULE PO SCH ×2 (09:10→17:08)
[2022-01-16] MEDS: MULTIVITAMINS,THERAGRAN 1 UDTAB TABLET PO SCH (09:10)
[2022-01-16] MEDS: METOPROLOL SUCCINATE 25 MG TAB.SR.24H PO SCH ×2 (09:11→17:09)
[2022-01-16 16:00] VITALS: BP 137/74
[2022-01-16] MEDS: APIXABAN 5 MG TABLET PO SCH (17:08)
[2022-01-16] MEDS: CLONIDINE HCL 0.2MG/24H PTWK 1 EA PATCH TD SCH (17:29)
[2022-01-16] MEDS: ACETAMINOPHEN 325 MG TABLET PO PRN (18:14)
--- NOTE | 2022-01-16 18:47 | NUR ---
RN CLOSING NOTE PT AWAKE IN BED, A/OX3. SOB AND DIZZINESS NOTED, AND STATED BY PT. PT ON 4L NC SATURATING AT 92%. RT NOTIFIED TO COME AND DO BREATHING TREATMENTS. PRODUCTIVE COUGH, CLEAR SPUTUM. TELE MONITOR READS A FIB CONTROLLED AT 88. IV IN RIGHT AC 20G INTACT AND PATENT, RAMAN AV FISTULA SLIGHTLY BRUISED. NOTED IN CHART. ALL SCHEDULED MEDS GIVEN. ALL NEEDS ATTENDED TO. SAFETY CHECKS IN PLACE: BED LOCKED, BED IN LOWEST POSITION, CALL LIGHT WITHIN REACH. WILL ENDORSE TO KITCHEN CHEF NURSE FOR ANALIA.
--- NOTE | 2022-01-16 19:30 | NUR ---
RN OPENING NOTES RECEIVED PT IN BED, ASLEEP, AWAKENS TO VERBAL STIMULI. AOx4, ABLE TO MAKE NEEDS KNOWN. ON NC 2LPM AND TOLERATING WELL. NO SOB NOTED. NO S/SX OF RESPIRATORY DISTRESS NOTED. TELE MONITOR DETECTS AFIB. IV ACCESS IN RAC #20G. IV IS INTACT, PATENT, AND FLUSHING WELL. SAFETY PRECAUTIONS IN PLACE: BED IN LOWEST, LOCKED POSITION,SIDERAILS UPx2, AND BRAKES ON. TABLE AND CALL LIGHT WITHIN REACH. ALL NEEDS MET AT THIS TIME.
[2022-01-16 20:00] VITALS: BP 122/67
[2022-01-16] MEDS: NORTRIPTYLINE HCL 25 MG CAPSULE PO SCH (23:30)
[2022-01-16] MEDS: ATORVASTATIN 10 MG TABLET PO SCH (23:30)
[2022-01-16] MEDS: TRAZODONE 50 MG TABLET PO SCH (23:30)
[2022-01-16] MEDS: MIRTAZAPINE 15 MG TABLET PO SCH (23:30)
[2022-01-16] MEDS ORDERED: ALBUTEROL HALF STRENGTH 1.25 MG/3 ML VIAL.NEB NEB PRN (23:30)
[2022-01-17] MEDS ORDERED: MENTHOL/CETYLPYRD (CEPACOL) 1 LOZ LOZENGE PO PRN (01:00)
--- NOTE | 2022-01-17 01:05 | NUR ---
RN NOTES PATIENT STATED HE HAD SORE THROAT. LONGITUDINAL FLOAT OPERATOR, JOE, MADE AWARE. ORDERED CEPACOL.
[2022-01-17] MEDS: IPRATROPIUM NEB FS 0.5 MG/2.5 ML AMPUL.NEB NEB SCH ×4 (01:30→20:05)
--- NOTE | 2022-01-17 02:16 | NUR ---
CONTACT RASHAD CHAVES, NIECE, WISHES TO BE CONTACTED AT [phone]
[2022-01-17 04:00] VITALS: BP 118/59
[2022-01-17] MEDS: hydrALAZINE HCL 10 MG TABLET PO SCH ×3 (05:00→21:31)
--- NOTE | 2022-01-17 05:02 | NUR ---
RN NOTES DID NOT ADMINISTER HYDRALAZINE SINCE PATIENT HAS DIASTOLIC PRESSURE OF 58.
--- NOTE | 2022-01-17 06:42 | NUR ---
RN CLOSING NOTES PT IN BED, ASLEEP, AWAKENS TO VERBAL STIMULI. AOx3-4, ABLE TO MAKE NEEDS KNOWN. ON NC 2LPM AND TOLERATING WELL. NO SOB NOTED. NO S/SX OF RESPIRATORY DISTRESS NOTED. TELE MONITOR DETECTS AFIB. IV ACCESS IN RFA #20G. IV IS INTACT, PATENT, AND FLUSHING WELL. ALL ORDERS CARRIED OUT. ALL NEEDS MET. PT KEPT CLEAN AND DRY. SAFETY PRECAUTIONS IN PLACE: BED IN LOWEST, LOCKED POSITION,SIDERAILS UPx2, AND BRAKES ON. TABLE AND CALL LIGHT WITHIN REACH. WILL ENDORSE TO ONCOMING SHIFT FOR ANALIA.
--- NOTE | 2022-01-17 07:15 | NUR ---
RN OPENING NOTE RECEIVED PT IN BED ASLEEP. NO SIGNS OF RESPIRATORY DISTRESS OR SOB NOTED. ON 2L O2. BREATHING EVEN AND NONLABORED. IV IN RFA 20G INTACT AND PATENT. RAMAN AV FISTULA. TELE READING A-FIB. SAFETY CHECKS IN PLACE: BED LOCKED IN LOWEST POSITION, SIDE RAILS X3, CALL LIGHT WITHIN REACH. WILL CONTINUE TO MONITOR.
[2022-01-17] MEDS: LEVOTHYROXINE SODIUM 100 MCG TABLET PO SCH (07:30)
[2022-01-17] MEDS: PANTOPRAZOLE 40 MG TABLET.DR PO SCH (07:30)
[2022-01-17 08:00] VITALS: BP 125/72
[2022-01-17] MEDS: APIXABAN 5 MG TABLET PO SCH ×2 (09:00→17:11)
[2022-01-17] MEDS: GABAPENTIN 100 MG CAPSULE PO SCH ×2 (09:00→17:10)
[2022-01-17] MEDS: MULTIVITAMINS,THERAGRAN 1 UDTAB TABLET PO SCH (09:00)
[2022-01-17] MEDS: FERROUS SULFATE (325 MG) 325 MG/TAB TABLET PO SCH ×2 (09:00→17:10)
[2022-01-17] MEDS: ASPIRIN EC 81 MG TABLET.DR PO SCH (09:00)
[2022-01-17] MEDS: FUROSEMIDE 40 MG TABLET PO SCH (09:00)
[2022-01-17] MEDS: DOCUSATE SODIUM 100 MG CAPSULE PO SCH ×2 (09:00→17:10)
[2022-01-17] MEDS: METOPROLOL SUCCINATE 25 MG TAB.SR.24H PO SCH ×2 (09:00→17:10)
[2022-01-17] MEDS: SEVELAMER CARBONATE 800 MG TABLET PO SCH ×3 (09:16→17:09)
[2022-01-17] MEDS: CALCIUM ACETATE 667 MG CAP/TAB PO SCH ×3 (09:16→17:09)
--- NOTE | 2022-01-17 09:19 | NUR ---
RN NOTE PT SCHEDULE FOR DIALYSIS TODAY. WILL HOLD MEDS UNTIL DIALYSIS IS GIVEN.
[2022-01-17 12:00] VITALS: BP 119/67
[2022-01-17 13:32] LABS: BASOPHILS # (AUTO) 0.1 K/uL (0.0-0.2); EOSINOPHILS % (AUTO) 5.2 % (0.0-6.0); HEMATOCRIT 27 % (39-51); HEMOGLOBIN 9.1 g/dL (13.5-17.5); LYMPHOCYTES # (AUTO) 1.2 K/uL (0.8-4.8); LYMPHOCYTES % (AUTO) 12.6 % (20.0-44.0); MEAN CORPUSCULAR HGB CONC 33 g/dl (31.0-36.0); MEAN CORPUSCULAR VOLUME 96 fL (80-96); MONOCYTES % (AUTO) 10.1 % (2.0-12.0); NEUTROPHILS # (AUTO) 6.7 K/uL (1.8-8.9); NEUTROPHILS % (AUTO) 71.1 % (43.0-81.0); PLATELET COUNT (AUTO) 262 K/uL (150-450); RED BLOOD CELL COUNT(AUTO) 2.84 MIL/uL (4.5-6.0); WHITE BLOOD COUNT (AUTO) 9.4 K/uL (4.3-11.0)
[2022-01-17 13:45] LABS: CALCIUM, SERUM 11.2 mg/dL (8.5-10.1); CARBON DIOXIDE 28 mmol/L (21-32); CHLORIDE 96 mmol/L (98-107); CREATININE 6.5 mg/dL (0.6-1.3); GLUCOSE 138 mg/dL (74-106); POTASSIUM 5.1 mmol/L (3.5-5.1); SODIUM SERUM 131 mmol/L (136-145); UREA NITROGEN, BLOOD 65 mg/dL (7-18)
[2022-01-17 16:00] VITALS: BP 122/54
--- NOTE | 2022-01-17 18:58 | NUR ---
RN CLOSING NOTE PT IN BED AWAKE, A/OX4. RESTING COMFORTABLY. NO SIGNS OF RESPIRATORY DISTRESS OR SOB NOTED. ON 2L NC AT 95%. PT HAD DIALYSIS TODAY, 3L TAKEN OUT. TELE MONITOR READING A FIB CONTROLLED AT 80. IV IN RFA 20G INTACT AND PATENT. RAMAN FISTULA WITH DRESSING COVERING, MAY BE REMOVED BEFORE PT GOES TO SLEEP. NO C/O OF PAIN AT THIS TIME. ALL NEEDS MET, ALL SCHEDULED MEDS GIVEN. SAFETY CHECKS IN PLACE: BED LOCKED, BED IN LOWEST POSITION, CALL LIGHT WITHIN REACH, SIDE RAILS UP X3. WILL ENDORSE TO FERTILIZER APPLICATOR FOR ANALIA
--- NOTE | 2022-01-17 19:40 | NUR ---
RN OPENING NOTES RECEIVED PT IN BED, AWAKE. AOx3, ABLE TO MAKE NEEDS KNOWN. ON NC 2LPM AND TOLERATING WELL. NO SOB NOTED. NO S/SX OF RESPIRATORY DISTRESS NOTED. TELE MONITOR DETECTS AFIB. IV ACCESS IN RFA #20G. IV IS INTACT, PATENT, AND FLUSHING WELL. SAFETY PRECAUTIONS IN PLACE: BED IN LOWEST, LOCKED POSITION,SIDERAILS UPx2, AND BRAKES ON. TABLE AND CALL LIGHT WITHIN REACH. ALL NEEDS MET AT THIS TIME.
[2022-01-17 20:00] VITALS: BP 152/69
[2022-01-17] MEDS: NORTRIPTYLINE HCL 25 MG CAPSULE PO SCH (21:29)
[2022-01-17] MEDS: MIRTAZAPINE 15 MG TABLET PO SCH (21:30)
[2022-01-17] MEDS: TRAZODONE 50 MG TABLET PO SCH (21:30)
[2022-01-17] MEDS: ATORVASTATIN 10 MG TABLET PO SCH (21:30)
[2022-01-18] VITALS (7 sets, daily range): BP systolic 120–133; BP diastolic 57–88
[2022-01-18] MEDS: IPRATROPIUM NEB FS 0.5 MG/2.5 ML AMPUL.NEB NEB SCH ×4 (01:59→20:14)
[2022-01-18] MEDS: ALBUTEROL HALF STRENGTH 1.25 MG/3 ML VIAL.NEB NEB SCH ×4 (01:59→20:14)
[2022-01-18] MEDS: hydrALAZINE HCL 10 MG TABLET PO SCH ×3 (05:21→21:00)
--- NOTE | 2022-01-18 07:02 | NUR ---
RN CLOSING NOTES PT IN BED, AWAKE. AOx3, ABLE TO MAKE NEEDS KNOWN. ON NC 2LPM AND TOLERATING WELL. NO SOB NOTED. NO S/SX OF RESPIRATORY DISTRESS NOTED. TELE MONITOR DETECTS AFIB. IV ACCESS IN RFA #20G. IV IS INTACT, PATENT, AND FLUSHING WELL. ALL ORDERS CARRIED OUT. ALL NEEDS MET. PT KEPT CLEAN AND DRY. SAFETY PRECAUTIONS IN PLACE: BED IN LOWEST, LOCKED POSITION,SIDERAILS UPx2, AND BRAKES ON. TABLE AND CALL LIGHT WITHIN REACH. WILL ENDORSE TO ONCOMING SHIFT FOR ANALIA.
--- NOTE | 2022-01-18 07:15 | NUR ---
DERRICK BOAT LEVERMAN OPENING NOTES: PATIENT AWAKE, ALERT AND ORIENTED X 4 MAURITANIAN SPEAKING. NO SOB OR CRDIAC DISTRESS NOTED ON O2 INHALATION @2LPM VIA NC AND TOLERATING WELL. ON POINT OF CARE TECHNICIAN WITH CURRENT READING OF CONTROLLED A.FIB HR 70S TO 80S. IV ACCESS ON RFA G#20 PATENT AND INTACT AND SALINE LOCKED. KEPT RESTED AND COMFORTABLE.SAFETY PRECAUTIONS MAINTAINED: BED LOCKED AND IN LOWEST POSITION, SIDE RAILS UP X 2. CALL LIGHT IN EASY REACH FOR HELP. WILL MONITOR PT ACCORDINGLY.
[2022-01-18] MEDS: LEVOTHYROXINE SODIUM 100 MCG TABLET PO SCH (07:39)
[2022-01-18] MEDS: PANTOPRAZOLE 40 MG TABLET.DR PO SCH (07:39)
[2022-01-18] MEDS: ASPIRIN EC 81 MG TABLET.DR PO SCH (08:37)
[2022-01-18] MEDS: SEVELAMER CARBONATE 800 MG TABLET PO SCH ×3 (08:37→17:08)
[2022-01-18] MEDS: CALCIUM ACETATE 667 MG CAP/TAB PO SCH ×3 (08:37→17:08)
[2022-01-18] MEDS: METOPROLOL SUCCINATE 25 MG TAB.SR.24H PO SCH ×2 (08:38→17:05)
[2022-01-18] MEDS: GABAPENTIN 100 MG CAPSULE PO SCH ×2 (08:38→17:01)
[2022-01-18] MEDS: FUROSEMIDE 40 MG TABLET PO SCH (08:38)
[2022-01-18] MEDS: DOCUSATE SODIUM 100 MG CAPSULE PO SCH ×2 (08:38→17:01)
[2022-01-18] MEDS: MULTIVITAMINS,THERAGRAN 1 UDTAB TABLET PO SCH (08:38)
[2022-01-18] MEDS: FERROUS SULFATE (325 MG) 325 MG/TAB TABLET PO SCH ×2 (08:38→17:01)
[2022-01-18] MEDS: APIXABAN 5 MG TABLET PO SCH ×2 (08:40→17:04)
[2022-01-18] MEDS ORDERED: EPOETIN ALFA (10,000 UNIT) 10,000 UNIT/ML VIAL IV ONE (09:00)
[2022-01-18] MEDS: ACETAMINOPHEN 325 MG TABLET PO PRN (13:09)
--- NOTE | 2022-01-18 18:39 | NUR ---
KITCHEN CLERK CLOSING NOTES: PATIENT AWAKE, ALERT AND ORIENTED X 4 DANISH SPEAKING. NO SOB OR CARDIAC DISTRESS NOTED ON O2 INHALATION @2LPM VIA NC AND TOLERATING WELL. ON POULTRY RAISER WITH CURRENT READING OF CONTROLLED A.FIB HR 70S TO 63BPM . IV ACCESS ON RFA G#20 PATENT AND INTACT AND SALINE LOCKED. KEPT RESTED AND COMFORTABLE.SAFETY PRECAUTIONS MAINTAINED: BED LOCKED AND IN LOWEST POSITION, SIDE RAILS UP X 2. CALL LIGHT IN EASY REACH FOR HELP. WILL MONITOR PT ACCORDINGLY. WILL ENDORSED TO NOC SHIFT FOR ANALIA.
--- NOTE | 2022-01-18 19:35 | NUR ---
AREA FIELD WORKER OPENING NOTES PATIENT RECEIVED RESTING IN BED COMFORTABLY, A/OX4, BREATHING SLIGHTLY LABORED; PATIENT ON 3LPM VIA NASAL CANNULA, WHEEZING NOTED; HOB ELEVATED FOR COMFORT; RT IS AWARE; PATIENT HAS SCHEDULED BREATHING TXS THROUGHOUT SHIFT, PATIENT AWARE; TELE MONITOR READS CONTROLLED A.FIB 69BPM; R FA #20G, RAMAN FISTULA NOTED; SAFETY PRECAUTIONS IMPLEMENTED; BED LOCKED IN LOW POSITION; SIDE RAILSX2, CALL LIGHT WITHIN EASY REACH, BED ALARM ON; WILL CONT PLAN OF CARE
[2022-01-18] MEDS: NORTRIPTYLINE HCL 25 MG CAPSULE PO SCH (22:17)
[2022-01-18] MEDS: TRAZODONE 50 MG TABLET PO SCH (22:17)
[2022-01-18] MEDS: ATORVASTATIN 10 MG TABLET PO SCH (22:18)
[2022-01-18] MEDS: MIRTAZAPINE 15 MG TABLET PO SCH (22:20)
[2022-01-19] VITALS (11 sets, daily range): BP systolic 106–133; BP diastolic 52–91
[2022-01-19] MEDS: ALBUTEROL HALF STRENGTH 1.25 MG/3 ML VIAL.NEB NEB SCH ×4 (02:06→19:50)
[2022-01-19] MEDS: IPRATROPIUM NEB FS 0.5 MG/2.5 ML AMPUL.NEB NEB SCH ×4 (02:06→19:51)
[2022-01-19] MEDS: hydrALAZINE HCL 10 MG TABLET PO SCH ×3 (05:27→21:31)
--- NOTE | 2022-01-19 06:30 | NUR ---
SHOE TURNER CLOSING NOTES PATIENT RESTING IN BED COMFORTABLY, A/OX4, BREATHING SLIGHTLY LABORED; PATIENT ON 2LPM VIA NASAL CANNULA, WHEEZING NOTED; HOB ELEVATED FOR COMFORT; RT IS AWARE; PATIENT HAS SCHEDULED BREATHING TXS THROUGHOUT SHIFT, PATIENT AWARE; TELE MONITOR READS CONTROLLED A.FIB 70BPM; R FA #20G, RAMAN FISTULA NOTED; SAFETY PRECAUTIONS IMPLEMENTED; BED LOCKED IN LOW POSITION; SIDE RAILSX2, CALL LIGHT WITHIN EASY REACH, BED ALARM ON; WILL ENDORSE ANALIA TO ONCOMING SHIFT
--- NOTE | 2022-01-19 07:10 | NUR ---
PROFESSIONAL MODEL OPENING NOTES: RECEIVED PATIENT IN BED AWAKE, ALERT AND ORIENTED X3-4 GEORGIAN SPEAKING. NOTED WITH WHEEZING AND NOTED WITH ONGOING BREATHING TREATMENT. REPOSITIONED PATIENT ON HIGH FOWLERS. AND PATIENT VERBALIZED RELIEF.ON SWAGE TOOLSETTER CURRENT READING CONTROLLED A.FIB 67BPM. IV ACCESS ON RFA G#20 PATENT AND INTACT SALINE LOCKED. SAFETY PRECAUTIONS MAINTAINED: BED LOCKED AND IN LOWEST POSITION, SIDE RAILS UP X2. CALL LIGHT IN EASY REACH FOR HELP. WILL MONITOR PATIENT ACCORDINGLY.
[2022-01-19] MEDS: LEVOTHYROXINE SODIUM 100 MCG TABLET PO SCH (07:41)
[2022-01-19] MEDS: PANTOPRAZOLE 40 MG TABLET.DR PO SCH (07:41)
[2022-01-19] MEDS: CALCIUM ACETATE 667 MG CAP/TAB PO SCH ×3 (07:41→17:38)
[2022-01-19] MEDS: SEVELAMER CARBONATE 800 MG TABLET PO SCH ×3 (07:42→17:38)
[2022-01-19] MEDS: GABAPENTIN 100 MG CAPSULE PO SCH ×2 (08:57→17:15)
[2022-01-19] MEDS: FUROSEMIDE 40 MG TABLET PO SCH (08:57)
[2022-01-19] MEDS: MULTIVITAMINS,THERAGRAN 1 UDTAB TABLET PO SCH (08:57)
[2022-01-19] MEDS: FERROUS SULFATE (325 MG) 325 MG/TAB TABLET PO SCH ×2 (08:57→17:15)
[2022-01-19] MEDS: ASPIRIN EC 81 MG TABLET.DR PO SCH (08:57)
[2022-01-19] MEDS: DOCUSATE SODIUM 100 MG CAPSULE PO SCH ×2 (08:57→17:15)
[2022-01-19] MEDS: APIXABAN 5 MG TABLET PO SCH ×2 (08:58→17:16)
[2022-01-19] MEDS: METOPROLOL SUCCINATE 25 MG TAB.SR.24H PO SCH ×2 (09:00→17:37)
--- NOTE | 2022-01-19 12:19 | NUR ---
RN NOTES: S/P HD, PATIENT ASLEEP. VS WNL. OUTPUT:1.5LITERS.
--- NOTE | 2022-01-19 18:51 | NUR ---
WEIGHT LOSS CONSULTANT CLOSING NOTES: PATIENT IN BED AWAKE, ALERT AND ORIENTED X3-4 INDONESIAN SPEAKING. NO SOB OR CARDIAC DISTRESS NOTED. S/P HD OUTPUT 1.5 LITER. ON ROLL OUT MANAGER STAND BY, LIFE VEST ON. IV ACCESS ON RFA G#20 PATENT AND INTACT SALINE LOCKED. SAFETY PRECAUTIONS MAINTAINED: BED LOCKED AND IN LOWEST POSITION, SIDE RAILS UP X2. CALL LIGHT IN EASY REACH FOR HELP. WILL MONITOR PATIENT ACCORDINGLY.ENDORSED TO NOC SHIFT FOR ANALIA.
--- NOTE | 2022-01-19 19:10 | NUR ---
RN OPENING NOTE RECEIVED PT IN BED, RESTING COMFORTABLY. NO SIGNS OF RESPIRATORY DISTRESS OR SOB NOTED. TELE MONITOR READING CONTROLLED A-FIB. ON NC 2L. R FA 20G SL INTACT AND PATENT. RAMAN FISTULA. LIFEVEST ON PT. SAFETY CHECKS IN PLACE: BED LOCKED, BED IN LOWEST POSITION, SIDE RAILS UP X3, CALL LIGHT WITHIN REACH. WILL CONT PLAN OF CARE.
[2022-01-19] MEDS: TRAZODONE 50 MG TABLET PO SCH (21:30)
[2022-01-19] MEDS: MIRTAZAPINE 15 MG TABLET PO SCH (21:30)
[2022-01-19] MEDS: NORTRIPTYLINE HCL 25 MG CAPSULE PO SCH (21:31)
[2022-01-19] MEDS: ATORVASTATIN 10 MG TABLET PO SCH (21:31)
[2022-01-20] VITALS: BP 116/72
[2022-01-20] MEDS: IPRATROPIUM NEB FS 0.5 MG/2.5 ML AMPUL.NEB NEB SCH ×4 (02:27→20:22)
[2022-01-20] MEDS: ALBUTEROL HALF STRENGTH 1.25 MG/3 ML VIAL.NEB NEB SCH ×4 (02:27→20:22)
[2022-01-20 04:00] VITALS: BP 120/70
[2022-01-20] MEDS: hydrALAZINE HCL 10 MG TABLET PO SCH ×3 (04:32→21:06)
--- NOTE | 2022-01-20 06:54 | NUR ---
RN CLOSING NOTE PT IN BED, RESTING COMFORTABLY. NO SIGNS OF RESPIRATORY DISTRESS OR SOB NOTED. TELE MONITOR READING CONTROLLED A-FIB 78BPM. ON NC 2L. R FA 20G SL INTACT AND PATENT. RAMAN FISTULA. LIFEVEST ON PT. SAFETY CHECKS IN PLACE: BED LOCKED, BED IN LOWEST POSITION, SIDE RAILS UP X3, CALL LIGHT WITHIN REACH. WILL ENDORSE TO DIRECTOR ORANGE FOR ANALIA. .
[2022-01-20 07:01] LABS: BASOPHILS % (AUTO) 0.6 % (0.0-2.0); EOSINOPHILS % (AUTO) 7.1 % (0.0-6.0); HEMATOCRIT 33 % (39-51); HEMOGLOBIN 10.6 g/dL (13.5-17.5); LYMPHOCYTES # (AUTO) 1.4 K/uL (0.8-4.8); LYMPHOCYTES % (AUTO) 17.8 % (20.0-44.0); MEAN CORPUSCULAR HGB CONC 32 g/dl (31.0-36.0); MEAN CORPUSCULAR VOLUME 96 fL (80-96); MONOCYTES # (AUTO) 0.8 K/uL (0.1-1.30); MONOCYTES % (AUTO) 10.4 % (2.0-12.0); NEUTROPHILS # (AUTO) 5.2 K/uL (1.8-8.9); NEUTROPHILS % (AUTO) 64.1 % (43.0-81.0); PLATELET COUNT (AUTO) 288 K/uL (150-450); RED BLOOD CELL COUNT(AUTO) 3.42 MIL/uL (4.5-6.0)
[2022-01-20 07:13] LABS: CALCIUM, SERUM 10.5 mg/dL (8.5-10.1); CARBON DIOXIDE 27 mmol/L (21-32); CHLORIDE 96 mmol/L (98-107); GLUCOSE 83 mg/dL (74-106); POTASSIUM 4.8 mmol/L (3.5-5.1); SODIUM SERUM 133 mmol/L (136-145); UREA NITROGEN, BLOOD 40 mg/dL (7-18)
[2022-01-20 08:00] VITALS: BP 109/65
[2022-01-20] MEDS: METOPROLOL SUCCINATE 25 MG TAB.SR.24H PO SCH ×2 (09:00→18:11)
[2022-01-20] MEDS: MULTIVITAMINS,THERAGRAN 1 UDTAB TABLET PO SCH (11:07)
[2022-01-20] MEDS: FUROSEMIDE 40 MG TABLET PO SCH (11:07)
[2022-01-20] MEDS: FERROUS SULFATE (325 MG) 325 MG/TAB TABLET PO SCH ×2 (11:07→18:10)
[2022-01-20] MEDS: GABAPENTIN 100 MG CAPSULE PO SCH ×2 (11:07→18:11)
[2022-01-20] MEDS: DOCUSATE SODIUM 100 MG CAPSULE PO SCH ×2 (11:07→18:11)
[2022-01-20] MEDS: ASPIRIN EC 81 MG TABLET.DR PO SCH (11:07)
[2022-01-20] MEDS: APIXABAN 5 MG TABLET PO SCH ×2 (11:09→18:46)
[2022-01-20] MEDS: PANTOPRAZOLE 40 MG TABLET.DR PO SCH (11:15)
[2022-01-20] MEDS: LEVOTHYROXINE SODIUM 100 MCG TABLET PO SCH (11:15)
[2022-01-20] MEDS: HYDROCODONE/APAP 5/325MG TABLET PO PRN ×2 (11:16→18:10)
[2022-01-20] MEDS: CALCIUM ACETATE 667 MG CAP/TAB PO SCH ×3 (11:22→18:10)
[2022-01-20] MEDS: SEVELAMER CARBONATE 800 MG TABLET PO SCH ×3 (11:22→18:11)
--- NOTE | 2022-01-20 13:01 | NUR ---
RN/NOTE PATIENT'S MEDICATION WAS HELD HE IS CURRENTLY HAVING HD.
[2022-01-20] MEDS: ALBUMIN 25% 25 GM in PREMIX 1 EA IV PRN (13:39)
--- NOTE | 2022-01-20 13:47 | NUR ---
RN/NOTE PHARMACY WAS CALLED FOR ALBUMIN FOR THE PATIENT IT WAS REQUESTED BY THE HD NURSE.
--- NOTE | 2022-01-20 13:50 | NUR ---
RN/NOTE DOCTOR WAS NOTIFIED OF PATIENT'S BLOOD PRESSURE BEING LOW AND HE ORDERED ALBUMIN. I CALLED PHARMACY AND WENT TO WIND SITE MANAGER THE MEDICATION.
[2022-01-20] MEDS: MIDODRINE HCL (5MG) 5 MG TABLET PO SCH ×2 (14:00→17:00)
[2022-01-20 16:00] VITALS: BP 130/56
[2022-01-20] MEDS: MAG HYDROX/AL HYDROX/SIMETH 30 ML UDC PO PRN (18:10)
[2022-01-20 18:33] LABS: ABG BASE EXCESS 1.9 mmol/L; ABG OXYGEN SATURATION 93.1 % (92.0-98.5); ABG PCO2 35.3 mmHg (35.0-45.0); ABG PH 7.473 (7.350-7.450); ABG PO2 70.5 mmHg (75.0-100.0); AaDO2 145.2 mmHg; COHb 0.8 % (0.5-1.5); MetHb 0.3 % (0.0-1.5); O2Hb 92.1 % (94.0-97.0); SITE, ABG Right Radial; VENT MODE, BG 4L NC
--- NOTE | 2022-01-20 19:36 | NUR ---
HOME HEALTH LPN OPENING NOTES PATIENT RECEIVED RESTING IN BED COMFORTABLY, A/OX4, BREATHING SLIGHTLY LABORED; PATIENT ON 3LPM VIA NASAL CANNULA; HOB ELEVATED FOR COMFORT; RT IS AWARE; PATIENT HAS SCHEDULED BREATHING TXS THROUGHOUT SHIFT, PATIENT AWARE; TELE MONITOR ON STAND BY; PATIENT HAS LIFE VEST ON; R FA #20G, RAMAN FISTULA NOTED; SAFETY PRECAUTIONS IMPLEMENTED; BED LOCKED IN LOW POSITION; SIDE RAILSX2, CALL LIGHT WITHIN EASY REACH, BED ALARM ON; WILL CONT PLAN OF CARE
--- NOTE | 2022-01-20 19:45 | NUR ---
RN/NOTE REPORT WAS GIVEN TO THE NIGHT RN. PATIENT WAS STABLE, ALL VSS WNL, NO SIGNS OF DISTRESS. ALL QUESTIONS HAVE BEEN ANSWERED.
[2022-01-20 20:00] VITALS: BP 142/94
[2022-01-20] MEDS: TRAZODONE 50 MG TABLET PO SCH (21:05)
[2022-01-20] MEDS: ATORVASTATIN 10 MG TABLET PO SCH (21:05)
[2022-01-20] MEDS: MIRTAZAPINE 15 MG TABLET PO SCH (21:05)
[2022-01-20] MEDS: NORTRIPTYLINE HCL 25 MG CAPSULE PO SCH (21:06)
--- NOTE | 2022-01-20 21:10 | NUR ---
DOUGHNUT DOUGH MIXER NOTE MED WASTE WITNESSED BY MARQUES ROMERO
[2022-01-21] VITALS: BP 123/78
[2022-01-21] MEDS: ALBUTEROL HALF STRENGTH 1.25 MG/3 ML VIAL.NEB NEB SCH ×4 (02:21→20:06)
[2022-01-21] MEDS: IPRATROPIUM NEB FS 0.5 MG/2.5 ML AMPUL.NEB NEB SCH ×4 (02:21→20:06)
[2022-01-21 04:00] VITALS: BP 125/61
[2022-01-21] MEDS: hydrALAZINE HCL 10 MG TABLET PO SCH ×3 (05:00→21:14)
--- NOTE | 2022-01-21 05:02 | NUR ---
CLINIC MGR NOTE PATIENT BP 125/61; PATIENT HR FLUCTUATING AND PATIENT HAS HEMODIALYSIS LATER TODAY, UNKNOWN WHAT TIME PATIENT WILL RECEIVED HD. PER CHARGE, HOLD BP MED SINCE HD IS SCHEDULED FOR LATER TODAY, POSSIBLE 0800.
--- NOTE | 2022-01-21 07:50 | NUR ---
BED SPRING MAKER OPENING NOTE Patient in bed, awake. A/O x 3, able to make needs known; mainly Comoran speaking. On O2 at 2 LPM, no SOB or s/s of distress noted. IV access on RFA #22 SL, intact and patent. RAMAN fistula noted. On tele monitoring showing controlled Afib, HR 95. Safety precautions in place: bed in low, locked position; siderailsup x 2; call light within reach. Will continue to monitor.
[2022-01-21 08:00] VITALS: BP 115/67
[2022-01-21] MEDS: SEVELAMER CARBONATE 800 MG TABLET PO SCH ×3 (08:20→17:09)
[2022-01-21] MEDS: PANTOPRAZOLE 40 MG TABLET.DR PO SCH (08:20)
[2022-01-21] MEDS: LEVOTHYROXINE SODIUM 100 MCG TABLET PO SCH (08:21)
[2022-01-21] MEDS: CALCIUM ACETATE 667 MG CAP/TAB PO SCH ×3 (08:21→17:09)
[2022-01-21] MEDS: ASPIRIN EC 81 MG TABLET.DR PO SCH (08:53)
[2022-01-21] MEDS: FUROSEMIDE 40 MG TABLET PO SCH (08:53)
[2022-01-21] MEDS: FERROUS SULFATE (325 MG) 325 MG/TAB TABLET PO SCH ×2 (08:53→17:09)
[2022-01-21] MEDS: MULTIVITAMINS,THERAGRAN 1 UDTAB TABLET PO SCH (08:53)
[2022-01-21] MEDS: DOCUSATE SODIUM 100 MG CAPSULE PO SCH ×2 (08:53→17:09)
[2022-01-21] MEDS: GABAPENTIN 100 MG CAPSULE PO SCH ×2 (08:53→17:09)
[2022-01-21] MEDS: METOPROLOL SUCCINATE 25 MG TAB.SR.24H PO SCH ×2 (08:54→17:09)
[2022-01-21] MEDS: APIXABAN 5 MG TABLET PO SCH ×2 (08:56→17:10)
[2022-01-21 16:00] VITALS: BP 120/66
[2022-01-21 20:00] VITALS: BP 139/54
--- NOTE | 2022-01-21 20:02 | NUR ---
SHEARER PRINTED CIRCUIT BOARDS CLOSING NOTE Patient in bed, sleeping. A/O x 3, able to make needs known; mainly Chadian speaking. On O2 at 2 LPM, no SOB or s/s of distress noted. IV access on RFA #22 SL, intact and patent. RAMAN fistula noted. On tele monitoring showing controlled Afib, HR 78. All needs attended to. Due meds given. Safety precautions in place: bed in low, locked position; siderailsup x 2; call light within reach. Will endorse to cage shift manager nurse for ANALIA.
--- NOTE | 2022-01-21 20:10 | NUR ---
LOAN EXPEDITOR OPENING NOTE Patient in bed, sleeping. A/O x 3, able to make needs known; mainly Citizen Of [place] speaking. On O2 at 2 LPM, no SOB or s/s of distress noted. IV access on RFA #22 SL, intact and patent. RAMAN fistula noted. On tele monitoring showing controlled Afib, HR 78. life vest on at this time.All needs attended to. Safety precautions in place: bed in low, locked position; side rails up x 2; call light within reach.
[2022-01-21] MEDS: NORTRIPTYLINE HCL 25 MG CAPSULE PO SCH (21:14)
[2022-01-21] MEDS: ATORVASTATIN 10 MG TABLET PO SCH (21:14)
[2022-01-21] MEDS: TRAZODONE 50 MG TABLET PO SCH (21:14)
[2022-01-21] MEDS: MIRTAZAPINE 15 MG TABLET PO SCH (21:14)
[2022-01-22] VITALS: BP 142/66
[2022-01-22] MEDS: IPRATROPIUM NEB FS 0.5 MG/2.5 ML AMPUL.NEB NEB SCH ×4 (01:51→20:18)
[2022-01-22] MEDS: ALBUTEROL HALF STRENGTH 1.25 MG/3 ML VIAL.NEB NEB SCH ×4 (01:51→20:18)
[2022-01-22 05:00] VITALS: BP 123/51
[2022-01-22] MEDS: hydrALAZINE HCL 10 MG TABLET PO SCH ×3 (05:00→22:05)
--- NOTE | 2022-01-22 05:17 | NUR ---
DIRECTOR INTERNAL CONTROL NOTE BP MED HELD HAS AND BP FLUCTUATING.HEMODIALYSIS LATER TODAY, UNKNOWN WHAT TIME PATIENT WILL RECEIVED HD. HD IS SCHEDULED FOR TODAY.
--- NOTE | 2022-01-22 06:52 | NUR ---
MECHANICAL INTEGRITY SPECIALIST closing NOTE Patient in bed, sleeping. A/O x 3, able to make needs known; mainly Northern Irish speaking. On O2 at 2 LPM, no SOB or s/s of distress noted. IV access on RFA #22 SL, intact and patent. RAMAN fistula noted. On tele monitoring showing controlled Afib, HR 78. life vest on at this time.All needs attended to. Safety precautions in place: bed in low, locked position; side rails up x 2; call light within reach. life vest on battery fully charged. other battery charging.pt for dialysis today.
--- NOTE | 2022-01-22 07:30 | NUR ---
DETECTIVE PRECINCT OPENING NOTES: RECEIVED PATIENT IN BED AWAKE, ARMENIAN SPEAKING A/O X3. PATIENT NOTED WITH SLIGHT SOB. ON TELE STAND BY WITH LIFE VEST ON. ON O2 @2LPM VIA NASAL CANNULA. NOTED WITH RFA IV ACCESS GAUGE 22 PATENT, INTACT AND SALINE LOCKED. RAMAN HD FISTULA. SAFETY PRECAUTIONS MAINTAINED: BED LOCKED AND IN LOWEST POSITION, SIDE RAILS UP X 2. CALL LIGHT IN EASY REACH FOR HELP. WILL MONITOR PT ACCORDINGLY.
[2022-01-22] MEDS: LEVOTHYROXINE SODIUM 100 MCG TABLET PO SCH (07:40)
[2022-01-22] MEDS: PANTOPRAZOLE 40 MG TABLET.DR PO SCH (07:40)
[2022-01-22] MEDS: SEVELAMER CARBONATE 800 MG TABLET PO SCH ×3 (07:40→17:52)
[2022-01-22] MEDS: CALCIUM ACETATE 667 MG CAP/TAB PO SCH ×3 (07:40→17:53)
[2022-01-22 08:00] VITALS: BP 145/72
[2022-01-22] MEDS: MULTIVITAMINS,THERAGRAN 1 UDTAB TABLET PO SCH (08:51)
[2022-01-22] MEDS: ASPIRIN EC 81 MG TABLET.DR PO SCH (08:51)
[2022-01-22] MEDS: APIXABAN 5 MG TABLET PO SCH ×2 (08:51→17:54)
[2022-01-22] MEDS: DOCUSATE SODIUM 100 MG CAPSULE PO SCH ×2 (08:51→17:52)
[2022-01-22] MEDS: GABAPENTIN 100 MG CAPSULE PO SCH ×2 (08:51→17:53)
[2022-01-22] MEDS: FERROUS SULFATE (325 MG) 325 MG/TAB TABLET PO SCH ×2 (08:51→17:52)
[2022-01-22] MEDS: FUROSEMIDE 40 MG TABLET PO SCH (08:51)
[2022-01-22] MEDS: METOPROLOL SUCCINATE 25 MG TAB.SR.24H PO SCH ×2 (09:00→17:00)
--- NOTE | 2022-01-22 09:32 | NUR ---
RN NOTES: PATIENT FOR HD. BP MEDS NOT GIVEN.
[2022-01-22 12:00] VITALS: BP 133/76
--- NOTE | 2022-01-22 12:03 | NUR ---
RN NOTES: SEEN AND EXAMINED BY ST, PT WILL BE ON MECHANICAL SOFT GROUND AND NECTAR THICK LIQUID. ANDIE (NIECE)MADE AWARE.
[2022-01-22] MEDS ORDERED: LIDOCAINE/PRILOCAINE (5GM) 5 GM TUBE TP PRN (12:30)
--- NOTE | 2022-01-22 12:36 | NUR ---
RN NOTES: EMLA APPLIED TO RAMAN HD ACCESS. PATIENT STARTED ON HD WITH EUN GREEN. PT STABLE.
[2022-01-22 16:00] VITALS: BP 100/65
--- NOTE | 2022-01-22 18:58 | NUR ---
MEDICAL APPARATUS MODEL MAKER CLOSING NOTES: PATIENT AWAKE, ABLE TO MAKE NEEDS KNOWN. S/O X3 CYMRO SPEAKING. ON TELE STANDBY WITH LIFE VEST ON, BATTERY ON FUNCTIONING WELL. S/P HD 3L OUT HD ACCESS ON RAMAN FISTULA, PATIENT STABLE. IV ACCESS ON RFA G22 PATENT, INTACT AND SALINE LOCKED. SAFETY MEASURES MAINTAINED: BED LOCKED AND IN LOWEST POSITION, SIDE RAILS UP X 2. CALL LIGHT IN EASY REACH FOR HELP. WILL NONITOR ACCORDINGLY. ENDORSED TO [facility] SHIFT NURSE FOR ANALIA.
--- NOTE | 2022-01-22 19:42 | NUR ---
RN OPENING NOTE PATIENT IN BED, AWAKE. PATIENT IS ABLE TO MAKE NEEDS KNOWN. A/O X 3 AT THIS TIMES. ON 2 LPM VIA NC, TOLERATING WELL. NO SOB AT THIS TIME. PATIENT HAS A LIFEVEST ON, WORKING WELL. PATIENT HAS A RFA 22 G PATENT AND INTACT, FLUSHING WELL. PATIENT DOES NOT REPORT ANY PAIN AT THIS TIME. PATIENT NOT IN ANY APPARENT DISTRESS. SAFETY MEASURES IN PLACE: BED LOCKED AND IN LOWEST POSITION, CALL LIGHT WITHIN REACH, SIDE RAILS UP. WILL MONITOR PATIENT CLOSELY.
[2022-01-22 20:00] VITALS: BP_SYST 114; BP_SYST 126; BP_DIAS 73; BP_DIAS 89
[2022-01-22] MEDS: TRAZODONE 50 MG TABLET PO SCH (22:06)
[2022-01-22] MEDS: NORTRIPTYLINE HCL 25 MG CAPSULE PO SCH (22:07)
[2022-01-22] MEDS: ATORVASTATIN 10 MG TABLET PO SCH (22:07)
[2022-01-22] MEDS: MIRTAZAPINE 15 MG TABLET PO SCH (22:07)
[2022-01-23] VITALS: BP 101/57
[2022-01-23] MEDS: IPRATROPIUM NEB FS 0.5 MG/2.5 ML AMPUL.NEB NEB SCH ×4 (00:54→20:16)
[2022-01-23] MEDS: ALBUTEROL HALF STRENGTH 1.25 MG/3 ML VIAL.NEB NEB SCH ×4 (00:54→20:16)
[2022-01-23 04:48] VITALS: BP 126/67
[2022-01-23] MEDS: hydrALAZINE HCL 10 MG TABLET PO SCH ×3 (05:00→21:54)
--- NOTE | 2022-01-23 05:07 | NUR ---
RN NOTE HYDRALAZINE NOT GIVEN, PATIENT SCHEDULED FOR DIALYSIS AT 0700.
--- NOTE | 2022-01-23 06:57 | NUR ---
RN CLOSING NOTE PATIENT IN BED, EYES CLOSED. PATIENT IS ABLE TO MAKE NEEDS KNOWN. A/O X 3 AT THIS TIMES. ON 2 LPM VIA NC, TOLERATING WELL. NO SOB AT THIS TIME. PATIENT HAS A LIFEVEST ON, WORKING WELL, CHANGED THE BATTERY AT 0630. PATIENT HAS A RFA 22 G PATENT AND INTACT, FLUSHING WELL. PATIENT DOES NOT REPORT ANY PAIN AT THIS TIME. PATIENT NOT IN ANY APPARENT DISTRESS. SAFETY MEASURES IN PLACE: BED LOCKED AND IN LOWEST POSITION, CALL LIGHT WITHIN REACH, SIDE RAILS UP. ALL NEEDS MET AND ATTENDED. ALL ORDERS CARRIED OUT. WILL ENDORSE TO DAY SHIFT NURSE FOR ANALIA.
--- NOTE | 2022-01-23 07:20 | NUR ---
telecom network manager OPENING NOTE: RECEIVED PATIENT IN BED, AWAKE. PATIENT IS ABLE TO MAKE NEEDS KNOWN. A/O X 3 AT THIS TIMES. ON 2 LPM VIA NC, TOLERATING WELL. NO SOB AT THIS TIME. PATIENT HAS A LIFEVEST ON, WORKING WELL. PATIENT HAS A RFA 22 G PATENT AND INTACT, FLUSHING WELL. PATIENT DOES NOT REPORT ANY PAIN AT THIS TIME. PATIENT NOT IN ANY APPARENT DISTRESS. SAFETY MEASURES IN PLACE: BED LOCKED AND IN LOWEST POSITION, CALL LIGHT WITHIN REACH, SIDE RAILS UP. WILL MONITOR PATIENT CLOSELY.
[2022-01-23] MEDS: LEVOTHYROXINE SODIUM 100 MCG TABLET PO SCH (07:48)
[2022-01-23] MEDS: PANTOPRAZOLE 40 MG TABLET.DR PO SCH (07:48)
[2022-01-23 08:00] VITALS: BP 118/71
[2022-01-23] MEDS: SEVELAMER CARBONATE 800 MG TABLET PO SCH ×3 (08:12→17:15)
[2022-01-23] MEDS: CALCIUM ACETATE 667 MG CAP/TAB PO SCH ×3 (08:12→17:15)
[2022-01-23] MEDS: DOCUSATE SODIUM 100 MG CAPSULE PO SCH ×2 (08:51→17:15)
[2022-01-23] MEDS: GABAPENTIN 100 MG CAPSULE PO SCH ×2 (08:51→17:15)
[2022-01-23] MEDS: FERROUS SULFATE (325 MG) 325 MG/TAB TABLET PO SCH ×2 (08:51→17:15)
[2022-01-23] MEDS: FUROSEMIDE 40 MG TABLET PO SCH (08:51)
[2022-01-23] MEDS: ASPIRIN EC 81 MG TABLET.DR PO SCH (08:52)
[2022-01-23] MEDS: MULTIVITAMINS,THERAGRAN 1 UDTAB TABLET PO SCH (08:52)
[2022-01-23] MEDS: APIXABAN 5 MG TABLET PO SCH ×2 (08:53→17:17)
[2022-01-23] MEDS: METOPROLOL SUCCINATE 25 MG TAB.SR.24H PO SCH ×2 (09:00→17:00)
--- NOTE | 2022-01-23 09:00 | NUR ---
RN NOTES: PT SEEN BY [facility] TOLERATED WELL. ALSO SPOKE TO DR Judd BP 118/71 AND PT WILL RECEIVE DIALYSIS TODAY WITH ORDER NOT TO GIVE BP MEDS
[2022-01-23 12:00] VITALS: BP 112/60
--- NOTE | 2022-01-23 13:33 | NUR ---
rn notes: spoke to DR Gunn who was on the floor BP 112/62 and pt will receive dialysis today with order to hold apresoline
[2022-01-23] MEDS: CLONIDINE HCL 0.2MG/24H PTWK 1 EA PATCH TD SCH ×2 (14:15→20:30)
[2022-01-23 16:00] VITALS: BP 117/63
--- NOTE | 2022-01-23 17:00 | NUR ---
RN NOTES: HELD METOPROLOL PT WILL START DIALYSIS ,DR DYER AWARE
--- NOTE | 2022-01-23 17:50 | NUR ---
RN NOTES: PT STARTED BEDSIDE HEMODIALYSIS USING LEFT UPPER ARM AV FISTULA
--- NOTE | 2022-01-23 19:15 | NUR ---
MAGNESIUM MILL OPERATOR CLOSING NOTES: RN CLOSING NOTE PATIENT IN BED, EYES CLOSED. PATIENT IS ABLE TO MAKE NEEDS KNOWN. A/O X 3 AT THIS TIMES. ON 2 LPM VIA NC, TOLERATING WELL. NO SOB AT THIS TIME. PATIENT HAS A LIFEVEST ON, WORKING WELL.. PATIENT HAS A RFA 22 G PATENT AND INTACT, FLUSHING WELL. PATIENT DOES NOT REPORT ANY PAIN AT THIS TIME. PATIENT NOT IN ANY APPARENT DISTRESS. SAFETY MEASURES IN PLACE: BED LOCKED AND IN LOWEST POSITION, CALL LIGHT WITHIN REACH, SIDE RAILS UP. ALL NEEDS MET AND ATTENDED. ALL ORDERS CARRIED OUT. ONGOING DIALYSIS, CARE TRANSITION MANAGER AT BEDSIDE ENDORSE TO FINISHING PAN OPERATOR NURSE FOR ANALIA.
--- NOTE | 2022-01-23 19:30 | NUR ---
CUT OFF MAN OPENING NOTES RECEIVED PATIENT IN BED; AWAKE, ALERT AND ORIENTED X 3. BREATHING EVEN AND NONLABORED. ON OXYGEN INHALATION @ 2LPM VIA NASAL CANNULA; TOLERATING WELL. NOT IN ANY FORM OF RESPIRATORY DISTRESS. DENIES ANY PAIN OR DISCOMFORT AT THIS TIME. ON TELEMETRY MONITORING WITH READING OF ATRIAL FIBRILLATION, CONTROLLED. WITH LIFEVEST ON, WORKING WELL. WITH IV ACCESS ON RIGHT FOREARM 22g: PATENT, INTACT AND SALINE LOCKED. ABLE TO MAKE NEEDS KNOWN. SAFETY MEASURES IMPLEMENTED: CALL LIGHT AND TABLE WITHIN REACH, SIDE RAILS UP X2, BED IN LOWEST LOCKED POSITION. WILL CONTINUE TO MONITOR.
[2022-01-23 20:00] VITALS: BP_SYST 110; BP_DIAS 53; BP_DIAS 63
--- NOTE | 2022-01-23 20:30 | NUR ---
RN NOTES CLONIDINE HCL 0.2 MG PATCH HELD PER PT'S REQUEST. S/P HEMODIALYSIS; OUTPUT: 1500 ML.
[2022-01-23] MEDS: ATORVASTATIN 10 MG TABLET PO SCH (21:54)
[2022-01-23] MEDS: TRAZODONE 50 MG TABLET PO SCH (21:54)
[2022-01-23] MEDS: NORTRIPTYLINE HCL 25 MG CAPSULE PO SCH (21:55)
[2022-01-23] MEDS: MIRTAZAPINE 15 MG TABLET PO SCH (21:55)
[2022-01-24] VITALS: BP 135/94
[2022-01-24] MEDS: ALBUTEROL HALF STRENGTH 1.25 MG/3 ML VIAL.NEB NEB SCH ×4 (02:23→20:26)
[2022-01-24] MEDS: IPRATROPIUM NEB FS 0.5 MG/2.5 ML AMPUL.NEB NEB SCH ×4 (02:23→20:26)
[2022-01-24 04:00] VITALS: BP 119/58
[2022-01-24] MEDS: hydrALAZINE HCL 10 MG TABLET PO SCH ×3 (05:00→21:38)
--- NOTE | 2022-01-24 05:51 | NUR ---
RN NOTES PT'S BP 128/59, OH-83: HYDRALAZINE HELD SCHEDULED FOR DIALYSIS AT 0700.
--- NOTE | 2022-01-24 06:55 | NUR ---
OPERATIONS INTELLIGENCE CLOSING NOTES PATIENT IN BED; AWAKE, A/O X 3. BREATHING EVEN AND NONLABORED. ON OXYGEN INHALATION @ 2LPM VIA NASAL CANNULA; TOLERATING WELL. NOT IN ANY FORM OF RESPIRATORY DISTRESS. DENIES ANY PAIN OR DISCOMFORT AT THIS TIME. ON TELEMETRY MONITORING WITH READING OF ATRIAL FIBRILLATION, CONTROLLED. WITH LIFEVEST ON, WORKING WELL. WITH IV ACCESS ON RIGHT FOREARM 22g: PATENT, INTACT AND SALINE LOCKED. ABLE TO MAKE NEEDS KNOWN. SAFETY MEASURES MAINTAINED: CALL LIGHT AND TABLE WITHIN REACH, SIDE RAILS UP X2, BED IN LOWEST LOCKED POSITION. ENDORSED TO RK MOHAN FOR ANALIA.
--- NOTE | 2022-01-24 07:05 | NUR ---
RN OPENING NOTES RECEIVED PATIENT AWAKE IN BED, A/Ox4, ABLE TO MAKE NEEDS KNOWN, ARMENIAN SPEAKING. ON 2L VIA NC, NO S/S OF RESPIRATORY DISTRESS. ON TELE MONITORING CONTROLLED A-FIB WITH 102 HR, NO C/O OF CHEST PAIN OR CARDIAC DISTRESS. IV ACCESS R FA #[id number] SL, INTACT AND PATENT. RAMAN AV FISTULA, AMB WITH ASSIST. USES DIAPER. SKIN IS INTACT. SAFETY MEASURES IN PLACE: BED LOCKED AND IN LOWEST POSITION, SIDE RAILS UP x2, CALL LIGHT WITHIN REACH, HOB ELEVATED. WILL CONTINUE TO MONITOR.
[2022-01-24 08:00] VITALS: BP 115/67
[2022-01-24] MEDS: FUROSEMIDE 40 MG TABLET PO SCH (09:00)
[2022-01-24] MEDS: METOPROLOL SUCCINATE 25 MG TAB.SR.24H PO SCH ×2 (09:00→17:59)
[2022-01-24] MEDS: LEVOTHYROXINE SODIUM 100 MCG TABLET PO SCH (09:14)
[2022-01-24] MEDS: CALCIUM ACETATE 667 MG CAP/TAB PO SCH ×3 (09:15→18:05)
[2022-01-24] MEDS: DOCUSATE SODIUM 100 MG CAPSULE PO SCH ×2 (09:15→17:59)
[2022-01-24] MEDS: PANTOPRAZOLE 40 MG TABLET.DR PO SCH (09:15)
[2022-01-24] MEDS: SEVELAMER CARBONATE 800 MG TABLET PO SCH ×3 (09:16→18:05)
[2022-01-24] MEDS: MULTIVITAMINS,THERAGRAN 1 UDTAB TABLET PO SCH (09:17)
[2022-01-24] MEDS: GABAPENTIN 100 MG CAPSULE PO SCH ×2 (09:17→17:59)
[2022-01-24] MEDS: APIXABAN 5 MG TABLET PO SCH ×2 (09:24→18:05)
[2022-01-24] MEDS: ASPIRIN EC 81 MG TABLET.DR PO SCH (09:25)
[2022-01-24] MEDS: FERROUS SULFATE (325 MG) 325 MG/TAB TABLET PO SCH ×2 (09:26→17:59)
--- NOTE | 2022-01-24 09:51 | NUR ---
RN NOTES HOLDING BP MEDICATION PATIENT IS SCHEDULED FOR HD TODAY. WILL CONTINUE TO MONITOR.
[2022-01-24 12:00] VITALS: BP_SYST 104; BP_SYST 107; BP_DIAS 59; BP_DIAS 61
[2022-01-24 12:30] LABS: BASOPHILS # (AUTO) 0.1 K/uL (0.0-0.2); BASOPHILS % (AUTO) 1.2 % (0.0-2.0); EOSINOPHILS % (AUTO) 8.5 % (0.0-6.0); HEMATOCRIT 31 % (39-51); HEMOGLOBIN 9.9 g/dL (13.5-17.5); LYMPHOCYTES # (AUTO) 1.1 K/uL (0.8-4.8); LYMPHOCYTES % (AUTO) 12.3 % (20.0-44.0); MEAN CORPUSCULAR HGB CONC 32 g/dl (31.0-36.0); MEAN CORPUSCULAR VOLUME 96 fL (80-96); MONOCYTES # (AUTO) 1.1 K/uL (0.1-1.30); MONOCYTES % (AUTO) 12.6 % (2.0-12.0); NEUTROPHILS # (AUTO) 5.9 K/uL (1.8-8.9); NEUTROPHILS % (AUTO) 65.4 % (43.0-81.0); PLATELET COUNT (AUTO) 260 K/uL (150-450); RED BLOOD CELL COUNT(AUTO) 3.23 MIL/uL (4.5-6.0); WHITE BLOOD COUNT (AUTO) 9.1 K/uL (4.3-11.0)
[2022-01-24 12:46] LABS: CALCIUM, SERUM 10.8 mg/dL (8.5-10.1); CARBON DIOXIDE 27 mmol/L (21-32); CHLORIDE 98 mmol/L (98-107); CREATININE 5.3 mg/dL (0.6-1.3); GLUCOSE 113 mg/dL (74-106); MAGNESIUM 2.2 mg/dL (1.8-2.4); PHOSPHORUS 2.5 mg/dL (2.5-4.9); POTASSIUM 4.2 mmol/L (3.5-5.1); SODIUM SERUM 135 mmol/L (136-145); UREA NITROGEN, BLOOD 38 mg/dL (7-18)
[2022-01-24] MEDS: ALBUMIN 25% 25 GM in PREMIX 1 EA IV PRN (13:05)
[2022-01-24 16:00] VITALS: BP 120/81
--- NOTE | 2022-01-24 18:58 | NUR ---
RN CLOSING NOTES PATIENT AWAKE IN BED, A/Ox4, ABLE TO MAKE NEEDS KNOWN, FAROESE SPEAKING. STABLE ON 2L VIA NC, NO S/S OF RESPIRATORY DISTRESS. ON TELE MONITORING CONTROLLED A-FIB WITH 100 HR, NO C/O OF CHEST PAIN OR CARDIAC DISTRESS. IV ACCESS R FA #[id number] SL, INTACT AND PATENT. RAMAN AV FISTUAL, AMB WITH ASSIST. USES DIAPER. SKIN IS INTACT. ALL PRESCRIBED MEDICATION ADMINSITERED. SAFETY MEASURES MAINTAINED: BED LOCKED AND IN LOWEST POSITION, SIDE RAILS UP x2, CALL LIGHT WITHIN REACH, HOB ELEVATED. WILL CONTINUE TO MONITOR.
--- NOTE | 2022-01-24 19:25 | NUR ---
CREASING MACHINE OPERATOR OPENING NOTES RECEIVED PATIENT IN BED; AWAKE, ALERT AND ORIENTED X 3. ON OXYGEN INHALATION @ 2LPM VIA NASAL CANNULA; WELL TOLERATED. BREATHING EVEN AND NONLABORED. NOT IN ANY FORM OF RESPIRATORY DISTRESS. DENIES ANY PAIN OR DISCOMFORT AT THIS TIME. ON TELEMETRY MONITORING WITH READING OF ATRIAL FIBRILLATION, CONTROLLED. WITH LIFEVEST ON, WORKING WELL. WITH IV ACCESS ON RIGHT FOREARM 22g: PATENT, INTACT AND SALINE LOCKED. ABLE TO MAKE NEEDS KNOWN. SAFETY MEASURES IMPLEMENTED: CALL LIGHT AND TABLE WITHIN REACH, SIDE RAILS UP X2, BED IN LOWEST LOCKED POSITION. WILL CONTINUE TO MONITOR.
[2022-01-24 20:00] VITALS: BP 147/78
[2022-01-24] MEDS: ATORVASTATIN 10 MG TABLET PO SCH (21:39)
[2022-01-24] MEDS: TRAZODONE 50 MG TABLET PO SCH (21:39)
[2022-01-24] MEDS: MIRTAZAPINE 15 MG TABLET PO SCH (21:39)
[2022-01-24] MEDS: NORTRIPTYLINE HCL 25 MG CAPSULE PO SCH (21:42)
[2022-01-25] VITALS (7 sets, daily range): BP systolic 130–144; BP diastolic 57–90
[2022-01-25] MEDS: ALBUTEROL HALF STRENGTH 1.25 MG/3 ML VIAL.NEB NEB SCH ×4 (01:30→20:16)
[2022-01-25] MEDS: IPRATROPIUM NEB FS 0.5 MG/2.5 ML AMPUL.NEB NEB SCH ×4 (01:35→20:14)
--- NOTE | 2022-01-25 01:37 | NUR ---
RT albuterol not given due to tachycardia. HR 132.
[2022-01-25] MEDS: HYDROCODONE/APAP 5/325MG TABLET PO PRN (01:46)
[2022-01-25] MEDS: hydrALAZINE HCL 10 MG TABLET PO SCH ×3 (05:45→22:26)
--- NOTE | 2022-01-25 07:00 | NUR ---
PHILOSOPHY LECTURER CLOSING NOTES PATIENT IN BED; AWAKE, A/O X 3. BREATHING EVEN AND NONLABORED. ON O2 INHALATION @ 2LPM VIA NASAL CANNULA; TOLERATING WELL. NOT IN ANY FORM OF RESPIRATORY DISTRESS. DENIES ANY PAIN OR DISCOMFORT AT THIS TIME. ON TELE MONITORING WITH READING OF ATRIAL FIBRILLATION, CONTROLLED. WITH LIFEVEST ON, WORKING WELL. WITH RIGHT FOREARM 22g: PATENT, INTACT AND SALINE LOCKED. ALL NEEDS MET. SAFETY MEASURES MAINTAINED: CALL LIGHT AND TABLE WITHIN REACH, SIDE RAILS UP X2, BED IN LOWEST LOCKED POSITION. ENDORSED TO KUSHAL MOHAN FOR ANALIA.
--- NOTE | 2022-01-25 07:57 | NUR ---
RN OPENING NOTE PATIENT RECEIVED IN BED, AO X 3, MALAGASY SPEAKING, ABLE TO RESPONDS ALL STIMULI. IN NO ACUTE DISTRESS NOTED. RESPIRATORY EVEN AND UNLABORED ON OXYGEN AT 2Ls VIA NC. SKIN IS WARM TO TOUCH, KEEP CLEAN/DRY. KEPT ELEVATED HOB FOR ENSURE AIRWAY AND ASPIRATION PRECAUTION, ALSO LOWEST POSITION OF THE BED, S/R UP X 2, BED ALARM IS ON AT ALL THE TIMES. ALL SAFETY PRECAUTION APPLIED. CALL LIGHT WITHIN REACH, WILL CONTINUE TO MONITOR.
[2022-01-25] MEDS: CALCIUM ACETATE 667 MG CAP/TAB PO SCH ×3 (08:21→17:06)
[2022-01-25] MEDS: LEVOTHYROXINE SODIUM 100 MCG TABLET PO SCH (08:21)
[2022-01-25] MEDS: PANTOPRAZOLE 40 MG TABLET.DR PO SCH (08:21)
[2022-01-25] MEDS: SEVELAMER CARBONATE 800 MG TABLET PO SCH ×3 (08:21→17:06)
[2022-01-25] MEDS: DOCUSATE SODIUM 100 MG CAPSULE PO SCH ×2 (09:09→17:06)
[2022-01-25] MEDS: FERROUS SULFATE (325 MG) 325 MG/TAB TABLET PO SCH ×2 (09:09→17:06)
[2022-01-25] MEDS: MULTIVITAMINS,THERAGRAN 1 UDTAB TABLET PO SCH (09:09)
[2022-01-25] MEDS: GABAPENTIN 100 MG CAPSULE PO SCH ×2 (09:09→17:06)
[2022-01-25] MEDS: FUROSEMIDE 40 MG TABLET PO SCH (09:09)
[2022-01-25] MEDS: METOPROLOL SUCCINATE 25 MG TAB.SR.24H PO SCH ×2 (09:09→17:07)
[2022-01-25] MEDS: ASPIRIN EC 81 MG TABLET.DR PO SCH (09:09)
[2022-01-25] MEDS: APIXABAN 5 MG TABLET PO SCH ×2 (09:12→17:11)
--- NOTE | 2022-01-25 18:50 | NUR ---
RN CLOSING NOTE PATIENT SITTING ON THE CHAIR AND WATCHING TING. IN NO ACUTE DISTRESS NOTED. RESPIRATORY EVEN AND UNLABORED ON OXYGEN AT 2Ls. SKIN IS WARM TO TOUCH, KEEP CLEAN/DRY, INTACT IV LINE. KEPT ELEVATED HOB FOR ENSURE AIRWAY AND ASPIRATION PRECAUTION. BED IN LOWEST POSITION AND LOCKED. BED ALARM IS ON AT ALL THE TIMES. ALL SAFETY MEASURED IN PLACED. CALL LIGHT WITHIN REACH, WILL ENDORSED TO NEXT SHIFT.
--- NOTE | 2022-01-25 20:00 | NUR ---
TRADITIONAL CHINESE HERBALIST NOTE: AWAKE AND ALERT TIMES THREE. SWEDISH SPEAKING. ON O2 2LPM NC. O2 SAT AT 98 %. MOIST ORAL MUCOSA. FAIR SKIN TURGOR. HOB ELEVATED AT 30 DEGREE ANGLE. LIFE VEST ON. ON TELE MONITOR AND READING OF A FIB CONTROLLED 79. RIGHT FOREARM IV 22G SALINE LOCKED. PATENT. NO S/S OF COMPLICATIONS. HOB ELEVATED AT 30 DEGREE ANGLE. BILATERAL HALF SIDE RAILS UPX2. BED LOCKED, EXIT ALARM ON, IN LOW POSITION. CALL LIGHT IN REACH. DECLINES PAIN OR DISCOMFORT.
[2022-01-25] MEDS: ALBUTEROL FS 2.5 MG/0.5 ML VIAL.NEB NEB PRN (20:14)
--- NOTE | 2022-01-25 22:10 | NUR ---
Pt recvd awake and verbal on 2 lpm NC. Neb tx given and estelle well. No adverse reaction noted. No SOB or respiratory distress noted at this time.
[2022-01-25] MEDS: ATORVASTATIN 10 MG TABLET PO SCH (22:20)
[2022-01-25] MEDS: TRAZODONE 50 MG TABLET PO SCH (22:20)
[2022-01-25] MEDS: NORTRIPTYLINE HCL 25 MG CAPSULE PO SCH (22:21)
[2022-01-25] MEDS: MIRTAZAPINE 15 MG TABLET PO SCH (22:21)
[2022-01-26] VITALS (7 sets, daily range): BP systolic 102–140; BP diastolic 60–75
[2022-01-26] MEDS: ALBUTEROL HALF STRENGTH 1.25 MG/3 ML VIAL.NEB NEB SCH ×4 (02:00→20:06)
[2022-01-26] MEDS: IPRATROPIUM NEB FS 0.5 MG/2.5 ML AMPUL.NEB NEB SCH ×4 (02:00→20:06)
[2022-01-26] MEDS: hydrALAZINE HCL 10 MG TABLET PO SCH ×3 (05:30→20:45)
--- NOTE | 2022-01-26 06:50 | NUR ---
OPEN END SPINNING OPERATOR CLOSING NOTE: AWAKE AND ALERT TIMES THREE. ARABIC SPEAKING. ON O2 2LPM NC. O2 SAT AT 98 %. MOIST ORAL MUCOSA. FAIR SKIN TURGOR. HOB ELEVATED AT 30 DEGREE ANGLE. LIFE VEST ON. ON TELE MONITOR AND READING OF A FIB 74. RIGHT FOREARM IV 22G SALINE LOCKED. PATENT. NO S/S OF COMPLICATIONS. HOB ELEVATED AT 30 DEGREE ANGLE. BILATERAL HALF SIDE RAILS UPX2. BED LOCKED, EXIT ALARM ON, IN LOW POSITION. CALL LIGHT IN REACH. DECLINES PAIN OR DISCOMFORT ABLE TO SLEEP WELL DURING NIGHT. ABLE TO TAKE ALL MEDICATIONS ORDERED. SAFETY PRECAUTIONS MAINTAINED. KEPT CLEAN AND COMFORTABLE.
--- NOTE | 2022-01-26 07:30 | NUR ---
INBOUND INGREDIENT LOGISTICS SPECIALIST OPENING NOTES RECEIVED PATIENT ON BED AWAKE AND A/O X4, LUXEMBOURGISH SPEAKING. ON O2 AT 2LPM VIA NASAL CANNULA TOLERATING WELL. NO SOB NOTED. NOT IN DISTRESS. WITH NO COMPLAINTS OF PAIN OR DISCOMFORT AT THIS TIME. WITH IV ACCESS AT THE RIGHT FOREARM G22, SALINE LOCKED, PATENT AND INTACT. WITH LEFT UPPER ARM FISTULA FOR HEMODIALYSIS. SAFETY MEASURES IN PLACED, CALL LIGHT WITHIN REACH. BED ON LOWEST LOCKED POSITION, SIDE RAILS UP X2. WILL CONTINUE TO MONITOR.
--- NOTE | 2022-01-26 07:30 | NUR ---
RN NOTE ON TELE MONITOR CURRENTLY READING CONTROLLED AFIB AT 76BPM.
[2022-01-26] MEDS: ALBUTEROL FS 2.5 MG/0.5 ML VIAL.NEB NEB PRN (08:21)
[2022-01-26] MEDS: CALCIUM ACETATE 667 MG CAP/TAB PO SCH ×3 (08:33→17:21)
[2022-01-26] MEDS: LEVOTHYROXINE SODIUM 100 MCG TABLET PO SCH (08:33)
[2022-01-26] MEDS: GABAPENTIN 100 MG CAPSULE PO SCH ×2 (08:33→17:22)
[2022-01-26] MEDS: SEVELAMER CARBONATE 800 MG TABLET PO SCH ×3 (08:33→17:22)
[2022-01-26] MEDS: FERROUS SULFATE (325 MG) 325 MG/TAB TABLET PO SCH ×2 (08:33→17:24)
[2022-01-26] MEDS: MULTIVITAMINS,THERAGRAN 1 UDTAB TABLET PO SCH (08:33)
[2022-01-26] MEDS: PANTOPRAZOLE 40 MG TABLET.DR PO SCH (08:33)
[2022-01-26] MEDS: DOCUSATE SODIUM 100 MG CAPSULE PO SCH ×2 (08:33→17:22)
[2022-01-26] MEDS: ASPIRIN EC 81 MG TABLET.DR PO SCH (08:33)
[2022-01-26] MEDS: METOPROLOL SUCCINATE 25 MG TAB.SR.24H PO SCH ×2 (08:34→17:22)
[2022-01-26] MEDS: FUROSEMIDE 40 MG TABLET PO SCH (08:34)
[2022-01-26] MEDS: APIXABAN 5 MG TABLET PO SCH ×2 (08:35→17:24)
--- NOTE | 2022-01-26 18:42 | NUR ---
YEAST STACKER CLOSING NOTES PATIENT ON BED AWAKE AND A/O X4, MONGOLIAN SPEAKING. ON O2 AT 2LPM VIA NASAL CANNULA TOLERATING WELL. NO SOB NOTED. NOT IN DISTRESS. ON TELE MONITOR CURRENTLY READING CONTROLLED A-FIB AT 62BPM. WITH NO COMPLAINTS OF PAIN OR DISCOMFORT AT THIS TIME. WITH IV ACCESS AT THE RIGHT FOREARM G22, SALINE LOCKED, PATENT AND INTACT. WITH LEFT UPPER ARM FISTULA FOR HEMODIALYSIS. DUE MEDS GIVEN. SAFETY MEASURES IN PLACED, CALL LIGHT WITHIN REACH. BED ON LOWEST LOCKED POSITION, SIDE RAILS UP X2. WILL ENDORSE TO NEXT SHIFT FOR ANALIA.
--- NOTE | 2022-01-26 19:10 | NUR ---
RN OPENING NOTE RECEIVED PT IN BED AWAKE, A/OX3. NO SIGNS OF RESPIRATORY DISTRESS OR SOB NOTED. ON 2L NC SATURATING WELL. TELE MONITOR READING A FIB CONTROLLED AT 83BPM. RFA 22G SL AND RAMAN FISTULA. SAFETY CHECKS IN PLACE: BED LOCKED, BED IN LOWEST POSITION, CALL LIGHT WITHIN REACH, SIDE RAILS X2. WILL CONT PLAN OF CARE.
--- NOTE | 2022-01-26 20:45 | NUR ---
RN NOTE BP MEDS HELD DUE TO LOW BP: 102/61. WILL CONT PLAN OF CARE.
[2022-01-26] MEDS: TRAZODONE 50 MG TABLET PO SCH (21:52)
[2022-01-26] MEDS: NORTRIPTYLINE HCL 25 MG CAPSULE PO SCH (21:52)
[2022-01-26] MEDS: ATORVASTATIN 10 MG TABLET PO SCH (21:52)
[2022-01-26] MEDS: MIRTAZAPINE 15 MG TABLET PO SCH (21:52)
[2022-01-27] VITALS: BP 115/49
[2022-01-27 00:02] VITALS: BP 115/49
[2022-01-27] MEDS: IPRATROPIUM NEB FS 0.5 MG/2.5 ML AMPUL.NEB NEB SCH ×3 (02:03→13:59)
[2022-01-27] MEDS: ALBUTEROL HALF STRENGTH 1.25 MG/3 ML VIAL.NEB NEB SCH ×3 (02:03→13:59)
[2022-01-27 04:00] VITALS: BP 129/67
[2022-01-27] MEDS: hydrALAZINE HCL 10 MG TABLET PO SCH ×2 (05:00→13:00)
--- NOTE | 2022-01-27 06:33 | NUR ---
RN CLOSING NOTE PT IN BED AWAKE, A.OX3. NO SIGNS OF RESPIRATORY DISTRESS OR SOB AT THIS TIME. ON NC 2L TOLERATING WELL. TELE MONITOR READING A FIB WITH OCCASIONAL PVC AT 68, LIFE VEST WITH PAINTER ORDNANCE AT BEDSIDE. NO C/O OF PAIN OR DISCOMFORT AT THIS TIME. RFA 22G SL INTACT AND PATENT, RAMAN FISTULA. ALL NEEDS ATTENDED TO, ALL SCHEDULED MEDS GIVEN. SAFETY CHECKS IN PLACE: BED LOCKED, BED IN LOWEST POSITION, SIDE RIALS X2, CALL LIGHT WITHIN REACH. WILL ENDORSE TO DAY SHIFT NURSE FOR ANALIA.
--- NOTE | 2022-01-27 07:42 | NUR ---
LITHOGRAPHIC CAMERA OPERATOR OPENING NOTE RECEIVED PATIENT IN BED AWAKE, AOX3, ENGLISH SPEAKING ONLY, PATIENT IS ON 2LPM VIA NC OXYGEN TOLERATING WELL AT 98%, PATIENT IS S/P UNWITNESSED FALL ENDORSED TO ME BY THE OUTGOING NIGHT RNS. PATIENT HAS NO NOTED BROKEN SKIN, DENIED HEAD TRAUMA, AND PAIN. PATIENT VS IS STABLE WITH BP-129/62 T-81, RR-21, T-97.6. AN EGAN HAS BEEN INFORMED AND HE ONLY ORDERED TO MONITOR THE PATIENT. TELE MONITOR READS AFIB WITH OCCASIONAL PVCS AT 86 HR, WITH LIFE VEST WITH ARCHEOLOGY FACULTY MEMBER AT BEDSIDE, BATTERY HAS BEEN REPLACED TO ENSURE PROPER FUNCTIONING. WITH RFA 22G SL INTACT AND PATENT, FLUSHING WELL. WITH RAMAN FISTULA FOR HD. SAFETY PRECAUTIONS IN PLACE: BED LOCKED, IN LOWEST POSITION, SIDE RIALS X2, CALL LIGHT WITHIN REACH AND TRAY TABLLE WITHIN REACH, WILL CONTINUE TO MONITOR DURING MY SHIFT.
[2022-01-27 08:00] VITALS: BP 129/62
[2022-01-27] MEDS: LEVOTHYROXINE SODIUM 100 MCG TABLET PO SCH (08:14)
[2022-01-27] MEDS: PANTOPRAZOLE 40 MG TABLET.DR PO SCH (08:15)
[2022-01-27] MEDS: SEVELAMER CARBONATE 800 MG TABLET PO SCH ×2 (08:15→12:15)
[2022-01-27] MEDS: CALCIUM ACETATE 667 MG CAP/TAB PO SCH ×2 (08:15→12:18)
--- NOTE | 2022-01-27 08:57 | NUR ---
RN NOTES -DVT PUMP VTE SCORE OF 5, DVT PUMP PLACED PER ORDER.
--- NOTE | 2022-01-27 08:58 | NUR ---
RN NOTES - POST FALL INCIDENT MONITORING DR EGAN MADE AWARE OF THE FALL OCCURRED AROUND 719, ORDERED TO MONITOR PATIENT. OF 901, PATIENT DENIED ANY PAIN, NO S/SX OF SOB, STILL ON 2LPM VIA NC SATURATING AT 99% BP-130/65, P-82, R-21, AFEBRILE AT 97.4. WILL CONTINUE TO MONITOR.
[2022-01-27] MEDS ORDERED: EPOETIN ALFA (10,000 UNIT) 10,000 UNIT/ML VIAL IV ONE (09:00)
--- NOTE | 2022-01-27 09:00 | NUR ---
RN NOTES DIALYSIS ONGOING, RN AT BEDSIDE.
[2022-01-27] MEDS: FERROUS SULFATE (325 MG) 325 MG/TAB TABLET PO SCH ×2 (10:06→12:16)
[2022-01-27] MEDS: GABAPENTIN 100 MG CAPSULE PO SCH ×2 (10:06→17:00)
[2022-01-27] MEDS: MULTIVITAMINS,THERAGRAN 1 UDTAB TABLET PO SCH (10:06)
[2022-01-27] MEDS: DOCUSATE SODIUM 100 MG CAPSULE PO SCH ×2 (10:09→17:00)
[2022-01-27 10:48] LABS: BASOPHILS # (AUTO) 0.1 K/uL (0.0-0.2); BASOPHILS % (AUTO) 0.9 % (0.0-2.0); HEMATOCRIT 30 % (39-51); HEMOGLOBIN 10.1 g/dL (13.5-17.5); LYMPHOCYTES % (AUTO) 9.3 % (20.0-44.0); MEAN CORPUSCULAR HGB CONC 33 g/dl (31.0-36.0); MEAN CORPUSCULAR VOLUME 94 fL (80-96); MONOCYTES # (AUTO) 0.9 K/uL (0.1-1.30); MONOCYTES % (AUTO) 8.8 % (2.0-12.0); NEUTROPHILS # (AUTO) 7.5 K/uL (1.8-8.9); PLATELET COUNT (AUTO) 264 K/uL (150-450); RED BLOOD CELL COUNT(AUTO) 3.25 MIL/uL (4.5-6.0); WHITE BLOOD COUNT (AUTO) 10.3 K/uL (4.3-11.0)
--- NOTE | 2022-01-27 11:46 | NUR ---
RN NOTES HD DONE WITH NO BLEEDING ON RAMAN AV FISTULA, COVERED WITH DRY DRESSING, 3L OF FLUIDS WAS TAKEN FROM THE PROCEDURE. PATIENT STABLE WITH BP 125/103, HR -76 BPM.
--- NOTE | 2022-01-27 12:14 | NUR ---
RN NOTES CHANGED THE BATTERY OF LIFE VEST WEARABLE DEFIBRILLATOR.
--- NOTE | 2022-01-27 12:15 | NUR ---
RN NOTES 9AM HTN AND BLOOD THINNERS WERE NOT GIVEN D/T HD UNTIL NOW.
[2022-01-27] MEDS: ASPIRIN EC 81 MG TABLET.DR PO SCH (12:16)
[2022-01-27] MEDS: METOPROLOL SUCCINATE 25 MG TAB.SR.24H PO SCH ×2 (12:17→17:00)
[2022-01-27] MEDS: APIXABAN 5 MG TABLET PO SCH ×2 (12:19→17:00)
[2022-01-27] MEDS: FUROSEMIDE 40 MG TABLET PO SCH (12:22)
--- NOTE | 2022-01-27 13:02 | NUR ---
PERSONAL INVESTMENT ADVISER OPENING NOTE RECEIVED PATIENT IN BED AWAKE, AOX3, UKRAINIAN SPEAKING ONLY, PATIENT IS ON 2LPM VIA NC OXYGEN TOLERATING WELL AT 98%, PATIENT IS S/P UNWITNESSED FALL ENDORSED TO ME BY THE OUTGOING NIGHT RNS. PATIENT HAS NO NOTED BROKEN SKIN, DENIED HEAD TRAUMA, AND PAIN. PATIENT VS IS STABLE WITH BP-129/62 T-81, RR-21, T-97.6. AN EGAN HAS BEEN INFORMED AND HE ONLY ORDERED TO MONITOR THE PATIENT. TELE MONITOR READS AFIB WITH OCCASIONAL PVCS AT 86 HR, WITH LIFE VEST WITH STAPLER MACHINE AT BEDSIDE, BATTERY HAS BEEN REPLACED TO ENSURE PROPER FUNCTIONING. WITH RFA 22G SL INTACT AND PATENT, FLUSHING WELL. WITH RAMAN FISTULA FOR HD. SAFETY PRECAUTIONS IN PLACE: BED LOCKED, IN LOWEST POSITION, SIDE RIALS X2, CALL LIGHT WITHIN REACH AND TRAY TABLLE WITHIN REACH, WILL CONTINUE TO MONITOR DURING MY SHIFT. Addendum: 01/27/22 at 1310 by IRMA GUERRERO RN DISREGARD, INCORRECT TIME. PLEASE SEE [id number].
[2022-01-27] MEDS ORDERED: EPOETIN ALFA-EPBX 10,000 UNIT/ML VIAL IV ONE (15:00)
--- NOTE | 2022-01-27 15:22 | NUR ---
RN NOTES AN EGAN CUSTOMER SPECIALIST AT BEDSIDE WITH AND NIECE
--- NOTE | 2022-01-27 15:23 | NUR ---
RN NOTES COVID ANTIGEN SPECIMEN TAKEN AND SUBMITTED TO THE LAB.
[2022-01-27 17:00] VITALS: BP 117/103
--- NOTE | 2022-01-27 17:35 | NUR ---
RESEARCH GEOLOGIST DISCHARGE NOTE PT DISCHARGED TO [facility] IN STABLE CONDITION. PT A/O X4, MALTESE SPEAKING, ABLE TO MAKE NEEDS KNOWN. ON 2LPM OXYGEN VIA NASAL CANNULA, SATURATING WELL WITH SPO2 98%. NO SOB NOTED. NOT IN ANY SIGN OF RESPIRATORY DISTRESS. LAST TELE READING WAS AFIB WITH PVC AT 86 BPM. VITAL SIGNS TAKEN, STABLE, AND RECORDED. PT'S SKIN INTACT, SAME BRUISING ON THE RAMAN AV FISTULA SITE, BUTTOCKS CLEAN - PICTURES TAKEN. DENIES PAIN OR DISCOMFORT AT THIS TIME. ALL BELONGINGS ACCOUNTED FOR INCLUDING MONEY AND LIFE VEST DEVICE AND WITNESSED BY JOHNNY SCANLON. DISCHARGE INSTRUCTIONS RELAYED TO MARQUES ORTIZ OF [facility], MEDS RECONCILIATION AND COVID TEST GIVEN. IV ACCESS IN RFA G#22 SL REMOVED WITH NO ACTIVE BLEEDING NOTED. DRY PRESSURE DRESSING APPLIED AT SITE. PT LEFT THE UNIT AT 1730 VIA GURNEY ACCOMPANIED BY 2 BREEDING MANAGER. CALLED NOEL CLAYTON ([phone]) TO INFORM ABOUT THE DC. MD AND CHARGE NURSE AWARE OF DISCHARGE.
== END 2022-01-27 17:51 | DRG 280 ==
LOC: ER 14:29 → TELE 18:22
PROVIDERS: ADMIT Nurse Practitioner Acute Care; ATTEND Nurse Practitioner Acute Care
PROC: 5A1D70Z Performance of Urinary Filtration, Intermittent, Less than 6 Hours Per Day (ICD-10-PCS; principal; 2022-01-15)
DX: I13.2 Hypertensive heart and chronic kidney disease with heart failure and with stage 5 chronic kidney disease, or end stage renal disease (principal); I50.43 Acute on chronic combined systolic (congestive) and diastolic (congestive) heart failure; I21.A1 Myocardial infarction type 2; N18.6 End stage renal disease; D68.59 Other primary thrombophilia; I48.19 Other persistent atrial fibrillation; J90 Pleural effusion, not elsewhere classified; J84.9 Interstitial pulmonary disease, unspecified; E66.2 Morbid (severe) obesity with alveolar hypoventilation; I42.9 Cardiomyopathy, unspecified; I25.110 Atherosclerotic heart disease of native coronary artery with unstable angina pectoris; Z99.2 Dependence on renal dialysis; I25.10 Atherosclerotic heart disease of native coronary artery without angina pectoris; Z20.822 Contact with and (suspected) exposure to COVID-19; E78.5 Hyperlipidemia, unspecified; Z79.01 Long term (current) use of anticoagulants; Z79.899 Other long term (current) drug therapy; I48.91 Unspecified atrial fibrillation; J44.9 Chronic obstructive pulmonary disease, unspecified; K21.9 Gastro-esophageal reflux disease without esophagitis; F32.A Depression, unspecified; Z68.28 Body mass index [BMI] 28.0-28.9, adult; D63.8 Anemia in other chronic diseases classified elsewhere; E03.2 Hypothyroidism due to medicaments and other exogenous substances; F17.200 Nicotine dependence, unspecified, uncomplicated; T46.2X5A Adverse effect of other antidysrhythmic drugs, initial encounter; Y92.129 Unspecified place in nursing home as the place of occurrence of the external cause
CPT/HCPCS: 36415; 36600; 71045-TC; 71250-TC; 80048-TC; 82040-TC; 82803-TC; 83735-TC; 84100-TC; 84484-TC; 85025-TC; 86706; 87081-TC; 87340; 90935-TC; 92526; 92611-TC; 93307-TC; 94799-TC; 97116-TC; 97530-TC; A4216; C9803; G0378; J0885; J2270; J3490; J7030; P9047; Q0177